=== PATIENT | female | born 1965 | race African-American/Black ===

== ENCOUNTER → 2024-08-12 13:02 | Outpatient (REF) | payer MEDICARE, OTHER, SELFPAY | LOC: RCS 13:02 | PROVIDERS: ATTENDING PHYSICIAN Internal Medicine Cardiovascular Disease; FAMILY PHYSICIAN Internal Medicine | DX: I10 Essential (primary) hypertension (principal); R06.02 Shortness of breath | CPT/HCPCS: 93306 ==

== ENCOUNTER → 2024-08-13 09:36 | Outpatient (REF) | payer MEDICARE, OTHER, SELFPAY | LOC: DHSLP 09:36 | PROVIDERS: ATTENDING PHYSICIAN Internal Medicine Critical Care Medicine; FAMILY PHYSICIAN Internal Medicine | DX: G47.33 Obstructive sleep apnea (adult) (pediatric) (principal); R09.02 Hypoxemia | CPT/HCPCS: 95810 ==

== ENCOUNTER 2024-12-26 07:28 | Day surgery (SDC) | payer MEDICARE, OTHER, SELFPAY ==
[2024-12-26 08:23] LABS: Glucose - Point of Care 95 mg/dl (70-99)
== END 2024-12-26 10:40 | disposition home or self-care (01) ==
LOC: CATH 07:28
PROVIDERS: ATTENDING PHYSICIAN Internal Medicine Cardiovascular Disease; FAMILY PHYSICIAN Internal Medicine; OTHER PHYSICIAN Internal Medicine Cardiovascular Disease
DX: I08.1 Rheumatic disorders of both mitral and tricuspid valves (principal); I70.0 Atherosclerosis of aorta
CPT/HCPCS: 93312; 93320; 93325; 82962

== ENCOUNTER 2025-01-06 06:24 | Day surgery (SDC) | payer MEDICARE, OTHER, SELFPAY ==
[2025-01-06] VITALS (12 sets, daily range): BP systolic 112–190; BP diastolic 65–176; BMI 34.9; BMI 36.8
[2025-01-06 07:22] LABS: Glucose - Point of Care 91 mg/dl (70-99)
[2025-01-06] MEDS: LOW STRENGTH ASPIRIN 162 MG PO (07:28)
[2025-01-06 07:38] LABS: Hematocrit 47.3 % (37.0-47.0); Hemoglobin 15.0 g/dL (12.0-16.0); Mean Corp Hgb Conc. 31.7 g/dL (33.0-37.0); Mean Corpuscular Volume 107.0 fL (81.0-99.0); Platelet Count 344 10^3/uL (130-400); Red Cell Dist. Width 23.6 % (11.5-14.5)
[2025-01-06] MEDS: NSS 291 ML IV (07:55)
--- NOTE | 2025-01-06 09:15 | ITS.CL.CATH ---
[employer] - Catheterization
Cardiac Catheterization
Procedure Report:
LEFT AND RIGHT HEART CATHETERIZATION
Date of Procedure: January 06, 2025
Referring: Dr. Katya Ayers
PROCEDURES:
1. Left heart catheterization, coronary angiogram.
2. Moderate sedation.
3. Right heart catheterization
INDICATION: Preoperative prior to mitral valve intervention
ACCESS: Right radial artery, 6Fr. sheath, under US guidance.
HEMODYNAMICS : (mmHg)
RA (m) : 16
RV (s/d,m) : 63/11, 60
PA (s/d, m) : 63/27, 42
PCWP (m) : 20
PA saturation: 65.7% on room air
AO saturation: 84.9% on room air
RA saturation: 66.5% on room air
Cardiac Output : 5.20 L/min by Kavon calculate
Cardiac Index : 2.58 L/min/m-2 by Kavon calculation
Systemic vascular resistance: 1277 dsc^(-5)
Pulmonary vascular resistance: 3.85 curtis unit
Heart rate: 75 bpm
AO (s/d) : 146/80
LVEDP : 24
No significant gradient across the aortic valve to suggest aortic stenosis.
CORONARY FINDINGS
Dominance: Codominant
Left Main Trunk (LMT): Large caliber vessel that gives rise to the LAD and LCx branches and is free of angiographic disease.
Left Anterior Descending Artery (LAD): Large caliber vessel that gives off 2 major diagonal branches as it courses along the anterior inter-ventricular groove before wrapping around the cardiac apex. The LAD and its branches are free of
angiographic disease.
Left Circumflex Artery (LCx): Large caliber codominant vessel that gives off 2 major obtuse marginal (OM) branches as it courses along the atrio-ventricular (AV) groove. There is mild diffuse atherosclerotic plaque
Right Coronary Artery (RCA): Small to medium caliber caliber dominant vessel that gives rise to a very small posterior descending artery (RPDA) and very small postero-lateral ventricular (RPLV) branches distally. The RCA and its branches are free
of angiographic disease.
SEDATION: 37 minutes of procedural sedation was utilized. IV Midazolam and IV Fentanyl were administered. An independent medical practice administrator was present to assist with and help manage the patient's level of consciousness and physiologic status.
RADIATION SUMMARY: Fluoro Time (min): 2.8, Dose (mGy): 322.47, DAP (Gy.cm2) : 23.6
Closure Device: There were no immediate intra-procedural complications. The sheath was pulled in the syrup machine laborer and a vascular-band applied to the right wrist for radial artery hemostasis using the patent hemostasis technique. Manual pressure was
held over right common femoral vein with successful hemostasis.
CONCLUSIONS
1. No obstructive coronary artery disease.
2. Significantly elevated right and left-sided filling pressures with severe pulmonary hypertension and normal cardiac output.
RECOMMENDATIONS
1. Wean radial band per protocol. Monitor right hand perfusion and for bleeding from the radial site following removal of the vascular-band following trans-radial access.
2. Continue aggressive medical therapy and risk factor modification for secondary CAD prevention.
3. Hydrate with normal saline to mitigate the risk of contrast-induced acute kidney injury.
4. CT surgery consult to determine options for mitral valve intervention for severe symptomatic mitral regurgitation noted on echocardiogram.
Copy to: Dr. Katya Ayers and Dr. Rd Tineo
Aurora Ceja MD, [facility], [facility]
[2025-01-06 09:24] LABS: Blood Urea Nitrogen 25 mg/dl (7-17); Calcium 8.9 mg/dl (8.4-10.2); Carbon Dioxide 27 mmol/L (22-30); Chloride 109 mmol/L (98-107); Estimated Creatinine Clearance 56 ml/min; Glucose 98 mg/dl (70-99); Potassium 4.1 mmol/L (3.5-5.1); Sodium 139 mmol/L (135-145); eGFR 51.50
[2025-01-06] MEDS: LASIX 40 MG IV (11:46)
== END 2025-01-06 12:02 | disposition home or self-care (01) ==
LOC: CATH 06:24
PROVIDERS: ATTENDING PHYSICIAN Internal Medicine Interventional Cardiology
DX: I27.20 Pulmonary hypertension, unspecified (principal); I50.32 Chronic diastolic (congestive) heart failure; I13.0 Hypertensive heart and chronic kidney disease with heart failure and stage 1 through stage 4 chronic kidney disease, or unspecified chronic kidney disease; E11.22 Type 2 diabetes mellitus with diabetic chronic kidney disease; N18.9 Chronic kidney disease, unspecified; I50.22 Chronic systolic (congestive) heart failure; Z79.01 Long term (current) use of anticoagulants; Z79.85 Long-term (current) use of injectable non-insulin antidiabetic drugs; Z79.899 Other long term (current) drug therapy
CPT/HCPCS: 99152; 99153; 80048; 82962; 85027; 93460; C1894

== ENCOUNTER 2025-02-28 14:15 | Inpatient (IN) | payer MEDICARE, OTHER, SELFPAY ==
[2025-02-28 14:38] VITALS: BP 117/68
[2025-02-28 14:46] VITALS: BP 117/58
[2025-02-28 14:47] VITALS: BMI 34.8
[2025-02-28 15:31] VITALS: BP 96/37
[2025-02-28 15:37] LABS: APTT 48.5 Sec (23.4-35.0)
--- NOTE | 2025-02-28 15:42 | PTCARENOTE ---
Pt a direct admit from home pre-operatively for an MVR +LOUIS E on Monday, 03/04. Pt AAOx3 w/no c/o CP or SOB. Pt ambulated into the rm using a single point cane w/a steady gate. Pt's VSS on arrival w/HR in the 70's & BP 117/58. Pt is SR on telemetry
monitoring. Pt oriented to rm, new IV line placed, & blood work drawn. Pt sent for pre-op testing as ordered. Plan of care ongoing.
--- NOTE | 2025-02-28 16:00 | HPS.HSE ---
Family Physician
-
Family Physician: Holli Gunn
Chief Complaint
-
pre-op admission for Xarelto to IV Heparin bridge
History of Present Illness
59-year-old female was electively admitted on 02/28/2025 for Xarelto to IV heparin conversion preadmission testing prior to mitral valve repair for severe mitral regurgitation, scheduled for 03/04/2025. Patient currently lives in a halfway and has
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 Please see CT office note from 01/27/25 for further details.
R/L heart cath 01/06/25:
RA (m) : 16
RV (s/d,m) : 63/11, 60
PA (s/d, m) : 63/27, 42
PCWP (m) : 20
Non-obstructive coronary disease
SHAVON 12/26/24:
Normal left ventricular size and systolic function. No regional wall motion abnormalities are seen. The ejection fraction is estimated at 60-65%. Mild concentric left ventricular hypertrophy. Normal right ventricular size and function. Thickened
restricted mitral leaflets with reduced excursion suggestive of rheumatic mitral valve disease. Mitral sclerosis without stenosis; mean mitral valve gradient 3 mmHg. Severe central mitral regurgitation with severely dilated left atrium. Moderate
tricuspid regurgitation. Estimated pulmonary artery pressure is 50 mmHg assuming right atrial pressure of 3 mmHg.
Medical History
Past Medical History
Past Medical History: Reports Other
Additional Past Medical History:
Pulmonary embolism 2018 & 2023 w/thrombectomy
Obstructive sleep apnea with CPAP use
Hypertension
Tobacco dependence
Type 2 diabetes
Depression
Hyperlipidemia
Von Willebrand disease
Polycythemia vera
Right subdural hematoma from fall requiring neurosurgical intervention (01/29/2021)
Iliac artery thrombosis
Cerebral hemorrhage
Chronic kidney disease stage II
Pulmonary hypertension
Hard of hearing
Past Surgical History: Reports Other
Additional Past Surgical History:
2004
Tonsillectomy
Right L4-L5 IL�LAUREN (02/01/2022)
Cautery of duodenal ectasia stomach ectasia at [facility] (2022)
Social History
Tobacco: Former Smoker (Quit 2021 ([id number] history))
Alcohol: None
Drug: None
Personal: Single
Living: Other (halfway)
Employment: Not Employed
Family History
Family History: Not pertinent
Allergies / Home Medications
Allergies reflects when Allergies were last updated in [facility].
Home Medications with original date entered in [facility]
Allergy/Medication List:
Allergies
Allergy/AdvReac Type Severity Reaction Status Date / Time
No Known Allergies Allergy Verified 01/06/25 07:41
Home Medications
�Medication �Instructions �Recorded
clonazepam 1 mg tablet 3 mg PO TID Mental Health/Anxiety 10/08/20
hydroxyurea 500 mg capsule 1,500 mg PO DAILY POLYCYTHEMIA VERA 10/08/20
rivaroxaban 20 mg tablet (Xarelto) 20 mg PO DAILY Blood clot 10/08/20
prevention/tx
atorvastatin 40 mg tablet 40 mg PO HS High cholesterol 01/12/21
bupropion HCl 150 mg 24 hr tablet, 150 mg PO DAILY mental health 06/15/22
extended release (Wellbutrin XL)
dapagliflozin propanediol 10 mg 10 mg PO DAILY Heart Failure 06/15/22
tablet (Farxiga)
metoprolol succinate 100 mg 50 mg (1/2 x 100 mg) PO DAILY #30 06/19/22
tablet,extended release 24 hr tabs
bupropion HCl 100 mg tablet 300 mg PO DAILY 12/26/24
cholecalciferol (vitamin D3) 10 20 mcg PO DAILY 12/26/24
mcg (400 unit) chewable tablet
(Vitamin D3)
famotidine 20 mg tablet 20 mg PO PRN PRN GERD 12/26/24
fluticasone propionate 50 1 spray intranasal DAILY 12/26/24
mcg/actuation nasal
spray,suspension
insulin glargine 100 unit/mL (3 10 unit SC BID 12/26/24
mL) subcutaneous pen (Basaglar
KwikPen U-100 Insulin)
magnesium 200 mg tablet 400 mg PO DAILY 12/26/24
melatonin 10 mg tablet 10 mg PO HS 12/26/24
pantoprazole 40 mg tablet,delayed 40 mg PO BID 12/26/24
release
quetiapine 100 mg tablet (Seroquel) 100 mg PO HS 12/26/24
semaglutide 0.25 mg or 0.5 mg (2 0.5 mg SC QWEEK 12/26/24
mg/3 mL) subcutaneous pen injector
(Ozempic)
zolpidem 12.5 mg tablet,extended 12.5 mg PO HS 12/26/24
release,multiphase
furosemide 40 mg tablet 60 mg (1.5 x 40 mg) PO DAILY Fluid 01/06/25
retention/Swelling #0 tabs
Review of Systems
-
History Source: Patient
Constitutional: Reports No Symptoms
EENT: Reports No Symptoms
Respiratory: Reports No Symptoms
Cardiac: Reports No Symptoms
Abdomen/GI: Reports No Symptoms
: Reports No Symptoms
Musculoskeletal: Reports No Symptoms
Skin: Reports No Symptoms
Neurological: Reports No Symptoms
Endocrine: Reports No Symptoms
Hematologic/Lymphatic: Reports No Symptoms
Psych: Reports No Symptoms
Physical Exam
Vital Signs
Vital Signs
Temp Pulse Resp BP Pulse Ox
98.4 F 77 18 96/37 98
02/28/25 14:52 02/28/25 15:31 02/28/25 14:52 02/28/25 15:31 02/28/25 14:52
Physical Exam
General: Well Developed, Well Nourished, No Apparent Distress, Comfortable and Conversant
HEENT: NormoCephalic, Anicteric, Moist mucous membranes, PERRLA, No Ptosis and Neck Nontender
Respiratory: Clear
Cardiac: S1/S2, Regular Rhythm and Murmur (II/ HSM LSB 5th ICS>axillae)
Breast: Deferred by me
GI: Soft, Non Tender, Non Distended and Normal Bowel Sounds
Rectal: Deferred by Provider
Genito-urinary: Deferred by me
Musculoskeletal: No Clubbing, No Cyanosis, No Edema and Other (ambulates with cane)
Skin: Warm and Dry
Neuro: AO x 3, Nonfocal/grossly intact and No Sensory Deficits
Hematologic/Lymphatic: No Lymphadenopathy
Psych: Calm
Laboratory Results
-
Laboratory Results
APTT 48.5 Sec (23.4-35.0) H 02/28/25 15:18
Data Reviewed
-
Diagnostic Radiology: Report Reviewed by me and Discussed with Physician
CT Scan: Report Reviewed by me and Discussed with Physician
Lab Data: Labs Reviewed by me and Discussed with Physician
Old Records: Reviewed
Impression/Plan
-
IMPRESSION: 59-year-old female admitted preop for Xarelto conversion to IV heparin (prior to planned MVR on 03/04/25) due to history of JAK2 polycythemia vera with hypercoagulable complications.
PLAN:
# JAK2 polycythemia vera, with hx pulmonary embolism 2018
- Last Xarelto begin IV Heparin per protocol
- continue hydroxyurea
- last Xarelto dose 02/27/25
# Severe mitral regurgitation
- for MV repair vs replacement and left atrial appendage clip with Dr. Tineo 03/04
- continue home Lasix
# T2DM
- stop Farxiga and Ozempic d/t scheduled MVR 03/04
- continue Basiglar 10u BID
# Depression
-continue home Seroquel, clonazepam, Bupropion, Ambien, melatonin
# Hyperlipidemia
- continue home Lipitor
# GERD
- continue home Protonix
# Class II obesity (BMI 34.8)
- carb controlled diet
[2025-02-28 16:45] VITALS: BMI 34.8
[2025-02-28] MEDS: HEPARIN 25000 UNITS/250 ML IV (17:59)
[2025-02-28] MEDS: FLUSH (NSS) 1 FLUSH IV (18:03)
[2025-02-28 18:09] LABS: Glucose - Point of Care 109 mg/dl (70-99)
[2025-02-28 19:38] VITALS: BP 120/74
[2025-02-28 19:59] LABS: Hematocrit 42.5 % (37.0-47.0); Hemoglobin 14.0 g/dL (12.0-16.0); Mean Corp Hgb Conc. 32.9 g/dL (33.0-37.0); Mean Corpuscular Volume 117.1 fL (81.0-99.0); Platelet Count 279 10^3/uL (130-400); Red Cell Dist. Width 18.6 % (11.5-14.5)
[2025-02-28 20:26] LABS: Glucose - Point of Care 118 mg/dl (70-99)
[2025-02-28] MEDS: PROTONIX 40 MG PO (20:26)
[2025-02-28] MEDS: LANTUS 0.1 UNITS SC (20:26)
[2025-02-28 21:57] LABS: Normal RBC Morphology No
[2025-02-28 21:58] LABS: Anisocytosis 1+
[2025-02-28 22:02] LABS: Macrocytosis 3+; Ovalocytes 1+
--- NOTE | 2025-02-28 22:12 | PTCARENOTE ---
Patient received at change of shift out of bed ambulating. Heparin gtt infusing at 1000units/hr. The patient offers no complaints of pain. Sinus rhythm on telemetry. Oxygen saturation 98% on room air. Plan of care discussed. Home med rec completed.
Call kolb within reach. Care ongoing.
[2025-02-28] MEDS: AMBIEN 10 MG PO (22:20)
[2025-02-28] MEDS: LIPITOR 40 MG PO (22:20)
[2025-02-28] MEDS: SEROQUEL 100 MG PO (22:20)
[2025-02-28] MEDS: KLONOPIN 1 MG PO (22:20)
[2025-02-28] MEDS: MELATONIN 10 MG PO (22:20)
[2025-02-28 22:24] VITALS: BP 98/65
[2025-03-01] VITALS (8 sets, daily range): BP systolic 98–128; BP diastolic 59–73; BMI 34.9
[2025-03-01] MEDS: TYLENOL 650 MG PO (00:07)
[2025-03-01 00:34] LABS: APTT 74.6 Sec (23.4-35.0)
--- NOTE | 2025-03-01 03:44 | W.PN.CT ---
Today's Communication / Plan
-
-no issues overnight
-continue iv Heparin- renewed
-follow PAT results
-plans for mitral valve repair for severe mitral regurgitation, scheduled for 03/04/2025.
Assessment / Plan
-
Impression:
- electively admitted on 02/28/2025 for Xarelto to IV heparin conversion preadmission testing prior to mitral valve repair for severe mitral regurgitation, scheduled for 03/04/2025.
- JAK2 polycythemia vera with history of hypercoagulable complications requiring chronic daily DOAC
- Pulmonary embolism 2018 & 2023 w/thrombectomy
- Obstructive sleep apnea with CPAP use
- Hypertension
- Tobacco dependence
- Type 2 diabetes
- Depression
- Hyperlipidemia
- Von Willebrand disease
- Polycythemia vera
- Right subdural hematoma from fall requiring neurosurgical intervention (01/29/2021)
- Iliac artery thrombosis
- Cerebral hemorrhage
- Chronic kidney disease stage II
- Pulmonary hypertension
- Hard of hearing
- 2004
- Tonsillectomy
- Right L4-L5 IL�LAUREN (02/01/2022)
- Cautery of duodenal ectasia stomach ectasia at [facility] (2022)
Discussed patient care with: Nursing and Care Team
Subjective
-
Date of Service: March 01, 2025
Objective Data
-
APTT 74.6 Sec (23.4-35.0) H 03/01/25 00:16
Vital Signs
Vital Signs
Temp Pulse Resp BP Pulse Ox
98 F 74 16 98/59 93
03/01/25 03:12 03/01/25 03:12 03/01/25 03:12 03/01/25 03:10 03/01/25 03:12
CT Intake/Output/Weight
0902/28/25 03/01/25
06:59 18:59 06:59
Intake Total 720 / 720
Output Total 240 / 240
Balance 480 / 480
SaO2: 93
Physical Exam
-
General: Awake and AOx3
Cardiovascular: Regular rate & rhythm and Murmur (2/6 systolic @ lsb)
Respiratory: Clear
Extremities: No Edema
General: Well Developed, Well Nourished, No Apparent Distress, Comfortable and Conversant
HEENT: NormoCephalic, Anicteric, Moist mucous membranes, PERRLA, No Ptosis and Neck Nontender
Respiratory: Clear
Cardiac: S1/S2, Regular Rhythm and Murmur (II/ HSM LSB 5th ICS>axillae)
Data Reviewed
-
Lab Results: Results Reviewed
Medications: Active Meds Reviewed
CT Scan: Report Reviewed
ECG: Report Reviewed and Image Reviewed
[2025-03-01 06:15] LABS: Hematocrit 39.9 % (37.0-47.0); Hemoglobin 13.5 g/dL (12.0-16.0); Mean Corp Hgb Conc. 33.8 g/dL (33.0-37.0); Mean Corpuscular Volume 117.0 fL (81.0-99.0); Platelet Count 262 10^3/uL (130-400); Red Cell Dist. Width 18.2 % (11.5-14.5)
[2025-03-01 06:21] LABS: INR 1.25; PT 16.0 Sec (11.4-14.6)
[2025-03-01 06:22] LABS: APTT 71.0 Sec (23.4-35.0)
[2025-03-01 06:36] LABS: ALT (SGPT) 19 U/L (0-35); AST (SGOT) 19 U/L (14-36); Albumin 3.6 g/dl (3.5-5.0); Alkaline Phosphatase 144 U/L (38-126); Blood Urea Nitrogen 26 mg/dl (7-17); Calcium 9.1 mg/dl (8.4-10.2); Carbon Dioxide 27 mmol/L (22-30); Chloride 107 mmol/L (98-107); Estimated Creatinine Clearance 56 ml/min; Glucose 118 mg/dl (70-99); Potassium 4.0 mmol/L (3.5-5.1); Sodium 138 mmol/L (135-145); Total Protein 5.9 g/dl (6.3-8.2); eGFR 51.50
[2025-03-01 07:59] LABS: Glucose - Point of Care 119 mg/dl (70-99)
[2025-03-01] MEDS: WELLBUTRIN REGULAR RELEASE 300 MG PO (09:21)
[2025-03-01] MEDS: LASIX 60 MG PO (09:21)
[2025-03-01] MEDS: KLONOPIN 1 MG PO ×3 (09:22→22:16)
[2025-03-01] MEDS: HYDREA 1500 MG PO (09:22)
[2025-03-01] MEDS: WELLBUTRIN XL (24 hour extended release) 150 MG PO (09:22)
[2025-03-01] MEDS: MAGNESIUM OXIDE 400 MG PO (09:22)
[2025-03-01] MEDS: VITAMIN D3 (cholecalciferol) 20 MCG PO (09:22)
[2025-03-01] MEDS: PROTONIX 40 MG PO ×2 (09:22→20:04)
[2025-03-01] MEDS: TOPROL XL 50 MG PO (09:22)
[2025-03-01] MEDS: LANTUS 0.1 UNITS SC ×2 (09:23→21:12)
[2025-03-01 10:00] LABS: Glycohemoglobin (HgbA1c) 6.1 % (4.0-5.6)
[2025-03-01 12:21] LABS: Glucose - Point of Care 98 mg/dl (70-99)
[2025-03-01 12:52] LABS: Urine Character Clear (Clear)
[2025-03-01 13:21] LABS: APTT 121.3 Sec (23.4-35.0)
[2025-03-01] MEDS: HEPARIN 25000 UNITS/250 ML IV (16:43)
[2025-03-01 16:55] LABS: Glucose - Point of Care 124 mg/dl (70-99)
[2025-03-01 19:22] LABS: Hepatitis C Antibody Negative (Negative)
[2025-03-01 20:45] LABS: APTT 69.8 Sec (23.4-35.0)
[2025-03-01 21:16] LABS: Glucose - Point of Care 109 mg/dl (70-99)
[2025-03-01] MEDS: MELATONIN 10 MG PO (22:16)
[2025-03-01] MEDS: SEROQUEL 100 MG PO (22:16)
[2025-03-01] MEDS: LIPITOR 40 MG PO (22:16)
[2025-03-01] MEDS: AMBIEN 10 MG PO (22:16)
--- NOTE | 2025-03-01 23:29 | PTCARENOTE ---
Pt rec'd at change of shift oob in recliner chair. heparin gtt readjusted per protocol for ptt result of 69.8. Current rate 1100 units/hr.
Sinus on telemetry. Pt's own cpap in use. call kolb within reach
[2025-03-02] VITALS (7 sets, daily range): BP systolic 106–133; BP diastolic 68–81; BMI 35.1
--- NOTE | 2025-03-02 04:02 | PTCARENOTE ---
Pt slept with own cpap until 0400 then requested it be taken off. am labs drawn,results pending.
[2025-03-02 04:12] LABS: APTT 75.9 Sec (23.4-35.0)
[2025-03-02 04:24] LABS: Blood Urea Nitrogen 22 mg/dl (7-17); Calcium 8.5 mg/dl (8.4-10.2); Carbon Dioxide 28 mmol/L (22-30); Chloride 109 mmol/L (98-107); Estimated Creatinine Clearance 68 ml/min; Glucose 111 mg/dl (70-99); Magnesium 2.1 mg/dl (1.6-2.3); Potassium 3.8 mmol/L (3.5-5.1); Sodium 140 mmol/L (135-145); eGFR > 60.00
--- NOTE | 2025-03-02 05:47 | W.PN.CT ---
Addendum entered and electronically signed by Rd Tineo MD 03/02/25 08:46:
I saw and examined the patient.
The PA's note was reviewed and I agree with the note.
Comment:
Looks good, plan for surgery Monday first case with me. Continue hep gtt till morning of OR.
Original Note:
Today's Communication / Plan
-
-no issues overnight
-continue iv Heparin
-K replaced
-plans for mitral valve repair for severe mitral regurgitation, scheduled for 03/04/2025.
Assessment / Plan
-
Impression
- electively admitted on 02/28/2025 for Xarelto to IV heparin conversion preadmission testing prior to mitral valve repair for severe mitral regurgitation, scheduled for with Dr. Tineo.
- JAK2 polycythemia vera with history of hypercoagulable complications requiring chronic daily DOAC
- Pulmonary embolism 2018 & 2023 w/thrombectomy
- Obstructive sleep apnea with CPAP use
- Hypertension
- Tobacco dependence
- Type 2 diabetes
- Depression
- Hyperlipidemia
- Von Willebrand disease
- Polycythemia vera
- Right subdural hematoma from fall requiring neurosurgical intervention (01/29/2021)
- Iliac artery thrombosis
- Cerebral hemorrhage
- Chronic kidney disease stage II
- Pulmonary hypertension
- Hard of hearing
- 2004
- Tonsillectomy
- Right L4-L5 IL�LAUREN (02/01/2022)
- Cautery of duodenal ectasia stomach ectasia at [facility] (2022)
Subjective
-
Date of Service: March 02, 2025
Objective Data
-
Lab Results
03/01/25 06:04
03/02/25 03:49
PT 16.0 Sec (11.4-14.6) H 03/01/25 06:04
INR 1.25 03/01/25 06:04
APTT 75.9 Sec (23.4-35.0) H 03/02/25 03:49
Vital Signs
Vital Signs
Temp Pulse Resp BP Pulse Ox
98.1 F 75 24 133/68 95
03/02/25 03:40 03/02/25 03:40 03/02/25 03:40 03/02/25 03:40 03/02/25 03:[address]
CT Intake/Output/Weight
03/01/25 03/01/25 03/02/25
06:59 18:59 06:59
Intake Total 840 / 840 240 / 240
Output Total 340 / 340 950 / 1100 150 / 1100
Balance 500 / 500 -950 / -860 90 / -860
SaO2: 95
Physical Exam
-
General: Awake, Oriented and AOx3
Cardiovascular: Regular rate & rhythm and No Rub
Respiratory: Clear and Equal
Extremities: No Edema and No Erythema
Data Reviewed
-
Lab Results: Results Reviewed
Medications: Active Meds Reviewed
Chest X-Ray: Report Reviewed
ECG: Report Reviewed
[2025-03-02 08:35] LABS: Glucose - Point of Care 92 mg/dl (70-99)
[2025-03-02] MEDS: MAGNESIUM OXIDE 400 MG PO (08:36)
[2025-03-02] MEDS: WELLBUTRIN REGULAR RELEASE 300 MG PO (08:36)
[2025-03-02] MEDS: LASIX 60 MG PO (08:36)
[2025-03-02] MEDS: TOPROL XL 50 MG PO (08:37)
[2025-03-02] MEDS: HYDREA 1500 MG PO (08:37)
[2025-03-02] MEDS: WELLBUTRIN XL (24 hour extended release) 150 MG PO (08:37)
[2025-03-02] MEDS: PROTONIX 40 MG PO ×2 (08:37→21:14)
[2025-03-02] MEDS: VITAMIN D3 (cholecalciferol) 20 MCG PO (08:37)
[2025-03-02] MEDS: KLONOPIN 1 MG PO ×3 (08:37→23:01)
[2025-03-02] MEDS: LANTUS 0.1 UNITS SC ×2 (08:37→21:14)
[2025-03-02] MEDS: KCL 40 MEQ PO (08:42)
[2025-03-02 10:37] LABS: APTT 111.1 Sec (23.4-35.0)
--- NOTE | 2025-03-02 12:25 | PTCARENOTE ---
03/02/2025 Received patient in AM in bed. Patient awake, alert and oriented x4. Pt on monitoring and evaluation advisor NSR, afebrile. Pt with no complaints of chest pain, palpitations, or shortness of breath. IV Heparin infusing at 1100 units/hr. Pt awaiting MVR to be
done on 03/04/25.
[2025-03-02 12:40] LABS: Glucose - Point of Care 117 mg/dl (70-99)
[2025-03-02] MEDS: HEPARIN 25000 UNITS/250 ML IV (16:20)
[2025-03-02 16:41] LABS: Glucose - Point of Care 114 mg/dl (70-99)
[2025-03-02 17:57] LABS: APTT 64.6 Sec (23.4-35.0)
[2025-03-02] MEDS: LIPITOR 40 MG PO (21:14)
[2025-03-02 21:16] LABS: Glucose - Point of Care 106 mg/dl (70-99)
[2025-03-02] MEDS: AMBIEN 10 MG PO (23:01)
[2025-03-02] MEDS: MELATONIN 10 MG PO (23:01)
[2025-03-02] MEDS: SEROQUEL 100 MG PO (23:01)
[2025-03-03] VITALS (10 sets, daily range): BP systolic 107–137; BP diastolic 62–94; BMI 35.0
[2025-03-03 00:17] LABS: APTT 59.7 Sec (23.4-35.0)
--- NOTE | 2025-03-03 05:38 | W.PN.CT ---
Today's Communication / Plan
-
-no issues overnight
-continue iv Heparin
-plans for mitral valve repair for severe mitral regurgitation, scheduled for 03/04/2025.
Assessment / Plan
-
Impression
- electively admitted on 02/28/2025 for Xarelto to IV heparin conversion preadmission testing prior to mitral valve repair for severe mitral regurgitation, scheduled for with Dr. Tineo.
- JAK2 polycythemia vera with history of hypercoagulable complications requiring chronic daily DOAC
- Pulmonary embolism 2018 & 2023 w/thrombectomy
- Obstructive sleep apnea with CPAP use
- Hypertension
- Tobacco dependence
- Type 2 diabetes
- Depression
- Hyperlipidemia
- Von Willebrand disease
- Polycythemia vera
- Right subdural hematoma from fall requiring neurosurgical intervention (01/29/2021)
- Iliac artery thrombosis
- Cerebral hemorrhage
- Chronic kidney disease stage II
- Pulmonary hypertension
- Hard of hearing
- 2004
- Tonsillectomy
- Right L4-L5 IL�LAUREN (02/01/2022)
- Cautery of duodenal ectasia stomach ectasia at [facility] (2022)
Subjective
-
Date of Service: March 03, 2025
Objective Data
-
PT 16.0 Sec (11.4-14.6) H 03/01/25 06:04
INR 1.25 03/01/25 06:04
APTT 59.7 Sec (23.4-35.0) H 03/02/25 23:54
Vital Signs
Vital Signs
Temp Pulse Resp BP Pulse Ox
98.1 F 76 20 137/87 99
03/03/25 05:21 03/03/25 05:21 03/03/25 05:21 03/03/25 05:21 03/03/25 05:21
CT Intake/Output/Weight
03/02/25 03/02/25 03/03/25
06:59 18:59 06:59
Intake Total 240 / 240
Output Total 150 / 1100 2250 / 2750 500 / 2750
Balance 90 / -860 -2250 / -2750 -500 / -2750
SaO2: 99
Physical Exam
-
General: Awake and Oriented
Cardiovascular: Regular rate & rhythm
Respiratory: Clear
Extremities: No Edema
Data Reviewed
-
Lab Results: Results Reviewed
Medications: Active Meds Reviewed
Chest X-Ray: Report Reviewed
ECG: Report Reviewed
[2025-03-03 05:40] LABS: Hematocrit 42.4 % (37.0-47.0); Hemoglobin 13.6 g/dL (12.0-16.0); Mean Corp Hgb Conc. 32.1 g/dL (33.0-37.0); Mean Corpuscular Volume 120.1 fL (81.0-99.0); Platelet Count 263 10^3/uL (130-400); Red Cell Dist. Width 19.0 % (11.5-14.5)
[2025-03-03 05:58] LABS: APTT 135.4 Sec (23.4-35.0)
[2025-03-03 05:59] LABS: Blood Urea Nitrogen 22 mg/dl (7-17); Calcium 9.4 mg/dl (8.4-10.2); Carbon Dioxide 27 mmol/L (22-30); Chloride 109 mmol/L (98-107); Estimated Creatinine Clearance 68 ml/min; Glucose 95 mg/dl (70-99); Magnesium 2.2 mg/dl (1.6-2.3); Potassium 4.1 mmol/L (3.5-5.1); Sodium 141 mmol/L (135-145); eGFR > 60.00
--- NOTE | 2025-03-03 07:50 | PTCARENOTE ---
Assumed care of pt from prev nsg shift; Pt AAox3 w/no c/o CP or SOB. Pt's VSS w/HR in the 70's & BP 124/64 this AM. Pt is SR on telemetry monitoring. Pt w/IV Heparin infusing through a patent IV line as ordered. Discussed plan for surgery prep for
tonight & tomm AM. Pt verbalized her understanding. Pt w/no addtl needs at this time. Plan of care ongoing.
[2025-03-03 07:52] LABS: Glucose - Point of Care 99 mg/dl (70-99)
[2025-03-03] MEDS: LASIX 60 MG PO (09:33)
[2025-03-03] MEDS: VITAMIN D3 (cholecalciferol) 20 MCG PO (09:33)
[2025-03-03] MEDS: PROTONIX 40 MG PO ×2 (09:33→20:16)
[2025-03-03] MEDS: WELLBUTRIN XL (24 hour extended release) 150 MG PO (09:33)
[2025-03-03] MEDS: WELLBUTRIN REGULAR RELEASE 300 MG PO (09:33)
[2025-03-03] MEDS: TOPROL XL 50 MG PO (09:34)
[2025-03-03] MEDS: KLONOPIN 1 MG PO ×3 (09:34→22:36)
[2025-03-03] MEDS: LANTUS 0.1 UNITS SC ×2 (09:34→20:16)
[2025-03-03] MEDS: MAGNESIUM OXIDE 400 MG PO (09:34)
[2025-03-03] MEDS: HYDREA 1500 MG PO (10:48)
[2025-03-03 12:12] LABS: Glucose - Point of Care 129 mg/dl (70-99)
--- NOTE | 2025-03-03 13:37 | W.CVOR.SURPR ---
CVOR Surgeon Immed Pre Op
-
I have examined this patient prior to performance of the scheduled procedure.
The patient's condition is unchanged from the time of the dictated/written History and
Physical and the patient is able to undergo the scheduled procedure.
Sternotomy, MV repair poss replacement + LOUIS E
[2025-03-03 13:40] LABS: APTT 66.1 Sec (23.4-35.0)
[2025-03-03] MEDS: HEPARIN 25000 UNITS/250 ML IV (14:28)
--- NOTE | 2025-03-03 14:55 | CM ---
Chart reviewed. Patient is independent of ADLS, staying with a friend until 03/26. 1 [place] trailer, 4 TRICE, ambulates with a SPC. Reviewed preoperative and postoperative instructions and restrictions, along with showering guidelines. Gave patient
Cardiac Surgery Book. Patient is agreeable to a visit by CT Transitional RN. Plan is for the patient to return to her friends trailer at [facility], [address], [place]. Plan is for the patient to return to her friends trailer with CT
Transitional RN. CM to follow
[2025-03-03] MEDS: SENOKOT-S 1 TABLET PO (15:22)
--- NOTE | 2025-03-03 16:07 | PTCARENOTE ---
Report given to Salvatore in CVICU & pt transferred to [id number] w/her personal belongings incl own CPAP, cell phone & devulcanizer charger, laptop & devulcanizer charger & a suitcase w/clothing.
[2025-03-03 17:20] LABS: Glucose - Point of Care 140 mg/dl (70-99)
[2025-03-03 21:09] LABS: APTT 83.6 Sec (23.4-35.0)
--- NOTE | 2025-03-03 21:41 | PTCARENOTE ---
Assumed care of patient at 1900, report received from prior shift RN, Patient OOB to chair, denies pain, Alert and Oriented, follows all commands, PERLLA. Pulse all palipitable, weak in bilateral lower extremities. Normal sinus on monitor, BP
stable. On room, Lung sounds clear bilateral and diminished at bases. Tolorating PO intake, ate 100% of dinner tray and then ask for snack, BGL 140 prior to meal. 10 units of schedule Lantus given at 1999.please see workflow for detail
assessment
[2025-03-03] MEDS: SEROQUEL 100 MG PO (22:37)
[2025-03-03] MEDS: MELATONIN 10 MG PO (22:37)
[2025-03-03] MEDS: AMBIEN 10 MG PO (22:37)
[2025-03-03] MEDS: LIPITOR 40 MG PO (22:37)
[2025-03-04] VITALS (18 sets, daily range): BP systolic 83–115; BP diastolic 55–73; PULSE 2–73; BMI 34.7
--- NOTE | 2025-03-04 00:17 | PTCARENOTE ---
patient reassed, CHG bath completed, shaved and linens changed for upcoming surgery. Paite remains alert and oriented, NSR, BP's stable,
[2025-03-04 03:47] LABS: APTT 98.1 Sec (23.4-35.0)
--- NOTE | 2025-03-04 04:14 | PTCARENOTE ---
patient had second CHG wash this morning with CHG wipes, patient vitals are stable, NSR on monitor , ALert and oreinted,
[2025-03-04 04:51] LABS: Blood Urea Nitrogen 24 mg/dl (7-17); Calcium 9.5 mg/dl (8.4-10.2); Carbon Dioxide 28 mmol/L (22-30); Chloride 108 mmol/L (98-107); Estimated Creatinine Clearance 61 ml/min; Glucose 113 mg/dl (70-99); Magnesium 2.0 mg/dl (1.6-2.3); Potassium 4.1 mmol/L (3.5-5.1); Sodium 139 mmol/L (135-145); eGFR 57.17
[2025-03-04] MEDS: LOPRESSOR 25 MG PO (04:52)
[2025-03-04] MEDS: BACTROBAN 2% OINTMENT 1 APPLIC NASAL ×2 (04:55→20:35)
[2025-03-04] MEDS: PROTONIX 40 MG PO (04:55)
[2025-03-04] MEDS: MAGNESIUM OXIDE 400 MG PO (04:58)
[2025-03-04 07:35] LABS: ACT+ - POC 129 Seconds (82-134)
[2025-03-04 07:43] LABS: Urine Character Clear (Clear)
[2025-03-04 08:16] LABS: Urine Red Blood Cell 0-2 /HPF (0-2); Urine White Cell 0-2 /HPF (0-5)
[2025-03-04 08:32] LABS: ACT+ - POC 856 Seconds (82-134)
[2025-03-04 08:32] LABS: B.E. - POC -1.3 mmol/L; Glucose - POC 94 mg/dl (70-99); HCO3 - POC 23 mmol/L (21-28); Hematocrit - POC 37 % PCV (37-47); Hemodilution- POC No; Hemoglobin Calculated - POC 12.5; Ionized Calcium - POC 1.16 mmol/L (1.15-1.33); Lactate - POC 1.20 mmol/L (0.36-0.75); O2 Saturation %Calculated-POC 99.6 % (94-98); PCO2 - POC 34 mmHg (35-48); PO2 - POC 177 mmHg (83-108); Potassium - POC 3.1 mmol/L (3.5-5.1); Sodium - POC 142 mmol/L (136-145); Specimen Type - POC Arterial; pH - POC 7.43 (7.35-7.45)
[2025-03-04 08:46] LABS: ACT+ - POC 671 Seconds (82-134)
[2025-03-04 08:58] LABS: B.E. - POC 11.4 mmol/L; Glucose - POC 96 mg/dl (70-99); HCO3 - POC 34 mmol/L (21-28); Hematocrit - POC 34 % PCV (37-47); Hemodilution- POC Yes; Hemoglobin Calculated - POC 11.4; Ionized Calcium - POC 1.02 mmol/L (1.15-1.33); Lactate - POC 0.76 mmol/L (0.36-0.75); O2 Saturation %Calculated-POC 100.0 % (94-98); PCO2 - POC 36 mmHg (35-48); PO2 - POC 548 mmHg (83-108); POC Comment CPB; Potassium - POC 3.0 mmol/L (3.5-5.1); Sodium - POC 147 mmol/L (136-145); Specimen Type - POC Arterial; pH - POC 7.58 (7.35-7.45)
[2025-03-04 09:05] LABS: B.E. - POC 7.4 mmol/L; Glucose - POC 108 mg/dl (70-99); HCO3 - POC 36 mmol/L (21-28); Hematocrit - POC 35 % PCV (37-47); Hemodilution- POC Yes; Hemoglobin Calculated - POC 12.1; Ionized Calcium - POC 1.16 mmol/L (1.15-1.33); Lactate - POC 1.26 mmol/L (0.36-0.75); O2 Saturation %Calculated-POC 99.9 % (94-98); PCO2 - POC 70 mmHg (35-48); PO2 - POC 382 mmHg (83-108); POC Comment CPB; Potassium - POC 4.3 mmol/L (3.5-5.1); Sodium - POC 148 mmol/L (136-145); Specimen Type - POC Arterial; pH - POC 7.32 (7.35-7.45)
[2025-03-04 09:08] LABS: ACT+ - POC 540 Seconds (82-134)
[2025-03-04 09:19] LABS: B.E. - POC 9.0 mmol/L; Glucose - POC 120 mg/dl (70-99); HCO3 - POC 35 mmol/L (21-28); Hematocrit - POC 36 % PCV (37-47); Hemodilution- POC Yes; Hemoglobin Calculated - POC 12.1; Ionized Calcium - POC 1.12 mmol/L (1.15-1.33); Lactate - POC 1.55 mmol/L (0.36-0.75); O2 Saturation %Calculated-POC 99.9 % (94-98); PCO2 - POC 53 mmHg (35-48); PO2 - POC 358 mmHg (83-108); POC Comment CPB; Potassium - POC 4.5 mmol/L (3.5-5.1); Sodium - POC 147 mmol/L (136-145); Specimen Type - POC Arterial; pH - POC 7.43 (7.35-7.45)
[2025-03-04 09:26] LABS: ACT+ - POC 485 Seconds (82-134)
[2025-03-04 09:38] LABS: ACT+ - POC 554 Seconds (82-134)
[2025-03-04 09:45] LABS: B.E. - POC 7.7 mmol/L; Glucose - POC 132 mg/dl (70-99); HCO3 - POC 33 mmol/L (21-28); Hematocrit - POC 35 % PCV (37-47); Hemodilution- POC Yes; Hemoglobin Calculated - POC 12.0; Ionized Calcium - POC 1.10 mmol/L (1.15-1.33); Lactate - POC 1.43 mmol/L (0.36-0.75); O2 Saturation %Calculated-POC 99.9 % (94-98); PCO2 - POC 47 mmHg (35-48); PO2 - POC 345 mmHg (83-108); POC Comment CPB; Potassium - POC 4.4 mmol/L (3.5-5.1); Sodium - POC 146 mmol/L (136-145); Specimen Type - POC Arterial; pH - POC 7.45 (7.35-7.45)
[2025-03-04] MEDS: ANCEF 10 IV ×2 (09:45→12:14)
[2025-03-04 09:54] LABS: ACT+ - POC 574 Seconds (82-134)
[2025-03-04 10:24] LABS: B.E. - POC 4.2 mmol/L; Glucose - POC 138 mg/dl (70-99); HCO3 - POC 25 mmol/L (21-28); Hematocrit - POC 32 % PCV (37-47); Hemodilution- POC Yes; Hemoglobin Calculated - POC 11.0; Ionized Calcium - POC 1.01 mmol/L (1.15-1.33); Lactate - POC 1.53 mmol/L (0.36-0.75); O2 Saturation %Calculated-POC 100.0 % (94-98); PCO2 - POC 26 mmHg (35-48); PO2 - POC 508 mmHg (83-108); POC Comment WARM; Potassium - POC 4.7 mmol/L (3.5-5.1); Sodium - POC 145 mmol/L (136-145); Specimen Type - POC Arterial; pH - POC 7.59 (7.35-7.45)
[2025-03-04 10:25] LABS: ACT+ - POC 140 Seconds (82-134)
[2025-03-04 10:34] LABS: B.E. - POC 1.6 mmol/L; Glucose - POC 155 mg/dl (70-99); HCO3 - POC 26 mmol/L (21-28); Hematocrit - POC 34 % PCV (37-47); Hemodilution- POC Yes; Hemoglobin Calculated - POC 11.5; Ionized Calcium - POC 1.25 mmol/L (1.15-1.33); Lactate - POC 2.69 mmol/L (0.36-0.75); O2 Saturation %Calculated-POC 99.7 % (94-98); PCO2 - POC 42 mmHg (35-48); PO2 - POC 205 mmHg (83-108); POC Comment POST; Potassium - POC 3.8 mmol/L (3.5-5.1); Sodium - POC 144 mmol/L (136-145); Specimen Type - POC Arterial; pH - POC 7.41 (7.35-7.45)
--- NOTE | 2025-03-04 10:41 | W.PN.CT.SURG ---
CT Surgery Operative Note
-
CARDIAC SURGERY OPERATIVE REPORT
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
Postoperative Diagnosis: Same
Procedure(s) Performed:
1. Standard sternotomy with aortic and bicaval cannulation
2. Left atrial appendage exclusion
3. Radical mitral valve repair [resection of P1 P2 extremely thickened cords that was tethering down the posterior leaflet, placement of new cords x 2 the posterior leaflet, cleft closure at P1 P2 and P2 P3 as well as A2 A3, 30 mm annuloplasty ring]
4. Transesophageal echocardiography
5. Placement of temporary atrial ventricular pacing wires
Date of Surgery: 03/04/2025
Comorbidities:
1. Severe mitral valve insufficiency, mixed pathology with type IIIa tethering of the posterior leaflet due to thickened cords of P1 and P2
2. Chronic kidney disease, stage II
3. Major depressive disorder and anxiety
4. Hypertension
5. Hyperlipidemia
6. JAK2 gene mutation with hypercoagulopathy
7. Von Willebrand's disease
8. Diabetes type 2
9. Morbidly obese with a BMI of 34
10. PTSD
11. Polycythemia vera
12. Prior CVA and pulm embolism
Attending Surgeon: Rd Tineo MD, MS
Assistants: Diamond Holley PA-C (present and necessary to observation assistant, retraction, suction, exposure, suture management, and wound closure under my direction). Vane Keating MD (did portions of the mitral and LOUIS E), Fransisco Pena MD (PGY 2 Cardiac
surgery resident, performed sternotomy and closure)
Anesthesiology: Danish Ontiveros MD and Gabriella Santillan CRNA
Scrub and Circulating RNs: Amparo Tolentino RN, Alcides Magdaleno RN
Cloth Finishing Range Operator: Jessica Mccullough CCP
Anesthesia: GETA
EBL: per perfusion records
Products: none
CPB Time: 99 minutes
Aortic Cross Clamp Time: 75 minutes
Indication(s) for Procedures: This is a 59-year-old female who has a complex list of comorbidities including hypercoagulable disorder that resulted in a previous CVA and pulmonary embolism secondary to hypercoagulable disorder and polycythemia vera.
She also has mixed pathology mitral valve disease and also complex social history. She was offered mitral valve repair with a higher than average likelihood of replacement given the valve pathology. Due to her history of CVAs and coagulopathy,
her left atrial appendage will be ligated at time of surgery.
Mitral Valve Description: Overall the leaflets are relatively normal however there was extremely thick cords at the P1 and P2 scallops and the posterior leaflet. These cords were so thick that they ended up tethering down the leaflet and involve
the undersurface encasing the secondary cords. The mitral valve annulus was moderately dilated.
Findings: Her left ventricular ejection fraction preoperatively was normal at 55% with no significant regional wall motion abnormalities. Following surgery her EF remained the same at 60% with no new regional wall motion abnormalities. She had a
moderate degree of tricuspid valve insufficiency preop secondary to some annular dilatation. She had severe mitral valve insufficiency. There were extremely thickened cords with shortening to the papillary muscle heads at the P1 and P2 scallop of
the posterior leaflet. These were essentially tethered down the leaflet of the ventricular aspect and keep them open. Most of the MR jet was located here. These thickened cords were transected at the level of the papillary muscle heads and then
taken off sharply using a 15 blade and the undersurface of the posterior leaflet. Multiple clefts were close at P1 and P2 as well as P2 and P3 as well as A2 and A3. I then placed a total of 11 nonpledgeted 2 Ethibond sutures circumferentially and
sized the valve to a 30 mm ring. The ring was parachuted into place and secured with core knots. 2 new sets of CV 4 [place] sutures were placed from the anterior lateral papillary muscle heads to the P1 and P2 interface. These were then tied
down after pressurized in the left ventricle. The valve did appear to be competent with a very minor leak towards the posterior medial aspect which was acceptable in her case given her complexity. The left atrial appendage was also verified be
free of any thrombus or debris preoperatively and found to be totally occlusive postoperatively with a 45 mm left atrial appendage clip. The ligament of Yaw was also divided prior to clipping. Once off cardiopulmonary bypass the valve had
only trace residual mitral valve insufficiency at the P2 P3 area likely at the cleft with no systolic anterior motion of the leaflets and a mean gradient of 2 mmHg across the valve. She was sinus bradycardia underneath and a and V wires were placed
and was ddI pacing at a rate of 80. Her index did suffer as expected and we started low-dose dobutamine. No blood products required. Her TR remained the same at moderate.
Specimen(s): Mitral valve cords, posterior leaflet, thickened.
Prosthesis:
1. 30 mm Smith physio 2 ring, serial #[id number]
2. 45 mm left atrial appendage clip, serial #[id number]
3. 2 pairs of CV 4 [place] cords
4. Multiple 5-0 Prolenes
Description of Procedure: The patient was taken to the operating room. Their identity and procedure to be performed were verified and they were positioned supine on the operating table. Induction via general anesthesia with endotracheal intubation
was performed and central venous access and arterial monitoring were inserted. A preoperative transesophageal echocardiogram was performed to assess cardiac function and valvular function. The patient was then prepped and draped from chin to feet in
a sterile fashion. A preoperative time-out was performed with all members of the team present. A midline chest incision was performed along with median sternotomy. The innominate vein was isolated. Full heparinization was given (a total of 60,000
units). We created a pericardial well. The aortic cannulation site was chosen where it was soft, pliable, and free of calcium. Cannulation was performed with an arterial cannula in the ascending aorta, angled metal tip cannular in the superior vena
cava and straight bendable cannula in the inferior vena cava. The arterial cannula line had an appropriate bounce and correlating pressures. Next, a root vent/antegrade cannula was inserted into the ascending aorta. The ACT was confirmed to be over
400 and retrograde autologous priming was performed before commencing cardiopulmonary bypass. The pulmonary artery was away from the aorta to facilitate a clamp site. Sondergaard�s groove was developed after creating the oblique sinus. The
aortic cross-clamp was placed after decreasing the flow on the bypass and mean arterial pressure. A total of 1.2L initial dose of antegrade Del-Nido cardioplegia solution was given and planned for re-dosing every 75 minutes as necessary. There was
rapid electro-mechanical arrest of the heart at 300cc of cardioplegia. The left ventricle was observed for distention on echocardiogram and manual palpation. Cold slush was placed into a lap on the RV and we systemically cooled to 34 degrees
centigrade. Once heart was fully arrested was rotated medially and the left atrial appendage was ligated flush to the base after dividing ligament of Yaw.
Carbon dioxide was used to flood the field. The mitral valve was access via the Sondergaard's groove followed by valve analysis. The mitral valve was repaired as described above. Deairing maneuvers were performed while the left atrium was closed
with a 3-0 prolene in a single layer.
Additional de-airing maneuvers were performed and temporary bipolar ventricular pacing wires were placed on the base of the right ventricle along with atrial pacing wires at the SVC right atrial junction. The patient was placed in a Trendelenburg
position and flows on bypass were lowered. The aortic cross clamp was removed and flows were slowly brought back up. The left atrial suture line was hemostatic. Transesophageal echocardiography revealed no evidence of systolic anterior motion and
ventricular function was normal. Once de-airing was satisfactory the left ventricular and root vents were removed. After verifying acceptable parameters, we initiated weaning from cardiopulmonary bypass. Once we were off cardiopulmonary bypass, the
venous cannulas was clamped and removed sequentially. A test dose of protamine was administered and the patient was monitored for any adverse reaction before resuming protamine. Once half of the protamine dose was delivered, pump suckers were turned
off and the systolic blood pressure was lowered for aortic decannulation. The aortic cannula was removed and purse strings were tied down. All cannulation sites were oversewn with a 4-0 prolene. The left atrial suture line was inspected and
hemostasis was confirmed. Mediastinal hemostasis was obtained. Two #24 Barry drains were placed within the pericardium. The sternum was approximated with 4 #7 single and 3 #8 double stainless steel wires. Fascia was approximated with #1 vicryl
suture. The subcutaneous, dermis and epidermis were closed in layers in a running fashion. The skin wound was cleansed and dressed.
All instrument, sponge, and needle counts were confirmed to be correct x 2 at the end of the operation. The patient was transferred to the cardiac intensive care unit in critical but stable condition.
I, Dr. Rd Tineo, was present, scrubbed for, and performed all critical elements of this procedure.
Rd Tineo MD, MS
Cardiothoracic Surgeon
[facility]
This dictation was created using the [employer] dictation system. Please excuse any grammatical, typographical, or 'sound alike' errors
[2025-03-04 11:38] LABS: Glucose - Point of Care 122 mg/dl (70-99)
[2025-03-04 11:46] LABS: B.E. 0.8 mmol/L; HCO3 26.6 mmol/L (21-28); O2 Saturation % 93.9 % (94-98); PCO2 46 mmHg (32-35); PO2 69 mmHg (83-108); Potassium 3.8 mMOL/L (3.5-5.1); Sodium 140 mMOL/L (136-145)
[2025-03-04] MEDS: WELLBUTRIN XL (24 hour extended release) PO (11:50)
[2025-03-04] MEDS: KCL 50 IV ×2 (11:50→12:59)
[2025-03-04] MEDS: DILAUDID 0.5 MG IV ×2 (11:50→15:43)
[2025-03-04] MEDS: WELLBUTRIN REGULAR RELEASE PO (11:50)
[2025-03-04] MEDS: NSS 500 IV (12:00)
[2025-03-04] MEDS: HYDREA PO (12:09)
--- NOTE | 2025-03-04 12:09 | PTCARENOTE ---
received pt from OR, sedated and palced on vent by BASKETBALL ASSEMBLER.. out with usual lines, CTx2 to - 20 suction. AV wires, VVI back up 40/10. NSR HR 70s with BBB, ekg chest xray done bedwside. labs drawn and sent. [place] draining blood tinged urine. Pulses
weakly palpable. CI 1.95 upon arrival. On 5 mcg dobut, insulin per protocol and precedex. MSI claire. will continue to monitor.
[2025-03-04] MEDS: KLONOPIN PO ×2 (12:10→17:41)
--- NOTE | 2025-03-04 12:11 | CON.INTV ---
Consultation
Consultation Request
Date/Time Consultation Requested: 03/04/2025 - 1134
Date/Time Consultation Performed: 03/04/2025 - 1202
Requesting Provider: Meghann Weinstein PA-C
Performing Provider: Dr. Cardoza
Reason for Consultation: MV-repair
Medical History
-
Chief Complaint: Mitral valve repair
History of Present Illness:
59-year-old female with extensive past medical history including MARIANNA on CPAP, former tobacco use, DM type II, PCV, von Willebrand disease, iliac artery thrombosis, history of cerebral hemorrhage, CKD, pulmonary hypertension, history of PE x 2
(thrombectomy with 2nd episode), hypertension and hyperlipidemia who presented for IV heparin bridge while awaiting mitral valve repair. Patient known to the cardiothoracic surgery service, with last visit on 02/[address] Tineo. She currently
lives in [place]. Recent transesophageal echo on 12/26/2024 showed thickened restrictive mitral leaflets with reduced excursion suggestive of rheumatic mitral valve disease. There was also severe central mitral regurgitation with severely
dilated left atrium. The PASP was estimated to be 50 mmHg. Of note, prior transthoracic echo in July 2024 also showed moderate�severe mitral regurgitation and PASP at that time was 68-73 mmHg. Patient's recent heart cath on 01/06/2025 showed
an elevated transpulmonary gradient with PVR 3.85 Wood units, and no obstructive coronary artery disease. Surgical repair of her mitral valve was discussed and she agreed to this procedure. Given that she is on Xarelto, it was recommended that she
be bridged off her NOAC with heparin prior to the procedure. Patient agreed to this and she presented to the hospital here at on 02/28/2025. Today, patient underwent radical mitral valve repair with a left atrial appendage exclusion. There were
no immediate complications, and the patient was transferred to the CVICU postoperatively for further care. Net Lead Architect/Pulmonary service is now consulted for additional management/recommendations.
When I saw the patient, she was resting in bed, intubated on SIMV at 14/500/40%/5, with PIP 34 cmH2O, VTe 535 cc and breathing at 14 breaths/min. Currently on dobutamine at 5 mcg/kg/min, insulin drip at 2.6 units/hr and Precedex at 0.3 mcg/kg/hr.
Heart rate currently 75, BP via left radial A-line: 113/69, PAP 53/28, CO/CI: 3.92/1.95, respectively, and saturating 97%. Mediastinal chest tubes x [address]
PMHx: Severe mitral regurgitation, restrictive lung disease, pulmonary nodule, MARIANNA on CPAP, insomnia, former tobacco smoker (quit 2021), history of PE on Xarelto with history of thrombectomy, hypertension, hyperlipidemia, DM type II, depression, von
Willebrand disease, POTS stimulator, right subdural hematoma from fall requiring neurosurgical intervention ([place] � 01/29/2021), iliac artery thrombosis, cerebral hemorrhage, chronic diastolic heart failure, history of pneumonia
PSHx: (2004), foot surgery, left heart catheterization, tonsillectomy, brain surgery (01/2021), thrombectomy due to PE (July 2023)
Past Medical History
Past Medical History: Other (Above as per HPI)
Past Surgical History: Other (Above as per)
Social History
Tobacco: Former Smoker (Quit in 2021)
Alcohol: None
Drug: None
Personal: Single
Living: Other ([facility])
Employment: Not Employed
Family History
Family History: CAD (Father), Cancer (Maternal uncle: Colon cancer), Hypertension (Father + mother) and Other (Migrated family history of diabetes + cardiac issues; sister: MS)
Allergies / Home Medications
Allergies
Allergy/AdvReac Type Severity Reaction Status Date / Time
No Known Allergies Allergy Verified 01/06/25 07:41
Home Medications
�Medication �Instructions �Recorded �Confirmed �Last Taken �Type
clonazepam 1 mg tablet 3 mg PO TID Mental Health/Anxiety 10/08/20 02/28/25 02/28/25 History
hydroxyurea 500 mg capsule 1,500 mg PO DAILY POLYCYTHEMIA VERA 10/08/20 02/28/25 02/28/25 History
rivaroxaban 20 mg tablet (Xarelto) 20 mg PO DAILY Blood clot 10/08/20 02/28/25 02/28/25 08:00 History
prevention/tx
atorvastatin 40 mg tablet 40 mg PO HS High cholesterol 01/12/21 02/28/25 02/26/25 History
bupropion HCl 150 mg 24 hr tablet, 150 mg PO DAILY mental health 06/15/22 02/28/25 02/26/25 History
extended release (Wellbutrin XL)
dapagliflozin propanediol 10 mg 10 mg PO DAILY Heart Failure 06/15/22 02/28/25 02/28/25 History
tablet (Farxiga)
metoprolol succinate 100 mg 50 mg (1/2 x 100 mg) PO DAILY #30 06/19/22 02/28/25 02/28/25 Rx
tablet,extended release 24 hr tabs
bupropion HCl 100 mg tablet 300 mg PO DAILY 12/26/24 02/28/25 02/26/25 History
cholecalciferol (vitamin D3) 10 20 mcg PO DAILY 12/26/24 02/28/25 02/28/25 History
mcg (400 unit) chewable tablet
(Vitamin D3)
famotidine 20 mg tablet 20 mg PO PRN PRN GERD 12/26/24 02/28/25 Unknown History
fluticasone propionate 50 1 spray intranasal DAILYPRN PRN as 12/26/24 02/28/25 01/04/25 08:00 History
mcg/actuation nasal patient needs it
spray,suspension
insulin glargine 100 unit/mL (3 10 unit SC BID 12/26/24 02/28/25 02/27/25 History
mL) subcutaneous pen (Basaglar
KwikPen U-100 Insulin)
magnesium 200 mg tablet 400 mg PO DAILY 12/26/24 02/28/25 12/26/24 06:00 History
melatonin 10 mg tablet 10 mg PO HS 12/26/24 02/28/25 02/26/25 History
pantoprazole 40 mg tablet,delayed 40 mg PO BID 12/26/24 02/28/25 02/28/25 History
release
quetiapine 100 mg tablet (Seroquel) 100 mg PO HS 12/26/24 02/28/25 02/26/25 History
semaglutide 0.25 mg or 0.5 mg (2 0.5 mg SC QWEEK 12/26/24 02/28/25 02/26/25 History
mg/3 mL) subcutaneous pen injector
(Ozempic)
zolpidem 12.5 mg tablet,extended 12.5 mg PO HS 12/26/24 02/28/25 02/26/25 History
release,multiphase
furosemide 40 mg tablet 60 mg (1.5 x 40 mg) PO DAILY Fluid 01/06/25 02/28/25 02/28/25 Rx
retention/Swelling #0 tabs
Review of Systems
-
Unable to Obtain full review of systems at this time due to: Patient Intubation
Vitals / Labs / Diagnostic Testing
Vital Signs
Temp Pulse Resp BP Pulse Ox
98.4 F 69 16 115/69 97
03/03/25 19:14 03/04/25 06:00 03/03/25 16:05 03/04/25 05:00 03/03/25 19:56
Laboratory Results
03/03/25 03/03/25 03/04/25
13:08 20:35 03:18
APTT 66.1 H 83.6 H 98.1 H
pH
pCO2
pO2
HCO3
O2 Delivery Level
03/04/25
11:33
APTT
pH 7.37
pCO2 46 H
pO2 69 L
HCO3 26.6
O2 Delivery Level
Diagnostic Testing:
Physical Exam
-
HEENT: Normocephalic, Anicteric and Other (ETT in place)
Cardiovascular: S1/S2, Murmur (KALIA heard diffusely) and Peripheral Edema (negative)
Respiratory: Wheeze (negative), Rales (negative), Rhonchi (negative), Non-Labored Respirations, Other (Mechanical breath sounds heard bilaterally) and Other (Mediastinal chest tubes x [address])
GI: Soft, Distended (Abdominal obesity), Non Tender and Normal Bowel Sounds
Neurology: Tremors (negative) and Other (Sedated)
Skin: Warm and Dry
General: Respiratory Distress (negative), Comfortable, Fever (negative) and Chills (negative)
Assessment
-
Assessment: 59-year-old female with extensive past medical history including MARIANNA on CPAP, former tobacco use, DM type II, PCV, von Willebrand disease, iliac artery thrombosis, history of cerebral hemorrhage, CKD, pulmonary hypertension, history of
PE x 2 (thrombectomy with 2nd episode), hypertension and hyperlipidemia who presented for IV heparin bridge while awaiting mitral valve repair. Patient known to the cardiothoracic surgery service, with last visit on 02/[address] Tineo. She
currently lives [place]. Recent transesophageal echo on 12/26/2024 showed thickened restrictive mitral leaflets with reduced excursion suggestive of rheumatic mitral valve disease. There was also severe central mitral regurgitation with
severely dilated left atrium. The PASP was estimated to be 50 mmHg. Of note, prior transthoracic echo in July 2024 also showed moderate�severe mitral regurgitation and PASP at that time was 68-73 mmHg. Patient's recent heart cath on 01/06/2025
showed an elevated transpulmonary gradient with PVR 3.85 Wood units, and no obstructive coronary artery disease. Surgical repair of her mitral valve was discussed and she agreed to this procedure. Given that she is on Xarelto, it was recommended
that she be bridged off her NOAC with heparin prior to the procedure. Patient agreed to this and she presented to the hospital here at on 02/28/2025. On 03/04/2025, she underwent radical mitral valve repair with a left atrial appendage exclusion.
There were no immediate complications, and the patient was transferred to the CVICU postoperatively for further care. Net Lead Architect/Pulmonary service is now consulted for additional management/recommendations.
Chronic conditions BANQUET SERVER: Severe mitral regurgitation, restrictive lung disease, pulmonary nodule, MARIANNA on CPAP, insomnia, former tobacco smoker (quit 2021), history of PE on Xarelto with history of thrombectomy, hypertension, hyperlipidemia, DM type
II, depression, von Willebrand disease, POTS stimulator, right subdural hematoma from fall requiring neurosurgical intervention ([place] � 01/29/2021), iliac artery thrombosis, cerebral hemorrhage, chronic diastolic heart failure, history of pneumonia
Impression:
#Severe mitral valve insufficiency s/p radical mitral valve repair + left atrial appendage exclusion (POD #0)
#Acute respiratory failure with hypercapnia while on mechanical ventilation
#CKD
#Hypertension
#Hyperlipidemia
#JAK2 gene mutation with coagulopathy
#Von Willebrand's disease
#DM type II
#History of PCV
#PTSD
#History of CVA + pulmonary embolism
Plan:
Ventilator settings reviewed
FiO2 will be weaned to maintain SpO2 >90-94%
Minute ventilation will be adjusted
Arterial blood gases will be monitored
Spontaneous breathing trial will be attempted with hopeful extubation after anesthesia/sedation wear off
prn nebulized bronchodilators - not currently bronchospastic
Pulmonary artery catheter parameters will be followed
Pressors/antihypertensive/inotropes/diuretics will be provided as needed
Maintain MAP>65
Replete electrolytes with K>4, Mg>2
Monitor chest tube output (mediastinal chest tubes x2)
Monitor hemoglobin
Monitor platelet count and coags
Transfuse blood products as needed to maintain Hb>7g/dL, plt>50k (given post-operative status)
CT surgery managing chest tubes
Monitor blood sugar to maintain euglycemia with goal BG 110-140
Insulin drip per protocol
Aspiration precautions
VAP prevention protocol
DVT prophylaxis
Early nutrition
Early mobilization
Critical care statement: A total of 46 minutes of critical care time was provided for this patient today. This includes management of ventilator, spontaneous breathing trial, arterial blood gases, pressors, of unstable vital signs, evaluation of the
patient at bedside, reviewing the patient's pertinent medical records including radiographs, microbiology, laboratory evaluations, and discussion with primary team and critical care nursing.
[2025-03-04 12:16] LABS: Hematocrit 37.7 % (37.0-47.0); Hemoglobin 12.6 g/dL (12.0-16.0); Mean Corp Hgb Conc. 33.4 g/dL (33.0-37.0); Mean Corpuscular Volume 119.3 fL (81.0-99.0); Platelet Count 175 10^3/uL (130-400); Red Cell Dist. Width 17.8 % (11.5-14.5)
[2025-03-04 12:22] LABS: INR 1.40; PT 17.4 Sec (11.4-14.6)
[2025-03-04 12:23] LABS: APTT 33.3 Sec (23.4-35.0)
[2025-03-04 12:46] LABS: Glucose - Point of Care 127 mg/dl (70-99)
[2025-03-04 12:52] LABS: Blood Urea Nitrogen 20 mg/dl (7-17); Calcium 8.8 mg/dl (8.4-10.2); Carbon Dioxide 29 mmol/L (22-30); Chloride 111 mmol/L (98-107); Estimated Creatinine Clearance 75 ml/min; Glucose 125 mg/dl (70-99); Magnesium 2.6 mg/dl (1.6-2.3); Potassium 4.1 mmol/L (3.5-5.1); Sodium 143 mmol/L (135-145); eGFR > 60.00
--- NOTE | 2025-03-04 12:52 | W.PN.CARDCBS ---
Addendum entered and electronically signed by Tee Goode MD 03/04/25 14:22:
I saw and examined the patient.
The MEDICAL OFFICE SPECIALIST or PA's note was reviewed and I agree with the note.
Comment: General: Sedated and intubated
Neck: Supple, no JVD, HJR, carotids +2 B/L, no bruits bilaterally.
Heart: Non displaced PMI, RRR, no murmurs, No S3, S4, no rubs.
Lungs: Scattered rhonchi
Extremities: No clubbing, cyanosis or edema bilaterally.
Neuro: Sedate
Patient seen immediately postop status post mitral valve repair. Remains stable from cardiology viewpoint at the present time. On dobutamine 5 mcg. remains intubated and sedated. Hopefully extubate later today.
Original Note:
Today's Communication / Plan
-
Anticipated extubation this afternoon
Wean dobutamine as cardiac index tolerates
Follow hemoglobin and electrolytes
Impression / Plan
-
PCP: Holli Gunn
Primary Contract Graphic Designer: Dr. Ayers
Impression:
Elective admission 03/04/2025 Severe mitral valve insufficiency, mixed pathology with type IIIa tethering of the posterior leaflet due to thickened cords of P1 and P2
s/p Radical mitral valve repair [resection of P1 P2 extremely thickened cords that was tethering down the posterior leaflet, placement of new cords x 2 the posterior leaflet, cleft closure at P1 P2 and P2 P3 as well as A2 A3, 30 mm annuloplasty
ring] (03/04/2025)
Left atrial appendage exclusion 45 mm (03/04/2025)
Postop right bundle branch block
Chronic heart failure with preserved EF
Nonobstructive coronary artery disease
Type 2 diabetes on insulin
Hypertension
Hyperlipidemia
History of von Willebrand's disease
Polycythemia vera/JAK2 mutation
History of CVA
History of pulmonary embolism/DVT, on chronic Xarelto 10mg daily
History of subdural hematoma status post craniotomy at [place]
Severe obstructive sleep apnea, noncompliant with CPAP
Pulmonary nodules with restrictive/obstructive lung disease
Tobacco use
Major depressive disorder
Chronic insomnia
GERD
Obesity
Left and right heart catheterization 01/06/2025: Nonobstructive coronary artery disease. HEMODYNAMICS : (mmHg) RA (m) : 16; RV (s/d,m) : 63/11, 60; PA (s/d, m) : 63/27, 42; PCWP (m) : 20; PA saturation: 65.7% on room air; AO saturation: 84.9% on
room air; RA saturation: 66.5% on room air; Cardiac Output : 5.20 L/min by Kavon calculate; Cardiac Index : 2.58 L/min/m-2 by Kavon calculation; Systemic vascular resistance: 1277 dsc^(-5); Pulmonary vascular resistance: 3.85 curtis unit; Heart rate:
75 bpm; AO (s/d) : 146/80; LVEDP : 24; No significant gradient across the aortic valve to suggest aortic stenosis.
Post surgery SHAVON 03/04/2025: Mitral valve repair with 30 mm annuloplasty ring into neocords as well as cleft closure. With ring well-seated with no paravalvular leak and trivial residual mitral regurgitation. Mean gradient 2. Status post left
atrial appendage occlusion with clip well-seated no flow through the left atrial appendage remnant. Normal LV size and function. Mild to moderate TR.
SHAVON 12/26/2024: EF 60 to 65%. Mild concentric LVH. Thickened restricted mitral leaflets with reduced excursion suggestive of��rheumatic mitral valve disease. Mitral sclerosis without stenosis; mean mitral�valve gradient 3 mmHg.��Severe central mitral
regurgitation with severely dilated left atrium.���Moderate tricuspid regurgitation. Estimated pulmonary artery pressure is 50��mmHg assuming right atrial pressure of 3 mmHg.
Echo 08/12/2024: EF 69%. Moderate concentric LVH. Stage II DD. Moderate to severe MR with markedly dilated left atrium. Dilated right heart with preserved RV systolic function. Moderate tricuspid regurgitation with PAP 68 to 73 mmHg
ECHO 10/16/20: EF 60-65%, mod cLVH, mild MR, mild TR, PAP 45mmHg
Plan:
-Elective admission for severe mitral valve insufficiency status post radical mitral valve repair with 30 mm annuloplasty ring and left atrial appendage exclusion 45 mm 03/04/2025
- Patient seen and examined immediately postoperatively. Currently intubated and sedated. Wean sedation with anticipated extubation later today
- Patient currently requiring dobutamine 5 mcg/kg/min. Wean as tolerated
- Postop chest x-ray with new mild elevation of right hemidiaphragm and mild prominence of central vasculature likely due to limited inspiration.
- Postop hemoglobin stable at 12.6 with stable renal function and electrolytes
- Post op ECG sinus rhythm with right bundle branch block. This is new finding postoperatively
- Usual post op management
HPI 03/04/2025:
This is a 59-year-old female who has a complex list of comorbidities including hypercoagulable disorder that resulted in a previous CVA and pulmonary embolism secondary to hypercoagulable disorder and polycythemia vera. She also has mixed pathology
mitral valve disease and also complex social history. She was offered mitral valve repair with a higher than average likelihood of replacement given the valve pathology. Due to her history of CVAs and coagulopathy, her left atrial appendage will
be ligated at time of surgery.
Progress Note - Contract Graphic Designer
Subjective
Date of Service: March 04, 2025
Patient seen and examined immediately postop mitral valve repair and left atrial appendage clipping. Remains intubated and sedated
Objective
Labs:
03/04/25 11:33
03/04/25 11:33
Labs
Hgb 12.6 g/dL (12.0-16.0) 03/04/25 11:33
Hct 37.7 % (37.0-47.0) 03/04/25 11:33
Plt Count 175 10^3/uL (130-400) D 03/04/25 11:33
PT 17.4 Sec (11.4-14.6) H 03/04/25 11:36
INR 1.40 03/04/25 11:36
APTT 33.3 Sec (23.4-35.0) 03/04/25 11:36
Sodium 143 mmol/L (135-145) 03/04/25 11:33
Potassium 4.1 mmol/L (3.5-5.1) 03/04/25 11:33
BUN 20 mg/dl (7-17) H 03/04/25 11:33
Creatinine 0.9 mg/dL (0.6-1.0) 03/04/25 11:33
Glucose 125 mg/dl (70-99) H 03/04/25 11:33
Vital Signs and I&O:
Vital Signs
Temp Pulse Resp BP Pulse Ox
96 F L 69 16 115/69 96
03/04/25 12:00 03/04/25 06:00 03/03/25 16:05 03/04/25 05:00 03/04/25 12:00
Vital Signs
Temp Pulse Resp BP Pulse Ox
96 F L 69 16 115/69 96
03/04/25 12:00 03/04/25 06:00 03/03/25 16:05 03/04/25 05:00 03/04/25 12:00
Intake & Output
03/02/25 03/03/25 03/04/25 03/05/25
06:59 06:59 06:59 06:59
Intake Total 240 / 240 133 / 133 2163 / 2163
Output Total 1100 / 1100 2750 / 2750 4700 / 4700
Balance -860 / -860 -2617 / -2617 -2537 / -2537
Physical Exam
Physical Exam
GEN: Intubated/sedated
HEENT: supple, anicteric, mmm
LUNGS: CTA anteriorly, no wheezes/rales
CV: Reg, S1/S2, no murmur, rub or gallop
ABD: soft, BS+, NT/ND
EXT: No edema, clubbing or cyanosis
NEURO: Unable to assess this patient currently intubated/sedated
SKIN: No rash
--- NOTE | 2025-03-04 13:22 | PN.DE.MGMTRT ---
Insulin Management
- -
03/04/2025 Diabetes Management Consult
Patient admitted 02/28 for severe mitral valve regurgitation, work up for OR. PMH PE, MARIANNA w CPAP, HTN, diabetes, HLD, Von Willebrand disease, JAK2 polycythemia vera, subdural hematoma, cerebral hemorrhage, CKD II, mitral valve regurgitation, anxiety,
depression, suicidal ideation and attempt, PTSD. Prior to admission was taking Farxiga 10 mg daily, Lantus 10 units BID and Ozempic 5 mg weekly. A1C is 6.1%, cr 1.1, eGFR 57.17,
Patient is intubated on vent sedated s/p OR today for mitral valve repair surgery.
Patient currently on critical care glycemic protocol receiving 2.6 units of insulin per hour. Glucose 127.
Will continue insulin infusion and reassess tomorrow.
Discussed with nurse.
Will follow.
Diabetes History
- -
Type of Diabetes: 2
Pre-Admission Diabetes Regimen
03/04/25 03/04/25
03:18 11:33
Creatinine 1.1 H 0.9
Lab Results
Hemoglobin A1c 6.1 % (4.0-5.6) H 03/01/25 06:04
Insulin Pump Settings
IP Diabetes Regimen
03/03/25 03/04/25 03/04/25
17:18 03:18 11:30
Glucose 113 H
POC Glucose 140 H 122 H
03/04/25 03/04/25
11:33 12:45
Glucose 125 H
POC Glucose 127 H
Meal type: Dinner
Amount consumed: 100%
Patient Education
[2025-03-04 14:21] LABS: Glucose - Point of Care 145 mg/dl (70-99)
--- NOTE | 2025-03-04 14:30 | CM ---
Chart reviewed. Patient is in the OR today. Patient is independent of ADLS, staying with a friend until 03/26 in a mobile home 1 story, 4 TRICE, ambulates with a SPC. Plan is for the patient to return to her friends trailer at [facility], [address]
[place], [place]. Plan is for the patient to return to her friends trailer with CT Transitional RN. CM to follow
[2025-03-04] MEDS: TYLENOL PO ×2 (15:43→21:48)
[2025-03-04] MEDS: OFIRMEV 100 IV (15:53)
[2025-03-04 15:56] LABS: Glucose - Point of Care 135 mg/dl (70-99)
[2025-03-04] MEDS: NEURONTIN PO (16:36)
[2025-03-04] MEDS: PACERONE PO (16:37)
[2025-03-04] MEDS: LASIX PO (16:38)
[2025-03-04] MEDS: LANTUS SC (16:38)
[2025-03-04] MEDS: MAGNESIUM OXIDE PO (16:38)
[2025-03-04] MEDS: PROTONIX PO (16:39)
[2025-03-04 16:45] LABS: Glucose - Point of Care 124 mg/dl (70-99)
[2025-03-04 16:47] LABS: B.E. 0.1 mmol/L; HCO3 26.9 mmol/L (21-28); O2 Saturation % 99.0 % (94-98); PCO2 51 mmHg (32-35); PO2 126 mmHg (83-108); Potassium 5.1 mMOL/L (3.5-5.1)
[2025-03-04 16:51] LABS: Hematocrit 41.7 % (37.0-47.0); Hemoglobin 13.4 g/dL (12.0-16.0)
[2025-03-04] MEDS: TOPROL XL PO (17:42)
[2025-03-04] MEDS: VITAMIN D3 (cholecalciferol) PO (17:42)
[2025-03-04] MEDS: ZOFRAN 4 MG IV (17:52)
[2025-03-04 17:53] LABS: Glucose - Point of Care 124 mg/dl (70-99)
[2025-03-04 17:55] LABS: B.E. - POC 0.9 mmol/L; Blood Urea Nitrogen - POC 20 mg/dl (3-120); Chloride - POC 111 mmol/L (96-111); Creatinine - POC 1.10 mg/dl (0.3-1.0); Glucose - POC 126 mg/dl (70-99); HCO3 - POC 28 mmol/L (21-28); Hematocrit - POC 47 % PCV (37-47); Hemodilution- POC No; Hemoglobin Calculated - POC 15.9; Ionized Calcium - POC 1.31 mmol/L (1.15-1.33); Lactate - POC 1.29 mmol/L (0.36-0.75); O2 Saturation %Calculated-POC 95.3 % (94-98); PCO2 - POC 55 mmHg (35-48); PO2 - POC 85 mmHg (83-108); Potassium - POC 5.0 mmol/L (3.5-5.1); Sodium - POC 149 mmol/L (136-145); Specimen Type - POC Arterial; pH - POC 7.32 (7.35-7.45)
--- NOTE | 2025-03-04 17:58 | PTCARENOTE ---
extubated to 6L nc with resp therapist at bedside. pulse ox 95%. resp rate low. placed on bipap.
[2025-03-04] MEDS: ANCEF 5 IV (18:07)
[2025-03-04] MEDS: DILAUDID 0.25 MG IV (18:09)
--- NOTE | 2025-03-04 18:30 | RESPNOTE ---
Respiratory: patient was extubated 1800 without incident no stridor.
[2025-03-04 18:50] LABS: B.E. - POC -0.2 mmol/L; Blood Urea Nitrogen - POC 19 mg/dl (3-120); Chloride - POC 113 mmol/L (96-111); Creatinine - POC 1.10 mg/dl (0.3-1.0); Glucose - POC 118 mg/dl (70-99); HCO3 - POC 27 mmol/L (21-28); Hematocrit - POC 43 % PCV (37-47); Hemodilution- POC No; Hemoglobin Calculated - POC 14.8; Ionized Calcium - POC 1.28 mmol/L (1.15-1.33); Lactate - POC 1.17 mmol/L (0.36-0.75); O2 Saturation %Calculated-POC 94.8 % (94-98); PCO2 - POC 50 mmHg (35-48); PO2 - POC 81 mmHg (83-108); Potassium - POC 4.6 mmol/L (3.5-5.1); Sodium - POC 148 mmol/L (136-145); Specimen Type - POC Arterial; pH - POC 7.33 (7.35-7.45)
[2025-03-04] MEDS: LOW STRENGTH ASPIRIN 81 MG PO (19:56)
[2025-03-04 19:59] LABS: Glucose - Point of Care 127 mg/dl (70-99)
--- NOTE | 2025-03-04 20:00 | PTCARENOTE ---
Assumed care of patient at 1900. Patient resting s/P MVR procedure, on bipap, levo, Dubutamine, and Insulin drips. Follows commands, moves all ectermities, remains drowsy, states pain is 7/10 sternal site, pRN medicaion given and sucessful at
managing pain. Normal sinus on monitor, has AV wire to pacer box, CEMENT KILN OPERATOR liable on -6- 8 of levo, trace edmema in bilateral lower extermities. Lungs sound clear and diminished at bases bilaterally, shollow breathing. Bowel sounds present and
hypoactive, tolerating PO water at this time. sternal incision clean dry and intact , open to air.
[2025-03-04 20:32] LABS: B.E. -0.3 mmol/L; HCO3 25.9 mmol/L (21-28); O2 Saturation % 96.7 % (94-98); PCO2 47 mmHg (32-35); PO2 78 mmHg (83-108); Potassium 4.9 mMOL/L (3.5-5.1)
[2025-03-04] MEDS: TORADOL 15 MG IV (20:34)
[2025-03-04] MEDS: SENOKOT PO (20:36)
[2025-03-04 20:39] LABS: Platelet Count 289 10^3/uL (130-400)
[2025-03-04 21:04] LABS: Glucose - Point of Care 99 mg/dl (70-99)
[2025-03-04] MEDS: NEURONTIN 100 MG PO (22:05)
[2025-03-04] MEDS: PACERONE 200 MG PO (22:05)
[2025-03-04] MEDS: KLONOPIN 1 MG PO (22:06)
[2025-03-04] MEDS: LIPITOR 40 MG PO (22:06)
[2025-03-04] MEDS: SEROQUEL 100 MG PO (22:06)
[2025-03-04 22:13] LABS: Glucose - Point of Care 113 mg/dl (70-99)
[2025-03-04 23:02] LABS: B.E. 0.1 mmol/L; HCO3 26.0 mmol/L (21-28); O2 Saturation % 96.7 % (94-98); PCO2 46 mmHg (32-35); PO2 77 mmHg (83-108); Potassium 5.1 mMOL/L (3.5-5.1)
[2025-03-04] MEDS: FLEXBUMIN 50 IV (23:09)
[2025-03-04 23:17] LABS: Glucose - Point of Care 131 mg/dl (70-99)
[2025-03-04] MEDS: TYLENOL 975 MG PO (23:33)
--- NOTE | 2025-03-04 23:59 | PTCARENOTE ---
patient resting comfrtablily, PO tyelenol given, patient bathed with CHG wipes and turn to prevent prssure injuries. Strong non productive cough, on Levo, onsulin and dubut drips. CTx2 draining red output. Livingston in place clear yellow output.
[2025-03-05] VITALS (34 sets, daily range): BP systolic 81–122; BP diastolic 48–75; PULSE 80; O2SAT 97–98; BMI 36.7
[2025-03-05 00:20] LABS: Glucose - Point of Care 113 mg/dl (70-99)
[2025-03-05 01:16] LABS: B.E. -1.5 mmol/L; HCO3 24.3 mmol/L (21-28); O2 Saturation % 99.4 % (94-98); PCO2 44 mmHg (32-35); PO2 158 mmHg (83-108); Potassium 4.5 mMOL/L (3.5-5.1)
[2025-03-05] MEDS: LEVOPHED 250 IV ×2 (01:19→10:09)
[2025-03-05] MEDS: ANCEF 5 IV ×2 (01:21→10:10)
[2025-03-05 01:57] LABS: Glucose - Point of Care 94 mg/dl (70-99)
[2025-03-05] MEDS: FLEXERIL 5 MG PO ×3 (03:35→22:20)
[2025-03-05] MEDS: ROXICODONE 2.5 MG PO (03:35)
--- NOTE | 2025-03-05 03:39 | PTCARENOTE ---
patient more alert and oriented, taken off bipap and placed on 6 L NC at 0315am. given 2.5 of courtney for 8/10 pain, SpO2 100% vital signs stable,
[2025-03-05 04:12] LABS: Glucose - Point of Care 131 mg/dl (70-99)
[2025-03-05 04:19] LABS: B.E. -1.5 mmol/L; HCO3 24.8 mmol/L (21-28); O2 Saturation % 98.0 % (94-98); PCO2 47 mmHg (32-35); PO2 89 mmHg (83-108); Potassium 4.8 mMOL/L (3.5-5.1)
[2025-03-05] MEDS: ROXICODONE 5 MG PO ×4 (04:19→20:14)
[2025-03-05 04:22] LABS: Hematocrit 38.8 % (37.0-47.0); Hemoglobin 12.3 g/dL (12.0-16.0); Mean Corp Hgb Conc. 31.7 g/dL (33.0-37.0); Mean Corpuscular Volume 121.6 fL (81.0-99.0); Platelet Count 283 10^3/uL (130-400); Red Cell Dist. Width 19.7 % (11.5-14.5)
[2025-03-05 04:47] LABS: Blood Urea Nitrogen 22 mg/dl (7-17); Calcium 8.9 mg/dl (8.4-10.2); Carbon Dioxide 27 mmol/L (22-30); Chloride 110 mmol/L (98-107); Estimated Creatinine Clearance 63 ml/min; Glucose 139 mg/dl (70-99); Magnesium 2.2 mg/dl (1.6-2.3); Potassium 5.2 mmol/L (3.5-5.1); Sodium 138 mmol/L (135-145); eGFR 57.17
[2025-03-05] MEDS: DOBUTREX 500 MG 250 IV (05:01)
[2025-03-05] MEDS: TYLENOL 975 MG PO ×3 (05:55→20:13)
[2025-03-05 06:08] LABS: Glucose - Point of Care 101 mg/dl (70-99)
--- NOTE | 2025-03-05 06:40 | W.PN.CT ---
Today's Communication / Plan
-
-pod #1
-mVO2 is 66.3, CI 1.99, CO 4.0, SVR 1139. Drips: Dobut 5, Levo 6, Insulin
-CT outputs: 2 meds 145/265 in 12/24 hrs
-got 500 LR postop, started on 25% Albumin x3
-transitioned from bipap to 6L NC at 3:30 am. ABG 7.33/47/89/24.8/98.0. Check ABG with K at 9am
-follow Cr - 1.1 today (1.0-1.2 preop)
-hold BB while on Dobut
-wean off Dobut and Levo as tolerated
-wean off bipap
-maintain swan, Cordis
-maintain pw
-maintain Livingston for critical I/O (hx CKD, low UO)
-continue insulin
-encourage IS, OOB
Assessment / Plan
-
Impression:
- s/p Radical mitral valve repair [resection of P1 P2 extremely thickened cords that was tethering down the posterior leaflet, placement of new cords x 2 the posterior leaflet, cleft closure at P1 P2 and P2 P3 as well as A2 A3, 30 mm annuloplasty
ring]; Left atrial appendage exclusion with [address] Tineo on 03/04/25, pod #1
- Intraop SHAVON: LVEF preop was 55% with no significant wma. Following surgery, her EF remained the same at 60% with no new regional wall motion abnormalities. She had a moderate degree of tricuspid valve insufficiency preop secondary to some
annular dilatation. She had severe mitral valve insufficiency. Once off cardiopulmonary bypass the valve had only trace residual mitral valve insufficiency at the P2 P3 area likely at the cleft with no systolic anterior motion of the leaflets and
a mean gradient of 2 mmHg across the valve. Her TR remained the same at moderate.
- Severe mitral valve insufficiency, mixed pathology with type IIIa tethering of the posterior leaflet due to thickened cords of P1 and P2
- electively admitted on 02/28/2025 for Xarelto to IV heparin conversion, preadmission testing prior to mitral valve repair for severe mitral regurgitation, scheduled for with Dr. Tineo.
- JAK2 polycythemia vera with history of hypercoagulable complications requiring chronic daily DOAC
- Pulmonary embolism 2018 & 2023 w/thrombectomy
- Obstructive sleep apnea with CPAP use
- Hypertension
- Tobacco dependence
- Type 2 diabetes
- Class 1 obesity (BMI 34)
- Depression
- Hyperlipidemia
- Von Willebrand disease
- Polycythemia vera
- Right subdural hematoma from fall requiring neurosurgical intervention (01/29/2021)
- Iliac artery thrombosis
- Cerebral hemorrhage
- Chronic kidney disease stage II (Cr 1.2 preop)
- Pulmonary hypertension
- Hard of hearing
- 2004
- Tonsillectomy
- Right L4-L5 IL�LAUREN (02/01/2022)
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
- Acute postop pulmonary insufficiency/atelectasis
- Acute postop hypovolemia with subsequent hypervolemia
Discussed patient care with: Nursing and Care Team
Subjective
-
Date of Service: March 05, 2025
Objective Data
-
PT 17.4 Sec (11.4-14.6) H 03/04/25 11:36
INR 1.40 03/04/25 11:36
APTT 33.3 Sec (23.4-35.0) 03/04/25 11:36
Vital Signs
Vital Signs
Temp Pulse Resp BP Pulse Ox
98.7 F 74 18 110/61 99
03/05/25 00:00 03/05/25 00:00 03/04/25 23:00 03/05/25 00:00 03/05/25 00:00
CT Intake/Output/Weight
03/04/25 03/04/25 03/05/25
06:59 18:59 06:59
Intake Total 483 / 2163 497.6 / 1309.3 811.7 / 1309.3
Output Total 1750 / 4700 930 / 1155 225 / 1155
Balance -1267 / -2537 -432.4 / 154.3 586.7 / 154.3
SaO2: 99
Physical Exam
-
General: Awake and AOx3
Cardiovascular: Regular rate & rhythm, No Murmurs and Rub
Respiratory: Decreased Breath Sounds
Sternum: Stable
Incision: Clean, Dry and Intact
Extremities: Other (trace edema b/l, 1+DPs b/l)
Abdomen: soft, nontender, mildly distended, +decreased bowel sounds
Data Reviewed
-
Lab Results: Results Reviewed
Medications: Active Meds Reviewed
Chest X-Ray: Report Reviewed and Image Reviewed
ECG: Report Reviewed and Image Reviewed
--- NOTE | 2025-03-05 07:54 | PN.DE.MGMTRT ---
Insulin Management
- -
03/05/2025: Diabetes Management follow up
Patient admitted 02/28 for severe mitral valve regurgitation, work up for OR. PMH PE, MARIANNA w CPAP, HTN, diabetes, HLD, Von Willebrand disease, JAK2 polycythemia vera, subdural hematoma, cerebral hemorrhage, CKD II, mitral valve regurgitation, anxiety,
depression, suicidal ideation and attempt, PTSD. Prior to admission was taking Farxiga 10 mg daily, Basaglar 10 units BID and Ozempic 5mg weekly. Pt states was taking Lantus but insurance switched it to Basaglar and that her A1C went from ~5 to 6
range 2 months after the switch, so she doesn't think the Basaglar was the right type of insulin for her. Explained to pt that they are very similar long-acting insulins with the same active ingredient, but Basaglar may be preferred by her insurance
due to cost. pt was asking if it's possible to convert her back to Lantus at discharge, encouraged her to speak to her insurance and PCP. A1C is 6.1%, Cr 1.1, eGFR 57.17,
Patient awake, alert, oriented, sitting up in bed, offers no complaints, able to discuss diabetes care plan.
POD # 1 s/p mitral valve repair, doing well. Remains on critical care glycemic protocol
Glucose range 82 to 131, receiving 0.3 to 4 units of insulin per hour.
Will continue insulin infusion and reassess for readiness to transition to SQ insulin tomorrow.
Discussed with nurse. Will cont to follow.
Diabetes History
- -
Type of Diabetes: 2 requiring insulin
Pre-Admission Diabetes Regimen
03/04/25 03/05/25
11:33 03:59
Creatinine 0.9 1.1 H
Lab Results
Hemoglobin A1c 6.1 % (4.0-5.6) H 03/01/25 06:04
Insulin Pump Settings
IP Diabetes Regimen
03/04/25 03/04/25 03/04/25
11:30 11:33 12:45
Glucose 125 H
POC Glucose 122 H 127 H
03/04/25 03/04/25 03/04/25
14:20 15:54 16:36
Glucose
POC Glucose 145 H 135 H 124 H
03/04/25 03/04/25 03/04/25
17:51 19:59 20:58
Glucose
POC Glucose 124 H 127 H 99
03/04/25 03/04/25 03/05/25
22:12 23:15 00:19
Glucose
POC Glucose 113 H 131 H 113 H
03/05/25 03/05/25 03/05/25
01:55 03:59 04:11
Glucose 139 H
POC Glucose 94 131 H
03/05/25
06:06
Glucose
POC Glucose 101 H
Meal type: Dinner
Amount consumed: 0
Patient Education
--- NOTE | 2025-03-05 08:12 | W.PN.INTV ---
Today's Communication / Plan
Recommendations
Continue with dobutamine + Levophed, weaning down as tolerated while trending MVO2 with goal >65
Insulin drip with goal BG 110�140
Pain control
Encourage incentive spirometer
Continue with her BiPAP with sleep
Trend blood gas
Removal of chest tubes per CT surgery team
Conference Interpreter service will continue to follow along while patient remains in the CVICU.
Assessment
-
Assessment: 59-year-old female with extensive past medical history including MARIANNA on CPAP, former tobacco use, DM type II, PCV, von Willebrand disease, iliac artery thrombosis, history of cerebral hemorrhage, CKD, pulmonary hypertension, history of
PE x 2 (thrombectomy with 2nd episode), hypertension and hyperlipidemia who presented for IV heparin bridge while awaiting mitral valve repair. Patient known to the cardiothoracic surgery service, with last visit on 02/[address] Tineo. She
currently lives in a halfway. Recent transesophageal echo on 12/26/2024 showed thickened restrictive mitral leaflets with reduced excursion suggestive of rheumatic mitral valve disease. There was also severe central mitral regurgitation with
severely dilated left atrium. The PASP was estimated to be 50 mmHg. Of note, prior transthoracic echo in July 2024 also showed moderate�severe mitral regurgitation and PASP at that time was 68-73 mmHg. Patient's recent heart cath on 01/06/2025
showed an elevated transpulmonary gradient with PVR 3.85 Wood units, and no obstructive coronary artery disease. Surgical repair of her mitral valve was discussed and she agreed to this procedure. Given that she is on Xarelto, it was recommended
that she be bridged off her NOAC with heparin prior to the procedure. Patient agreed to this and she presented to the hospital here at on 02/28/2025. On 03/04/2025, she underwent radical mitral valve repair with a left atrial appendage exclusion.
There were no immediate complications, and the patient was transferred to the CVICU postoperatively for further care. Conference Interpreter/Pulmonary service is now consulted for additional management/recommendations.
Chronic conditions HOSPITAL FELLOW: Severe mitral regurgitation, restrictive lung disease, pulmonary nodule, MARIANNA on CPAP, insomnia, former tobacco smoker (quit 2021), history of PE on Xarelto with history of thrombectomy, hypertension, hyperlipidemia, DM type
II, depression, von Willebrand disease, POTS stimulator, right subdural hematoma from fall requiring neurosurgical intervention ([place] � 01/29/2021), iliac artery thrombosis, cerebral hemorrhage, chronic diastolic heart failure, history of pneumonia
Impression:
#Severe mitral valve insufficiency s/p radical mitral valve repair + left atrial appendage exclusion (POD #1)
#Acute respiratory failure with hypercapnia while on mechanical ventilation - pt now extubated and pCO2 improved
#CKD
#Hypertension
#Hyperlipidemia
#JAK2 gene mutation with coagulopathy
#Von Willebrand's disease
#DM type II
#History of PCV
#PTSD
#History of CVA + pulmonary embolism
Plan:
Patient was successfully extubated on 03/04/2025 and transitioned to BiPAP at 12/5cmH2O bled with 3L/min
She has her own machine from home at bedside, and she should continue to use this while hospitalized
Continue with supplemental oxygen as needed and maintain SpO2 >90-94%
Trend blood gas at least once daily to assure pCO2 and pH remain stable
prn nebulized bronchodilators - not currently bronchospastic
Pulmonary artery catheter parameters will be followed
Pressors/antihypertensive/inotropes/diuretics will be provided as needed
Maintain MAP>65
Replete electrolytes with K>4, Mg>2
Diurese as needed and closely monitor I/O; CXR appears to show interstitial edema
Monitor chest tube output (mediastinal chest tubes x2)
Monitor hemoglobin
Monitor platelet count and coags
Transfuse blood products as needed to maintain Hb>7g/dL, plt>50k (given post-operative status)
CT surgery managing chest tubes
Monitor blood sugar to maintain euglycemia with goal BG 110-140
Insulin drip per protocol
Aspiration precautions
DVT prophylaxis
Early nutrition
Early mobilization
Conference Interpreter service will continue to follow along while patient remains in the CVICU.
Critical care statement: A total of 41 minutes of critical care time was provided for this patient today. This includes management of ventilator, spontaneous breathing trial, arterial blood gases, pressors, of unstable vital signs, evaluation of the
patient at bedside, reviewing the patient's pertinent medical records including radiographs, microbiology, laboratory evaluations, and discussion with primary team and critical care nursing.
Subjective Dataa
Subjective Data
Date of Service:
Date of Service: March 05, 2025
Chief Complaint: Conference Interpreter Follow Up
Subjective:
Pt seen and evaluated this AM. Currently on insulin drip at 1.1 units/hr, dobutamine at 4 mcg/kg/min and Levophed at 2 mcg/min. She has her CPAP from home at bedside. HR 78. BP via A-line 115/57, PAP 40/29, SpO2: 98%. CO/CI: 4.44/2.21.
Mediastinal chest tubes x2 in place. She feels well, denies SOB currently. She is now on 2L/min.
Review of Systems
General: Other (Negative unless mentioned above)
Objective Data
Data Reviewed
Vital Signs / I&O / Oxygen:
Vital Signs
Temp Pulse Resp BP Pulse Ox
99 F 78 17 95/67 97
03/05/25 08:00 03/05/25 09:15 03/05/25 09:15 03/05/25 07:00 03/05/25 09:00
Intake and Output
03/04/25 03/05/25 03/06/25
06:59 06:59 06:59
Intake Total 2163 / 2163 2205.7 / 2205.7 109.2 / 109.2
Output Total 4700 / 4700 1385 / 1385 70 / 70
Balance -2537 / -2537 820.7 / 820.7 39.2 / 39.2
SaO2 [CPAP] 97
SaO2 97
Nasal Cannula flow liters per 6
minute
Physical Exam
General: Respiratory Distress (negative), Comfortable and Chills (negative)
HEENT: Normocephalic, Anicteric and Other (thick neck)
Cardiovascular: S1-S2 and Peripheral Edema (Trace LE edema b/l)
Respiratory: Wheeze (negative), Crackles (bilateral (L>R)), Rhonchi (negative), Non-Labored Respirations and Stridor (negative)
GI: Soft, Distended (abdominal obesity), Non Tender and Normal Bowel Sounds
Neurology: Tremors (negative) and Lethargic (Easily arousable and able to answer my questions appropriately)
Skin: Warm, Dry, Cyanosis (negative) and Jaundice (negative)
Labs/Micro/Reports
Lab Data
03/05/25 03:59
03/05/25 03:59
Laboratory Results
03/04/25 03/04/25 03/04/25
11:33 11:34 11:36
PT Cancelled 17.4 H
INR Cancelled 1.40
APTT Cancelled 33.3
pH 7.37
pCO2 46 H
pO2 69 L
HCO3 26.6
O2 Delivery Level
03/04/25 03/04/25 03/04/25
16:33 20:21 22:51
PT
INR
APTT
pH 7.33 L 7.35 7.36
pCO2 51 H 47 H 46 H
pO2 126 H 78 L 77 L
HCO3 26.9 25.9 26.0
O2 Delivery Level
03/05/25 03/05/25 03/05/25
01:01 03:59 09:10
PT
INR
APTT
pH 7.35 7.33 L 7.37
pCO2 44 H 47 H 44 H
pO2 158 H 89 80 L
HCO3 24.3 24.8 25.4
O2 Delivery Level
--- NOTE | 2025-03-05 08:15 | PTCARENOTE ---
Confirmed w pharmacist that appropriated dose of Wellbutrin is ordered. Medication administered as ordered.
[2025-03-05 08:22] LABS: Glucose - Point of Care 82 mg/dl (70-99)
[2025-03-05] MEDS: HYDREA 1500 MG PO (08:32)
[2025-03-05] MEDS: PROTONIX 40 MG PO (08:32)
[2025-03-05] MEDS: NEURONTIN 100 MG PO ×3 (08:33→21:08)
[2025-03-05] MEDS: KLONOPIN 1 MG PO ×3 (08:33→21:08)
[2025-03-05] MEDS: SENOKOT 8.6 MG PO ×2 (08:33→20:14)
[2025-03-05] MEDS: MAGNESIUM OXIDE 400 MG PO ×2 (08:33→20:14)
[2025-03-05] MEDS: PACERONE 200 MG PO ×3 (08:33→21:07)
[2025-03-05] MEDS: LOW STRENGTH ASPIRIN 81 MG PO (08:34)
[2025-03-05] MEDS: WELLBUTRIN XL (24 hour extended release) 150 MG PO (08:52)
[2025-03-05] MEDS: BACTROBAN 2% OINTMENT 1 APPLIC NASAL ×2 (08:52→20:05)
[2025-03-05] MEDS: WELLBUTRIN REGULAR RELEASE 300 MG PO (08:52)
[2025-03-05] MEDS: FLEXBUMIN 50 IV ×2 (09:12→14:15)
--- NOTE | 2025-03-05 09:20 | PTCARENOTE ---
vital signs captured from previous shift RN.
[2025-03-05 09:21] LABS: B.E. -0.1 mmol/L; HCO3 25.4 mmol/L (21-28); O2 Saturation % 97.9 % (94-98); PCO2 44 mmHg (32-35); PO2 80 mmHg (83-108); Potassium 4.9 mMOL/L (3.5-5.1)
--- NOTE | 2025-03-05 09:22 | PTCARENOTE ---
assumed care of pt from previous shift RN, sinus rhythm on tele, + peripheral pulses, +1 edema to bilateral lower extremities. Right IJ cordis w swan floated to 43, CI 2.21, PAP 47/37, CVP 13. Epicardial pacing wires in place for back up. Lungs
diminished, pox 97% on 6L NC. Coughing and deep breathing encouraged. +bs, tolerated clear liquid breakfast, bullock draining etreza urine. Mediastinal CTs w minimal amount of red drainage. Surgical site approximated w glue intact. Pt was medicated for
pain. Plan of care reviewed and questions encouraged.
DRIPS:
Levophed 6 mcg/min
Dobutamine 5 mcg/kg/min
Insulin titrated per glycemic protocol
--- NOTE | 2025-03-05 09:52 | PTCARENOTE ---
ABG results reviewed w CT SANTANA.
[2025-03-05] MEDS: NOVOLIN R INSULIN INFUSION 100 IV (10:09)
[2025-03-05 10:17] LABS: Glucose - Point of Care 132 mg/dl (70-99)
--- NOTE | 2025-03-05 10:52 | W.PN.CARDCBS ---
Addendum entered and electronically signed by Erick Resendiz MD 03/05/25 17:15:
I saw and examined the patient.
The Winterizer's note was reviewed and I agree with the note.
Comment: Briefly, 59-year-old woman past medical history of severe mitral regurgitation who underwent valve repair on 03/04/2025
Appears comfortable resting in the CVICU
Warm and well-perfused on exam. Currently requiring norepinephrine as well as dobutamine as pressor and inotrope support.
Maintaining sinus rhythm on review of telemetry
Filling pressures are elevated based in invasive hemodynamics- agree with ongoing IV diuresis
We will continue to follow with you
Original Note:
Today's Communication / Plan
-
Diurese as BP allows
Remains on Levo at 6 and dobut at 5
Impression / Plan
-
PCP: Holli Gunn
Primary Transit Man: Dr. Ayers
Impression:
Admitted prior to planned MVR for Xarelto to Heparin bridge 02/28/25
s/p radical MV ring repair with new cords x2 at the posterior leaflet for severe MR with possible rheumatic component 03/04/25
Left atrial appendage exclusion 45 mm 03/04/2025
Postop right bundle branch block
Chronic HFpEF
Nonobstructive coronary artery disease
Type 2 diabetes on insulin
Hypertension
Hyperlipidemia
History of von Willebrand's disease
Polycythemia vera/JAK2 mutation
History of CVA
History of pulmonary embolism/DVT, on chronic Xarelto 10mg daily
History of subdural hematoma status post craniotomy at [facility]
Severe obstructive sleep apnea, noncompliant with CPAP
Pulmonary nodules with restrictive/obstructive lung disease
Tobacco use
Major depressive disorder
Chronic insomnia
GERD
Obesity
Left and right heart catheterization 01/06/2025: Nonobstructive coronary artery disease. HEMODYNAMICS : (mmHg) RA (m) : 16; RV (s/d,m) : 63/11, 60; PA (s/d, m) : 63/27, 42; PCWP (m) : 20; PA saturation: 65.7% on room air; AO saturation: 84.9% on
room air; RA saturation: 66.5% on room air; Cardiac Output : 5.20 L/min by Kavon calculate; Cardiac Index : 2.58 L/min/m-2 by Kavon calculation; Systemic vascular resistance: 1277 dsc^(-5); Pulmonary vascular resistance: 3.85 curtis unit; Heart rate:
75 bpm; AO (s/d) : 146/80; LVEDP : 24; No significant gradient across the aortic valve to suggest aortic stenosis.
ECHO 10/16/20: EF 60-65%, mod cLVH, mild MR, mild TR, PAP 45mmHg
Echo 08/12/2024: EF 69%. Moderate concentric LVH. Stage II DD. Moderate to severe MR with markedly dilated left atrium. Dilated right heart with preserved RV systolic function. Moderate tricuspid regurgitation with PAP 68 to 73 mmHg
SHAVON 12/26/2024: EF 60 to 65%. Mild concentric LVH. Thickened restricted mitral leaflets with reduced excursion suggestive of��rheumatic mitral valve disease. Mitral sclerosis without stenosis; mean mitral�valve gradient 3 mmHg.��Severe central mitral
regurgitation with severely dilated left atrium.���Moderate tricuspid regurgitation. Estimated pulmonary artery pressure is 50��mmHg assuming right atrial pressure of 3 mmHg.
Post surgery SHAVON 03/04/2025: Mitral valve repair with 30 mm annuloplasty ring into neocords as well as cleft closure. With ring well-seated with no paravalvular leak and trivial residual mitral regurgitation. Mean gradient 2. s/p left atrial
appendage occlusion with clip well-seated no flow through the left atrial appendage remnant. Normal LV size and function. Mild to moderate TR.
Plan:
-Patient was electively admitted ahead of planned MV surgery on 02/28/25 for Xarelto to heparin bridge due to h/o PCV with JAK2 mutation, von Willebrand's disease and h/o CVA and DVT/PE.
-Patient had MV ring repair with new cords x2 to the posterior leaflet and LOUIS clip 03/04/25.
-Patient remains on Levophed at 6 and dobutamine at 5 on my review of MAR 03/05/25
-Ongoing hypoxia and transitioned from BiPAP to 6 L NC. ABG reviewed by me 03/05/25 and pO2 was 80 on 6 L. Patient was not using supplemental oxygen prior to admission
-Eventual diuresis as BP improves. Patient was taking Lasix 60 mg PO daily prior to admission
-Heparin gtt on hold post-op and eventually resume outpatient Xarelto
HPI 03/04/2025:
This is a 59-year-old female who has a complex list of comorbidities including hypercoagulable disorder that resulted in a previous CVA and pulmonary embolism secondary to hypercoagulable disorder and polycythemia vera. She also has mixed pathology
mitral valve disease and also complex social history. She was offered mitral valve repair with a higher than average likelihood of replacement given the valve pathology. Due to her history of CVAs and coagulopathy, her left atrial appendage will
be ligated at time of surgery.
Progress Note - Transit Man
Subjective
Date of Service: March 05, 2025
Chest pain surrounding incision
Objective
Labs:
03/05/25 03:59
03/05/25 03:59
Labs
Hgb 12.3 g/dL (12.0-16.0) 03/05/25 03:59
Hct 38.8 % (37.0-47.0) 03/05/25 03:59
Plt Count 283 10^3/uL (130-400) 03/05/25 03:59
PT 17.4 Sec (11.4-14.6) H 03/04/25 11:36
INR 1.40 03/04/25 11:36
APTT 33.3 Sec (23.4-35.0) 03/04/25 11:36
Sodium 138 mmol/L (135-145) 03/05/25 03:59
Potassium 5.2 mmol/L (3.5-5.1) H D 03/05/25 03:59
BUN 22 mg/dl (7-17) H 03/05/25 03:59
Creatinine 1.1 mg/dL (0.6-1.0) H 03/05/25 03:59
Glucose 139 mg/dl (70-99) H 03/05/25 03:59
Vital Signs and I&O:
Vital Signs
Temp Pulse Resp BP Pulse Ox
99.1 F 89 14 99
03/05/25 10:00 03/05/25 10:15 03/05/25 10:15 03/05/25 07:00 03/05/25 10:15
Vital Signs
Temp Pulse Resp BP Pulse Ox
99.1 F 89 14 99
03/05/25 10:00 03/05/25 10:15 03/05/25 10:15 03/05/25 07:00 03/05/25 10:15
Intake & Output
03/03/25 03/04/25 03/05/25 03/06/25
06:59 06:59 06:59 06:59
Intake Total 133 / 133 2163 / 2163 2205.7 / 2205.7 198.3 / 198.3
Output Total 2750 / 2750 4700 / 4700 1385 / 1385 120 / 120
Balance -2617 / -2617 -2537 / -2537 820.7 / 820.7 78.3 / 78.3
Physical Exam
Physical Exam
GEN: NAD. AAO x3
LUNGS: 6 L NC. Decreased BS right worse than left
CV: SR on tele. Reg, S1/S2, no murmur
EXT: Trace to +1 B/L LE edema
--- NOTE | 2025-03-05 11:42 | CM ---
Chart reviewed. Patient lying in bed. Patient is independent of ADLS, currently staying with a friend until 03/26 when she can move into her apartment. 1 story trailer, 4 TRICE, ambulates with a SPC. Plan is for the patient to return to her
friends with CT Transitional RN. CM to follow
[2025-03-05] MEDS: LASIX 40 MG IV (12:17)
[2025-03-05 12:21] LABS: Glucose - Point of Care 122 mg/dl (70-99)
--- NOTE | 2025-03-05 12:25 | PTCARENOTE ---
levophed weaned as tolerated, dobutamine maintained as ordered. Pt medicated for pain. Minimal output from CTs.
[2025-03-05] MEDS: NSS IV (12:43)
[2025-03-05 14:22] LABS: Glucose - Point of Care 100 mg/dl (70-99)
[2025-03-05 16:27] LABS: Glucose - Point of Care 121 mg/dl (70-99)
[2025-03-05 18:06] LABS: Glucose - Point of Care 98 mg/dl (70-99)
--- NOTE | 2025-03-05 19:56 | W.PN.ANS.POP ---
Anesthesia Post Operative
- Anesthesia Post Op Note
Vital Signs Stable-See Nursing Note: Yes
Airway Patent: Yes
Adequate Pain Control: Yes
Change in Mental Status: No
Current Postoperative Nausea & Vomiting: No
Anesthesia Complications: No
General Anesthetic Recall: No
Unplanned Admission: No
Post Op Hydration Adequate: Yes
--- NOTE | 2025-03-05 20:00 | PTCARENOTE ---
assumed care of patient at 1900. Patient Lert and oriented x 3, generalized weakness, and drowsy. Patient is in normal sinus rythym , on Levophed @ 2 mcg/min/kg. and 4 of dobutamine. Pulses normalin upper extremities, and weak on palpitation in
lower. +1 edema in bilateral lower extremities. Lung sounds clear and diminished at bases. Wears CPAP at night. Bowel sounds present, low appetite. Urine output low with bullock 25cc/hr clear yellow.
[2025-03-05 20:19] LABS: Glucose - Point of Care 117 mg/dl (70-99)
[2025-03-05] MEDS: LIPITOR 40 MG PO (21:08)
[2025-03-05] MEDS: SEROQUEL 100 MG PO (21:08)
[2025-03-05 23:08] LABS: Glucose - Point of Care 118 mg/dl (70-99)
[2025-03-06] VITALS (30 sets, daily range): BP systolic 85–126; BP diastolic 49–75; BMI 37.1
[2025-03-06 01:15] LABS: B.E. -0.1 mmol/L; HCO3 25.4 mmol/L (21-28); O2 Saturation % 91.6 % (94-98); PCO2 44 mmHg (32-35); Potassium 4.1 mMOL/L (3.5-5.1)
[2025-03-06 01:18] LABS: PO2 59 mmHg (83-108)
[2025-03-06 01:27] LABS: Glucose - Point of Care 120 mg/dl (70-99)
[2025-03-06 04:09] LABS: Glucose - Point of Care 127 mg/dl (70-99)
--- NOTE | 2025-03-06 04:17 | W.PN.CT ---
Today's Communication / Plan
-
-pod #2
-mild hypoxia overnight while on cpap. PO2 was 63. Pt is pretty somnolent and a mouth-breather. Will hold Gabapentin and Flexeril
-drips: Dobut 4, Levo 1. mVO2 56.6
-CT outputs: 2 meds 65/125 in 12/24 hrs
-wean off Dobut as tolerated
-will restart Xarelto today per Dr. Tineo
-d/c pw
-d/c CTs
-stopped Gabapentin and Flexeril, decrease narcs - pt is somnolent
-encourage OOB, IS
Assessment / Plan
-
Impression:
- s/p Radical mitral valve repair [resection of P1 P2 extremely thickened cords that was tethering down the posterior leaflet, placement of new cords x 2 the posterior leaflet, cleft closure at P1 P2 and P2 P3 as well as A2 A3, 30 mm annuloplasty
ring]; Left atrial appendage exclusion with [address] Tineo on 03/04/25, pod #2
- Intraop SHAVON: LVEF preop was 55% with no significant wma. Following surgery, her EF remained the same at 60% with no new regional wall motion abnormalities. She had a moderate degree of tricuspid valve insufficiency preop secondary to some
annular dilatation. She had severe mitral valve insufficiency. Once off cardiopulmonary bypass the valve had only trace residual mitral valve insufficiency at the P2 P3 area likely at the cleft with no systolic anterior motion of the leaflets and
a mean gradient of 2 mmHg across the valve. Her TR remained the same at moderate.
- Severe mitral valve insufficiency, mixed pathology with type IIIa tethering of the posterior leaflet due to thickened cords of P1 and P2
- electively admitted on 02/28/2025 for Xarelto to IV heparin conversion, preadmission testing prior to mitral valve repair for severe mitral regurgitation, scheduled for with Dr. Tineo.
- JAK2 polycythemia vera with history of hypercoagulable complications requiring chronic daily DOAC
- Pulmonary embolism 2018 & 2023 w/thrombectomy
- Obstructive sleep apnea with CPAP use
- Hypertension
- Tobacco dependence
- Type 2 diabetes
- Class 1 obesity (BMI 34)
- Depression
- Hyperlipidemia
- Von Willebrand disease
- Polycythemia vera
- Right subdural hematoma from fall requiring neurosurgical intervention (01/29/2021)
- Iliac artery thrombosis
- Cerebral hemorrhage
- Chronic kidney disease stage II (Cr 1.2 preop)
- Pulmonary hypertension
- Hard of hearing
- 2004
- Tonsillectomy
- Right L4-L5 IL�LAUREN (02/01/2022)
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
- Acute postop pulmonary insufficiency/atelectasis
- Acute postop hypovolemia with subsequent hypervolemia
Discussed patient care with: Nursing and Care Team
Subjective
-
Date of Service: March 06, 2025
Objective Data
-
PT 17.4 Sec (11.4-14.6) H 03/04/25 11:36
INR 1.40 03/04/25 11:36
APTT 33.3 Sec (23.4-35.0) 03/04/25 11:36
Vital Signs
Vital Signs
Temp Pulse Resp BP Pulse Ox
99.6 F 82 14 92/57 97
03/06/25 02:00 03/06/25 03:30 03/06/25 03:30 03/06/25 03:00 03/06/25 03:[address]
CT Intake/Output/Weight
03/05/25 03/05/25 03/06/25
06:59 18:59 06:59
Intake Total 1708.1 / 2205.7 828.1 / 1565.2 737.1 / 1565.2
Output Total 455 / 1385 1180 / 1495 315 / 1495
Balance 1253.1 / 820.7 -351.9 / 70.2 422.1 / 70.2
SaO2: 97
Physical Exam
-
General: Awake and AOx3
Cardiovascular: Regular rate & rhythm, No Murmurs and Rub
Respiratory: Decreased Breath Sounds
Sternum: Stable
Incision: Clean, Dry and Intact
Abdomen: soft, nontender, mildly distended, +decreased bowel sounds
Extremities: Other (trace edema b/l, 1+DPs b/l)
Data Reviewed
-
Lab Results: Results Reviewed
Medications: Active Meds Reviewed
Chest X-Ray: Report Reviewed and Image Reviewed
ECG: Report Reviewed and Image Reviewed
[2025-03-06 04:19] LABS: B.E. 0.3 mmol/L; HCO3 25.4 mmol/L (21-28); O2 Saturation % 94.3 % (94-98); PCO2 42 mmHg (32-35); PO2 63 mmHg (83-108)
[2025-03-06 04:20] LABS: Hematocrit 30.5 % (37.0-47.0); Hemoglobin 9.9 g/dL (12.0-16.0); Mean Corp Hgb Conc. 32.5 g/dL (33.0-37.0); Mean Corpuscular Volume 121.5 fL (81.0-99.0); Platelet Count 221 10^3/uL (130-400); Red Cell Dist. Width 19.5 % (11.5-14.5)
[2025-03-06 05:18] LABS: Blood Urea Nitrogen 18 mg/dl (7-17); Calcium 8.4 mg/dl (8.4-10.2); Carbon Dioxide 27 mmol/L (22-30); Chloride 104 mmol/L (98-107); Estimated Creatinine Clearance 69 ml/min; Glucose 111 mg/dl (70-99); Magnesium 1.9 mg/dl (1.6-2.3); Potassium 4.8 mmol/L (3.5-5.1); Sodium 132 mmol/L (135-145); eGFR > 60.00
--- NOTE | 2025-03-06 05:59 | PTCARENOTE ---
patient sitting up in bed, drowsy frequently falls back to sleep. Levophed weaned off, Dobutamine at 4, Lungs clear, on 2 L nasal canula,was on 6 L with home cpap machine over night.
[2025-03-06 06:08] LABS: Glucose - Point of Care 104 mg/dl (70-99)
[2025-03-06] MEDS: TYLENOL 975 MG PO ×2 (06:35→18:34)
[2025-03-06 07:16] LABS: Glucose - Point of Care 94 mg/dl (70-99)
[2025-03-06 08:09] LABS: Glucose - Point of Care 134 mg/dl (70-99)
--- NOTE | 2025-03-06 08:17 | PN.DE.MGMTRT ---
Insulin Management
- -
03/06/2025: Diabetes Management follow up
Patient admitted 02/28 for severe mitral valve regurgitation, work up for OR. PMH PE, MARIANNA w CPAP, HTN, diabetes, HLD, Von Willebrand disease, JAK2 polycythemia vera, subdural hematoma, cerebral hemorrhage, CKD II, mitral valve regurgitation, anxiety,
depression, suicidal ideation and attempt, PTSD. Prior to admission was taking Farxiga 10 mg daily, Basaglar 10 units BID and Ozempic 5mg weekly. A1C is 6.1%, Cr 1.1, eGFR 57.17.
Patient is currently on bipap, somnolent, unable to discuss diabetes care.
POD # 2 s/p mitral valve repair, doing well. Remains on critical care glycemic protocol
Glucose range 82 to 131, receiving 3 to 6 units of insulin per hour. Due to patients insulin requirements, difficulty arousing and poor po intake will continue insulin infusion and reassess for readiness to transition to SQ insulin tomorrow.
Discussed with nurse. Will cont to follow.
Diabetes History
- -
Type of Diabetes: 2 requiring insulin
Pre-Admission Diabetes Regimen
03/06/25
03:58
Creatinine 1.0
Lab Results
Hemoglobin A1c 6.1 % (4.0-5.6) H 03/01/25 06:04
Insulin Pump Settings
IP Diabetes Regimen
03/05/25 03/05/25 03/05/25
08:20 10:16 12:20
Glucose
POC Glucose 82 132 H 122 H
03/05/25 03/05/25 03/05/25
14:21 16:25 18:04
Glucose
POC Glucose 100 H 121 H 98
03/05/25 03/05/25 03/06/25
20:18 23:07 01:25
Glucose
POC Glucose 117 H 118 H 120 H
03/06/25 03/06/25 03/06/25
03:58 04:08 06:07
Glucose 111 H
POC Glucose 127 H 104 H
03/06/25 03/06/25
07:10 08:08
Glucose
POC Glucose 94 134 H
Meal type: Dinner
Meal type: Breakfast
Amount consumed: 50%
Amount consumed: 50%
Patient Education
--- NOTE | 2025-03-06 08:25 | W.PN.INTV ---
Today's Communication / Plan
Recommendations
Continue with dobutamine gtt, weaning down as tolerated while trending MVO2 with goal >65
Insulin drip with goal BG 110�140
Pain control
Encourage incentive spirometer
Continue with her BiPAP with sleep and high flow during the day
Trend blood gas
Removal of chest tubes per CT surgery team
Air Valve Mechanic service will continue to follow along while patient remains in the CVICU. Once transferred to CVICU�telemetry status then we will sign off at that time.
Assessment
-
Assessment: 59-year-old female with extensive past medical history including MARIANNA on CPAP, former tobacco use, DM type II, PCV, von Willebrand disease, iliac artery thrombosis, history of cerebral hemorrhage, CKD, pulmonary hypertension, history of
PE x 2 (thrombectomy with 2nd episode), hypertension and hyperlipidemia who presented for IV heparin bridge while awaiting mitral valve repair. Patient known to the cardiothoracic surgery service, with last visit on 02/[address] Tineo. She
currently lives in a senior care. Recent transesophageal echo on 12/26/2024 showed thickened restrictive mitral leaflets with reduced excursion suggestive of rheumatic mitral valve disease. There was also severe central mitral regurgitation with
severely dilated left atrium. The PASP was estimated to be 50 mmHg. Of note, prior transthoracic echo in July 2024 also showed moderate�severe mitral regurgitation and PASP at that time was 68-73 mmHg. Patient's recent heart cath on 01/06/2025
showed an elevated transpulmonary gradient with PVR 3.85 Wood units, and no obstructive coronary artery disease. Surgical repair of her mitral valve was discussed and she agreed to this procedure. Given that she is on Xarelto, it was recommended
that she be bridged off her NOAC with heparin prior to the procedure. Patient agreed to this and she presented to the hospital here at on 02/28/2025. On 03/04/2025, she underwent radical mitral valve repair with a left atrial appendage exclusion.
There were no immediate complications, and the patient was transferred to the CVICU postoperatively for further care. Air Valve Mechanic/Pulmonary service is now consulted for additional management/recommendations.
Chronic conditions LOFTSMAN: Severe mitral regurgitation, restrictive lung disease, pulmonary nodule, MARIANNA on CPAP, insomnia, former tobacco smoker (quit 2021), history of PE on Xarelto with history of thrombectomy, hypertension, hyperlipidemia, DM type
II, depression, von Willebrand disease, POTS stimulator, right subdural hematoma from fall requiring neurosurgical intervention ([place] � 01/29/2021), iliac artery thrombosis, cerebral hemorrhage, chronic diastolic heart failure, history of pneumonia
Impression:
#Severe mitral valve insufficiency s/p radical mitral valve repair + left atrial appendage exclusion (POD #2)
#Acute respiratory failure with hypercapnia while on mechanical ventilation - pt now extubated and pCO2 improved and is stable
#CKD
#Hypertension
#Hyperlipidemia
#JAK2 gene mutation with coagulopathy
#Von Willebrand's disease
#DM type II
#History of PCV
#PTSD
#History of CVA + pulmonary embolism
Plan:
Patient was successfully extubated on 03/04/2025 and transitioned to BiPAP at 12/5cmH2O bled with 3L/min
She has her own machine from home at bedside, and she should continue to use this while hospitalized
Continue with supplemental oxygen as needed and maintain SpO2 >90-94% --> given low pO2 this AM, she is now on high flow nasal cannula and pO2 has improved on this (from 59 to 127), although she is on 60% FiO2 and there is still a increased A�a
gradient
Trend blood gas at least once daily to assure pCO2 and pH remain stable
prn nebulized bronchodilators - not currently bronchospastic
Pulmonary artery catheter parameters will be followed
Pressors/antihypertensive/inotropes/diuretics will be provided as needed
Maintain MAP>65
Replete electrolytes with K>4, Mg>2
Diurese as needed and closely monitor I/O; CXR appears to show interstitial edema
Monitor chest tube output (mediastinal chest tubes x2 - to be removed today)
Monitor hemoglobin
Monitor platelet count and coags
Transfuse blood products as needed to maintain Hb>7g/dL, plt>50k (given post-operative status)
CT surgery managing chest tubes
Monitor blood sugar to maintain euglycemia with goal BG 110-140
Insulin drip per protocol
Aspiration precautions
DVT prophylaxis
Early nutrition
Early mobilization
Air Valve Mechanic service will continue to follow along while patient remains in the CVICU. Once transferred to CVICU�telemetry status then we will sign off at that time.
Critical care statement: A total of 36 minutes of critical care time was provided for this patient today. This includes management of ventilator, spontaneous breathing trial, arterial blood gases, pressors, of unstable vital signs, evaluation of the
patient at bedside, reviewing the patient's pertinent medical records including radiographs, microbiology, laboratory evaluations, and discussion with primary team and critical care nursing.
Subjective Dataa
Subjective Data
Date of Service:
Date of Service: March 06, 2025
Chief Complaint: Air Valve Mechanic Follow Up
Subjective:
Patient seen this morning. Currently on insulin drip at 4.5 units/h and dobutamine at 3 mcg/kg/min. Heart rate currently 83, CO/CI 4.79/2.39, and on high flow nasal cannula at 60% FiO2, 50 L/min and she is breathing comfortably. She is drowsy but
easily arousable by voice and is answering questions appropriately
Review of Systems
General: Other (Negative unless mentioned above)
Objective Data
Data Reviewed
Vital Signs / I&O / Oxygen:
Vital Signs
Temp Pulse Resp BP Pulse Ox
100 F 88 18 114/53 94
03/06/25 09:00 03/06/25 09:50 03/06/25 09:00 03/06/25 09:50 03/06/25 09:00
Intake and Output
03/05/25 03/06/25 03/07/25
06:59 06:59 06:59
Intake Total 2205.7 / 2205.7 1711.0 / 1739.9 108.4 / 108.4
Output Total 1385 / 1385 1628 / 1648 40 / 40
Balance 820.7 / 820.7 83.0 / 91.9 68.4 / 68.4
SaO2 [CPAP] 97
SaO2 94
Nasal Cannula flow liters per 2
minute
Physical Exam
General: Respiratory Distress (negative), Comfortable and Chills (negative)
HEENT: Normocephalic, Anicteric and Other (thick neck)
Cardiovascular: S1-S2 and Peripheral Edema (Trace LE edema b/l)
Respiratory: Wheeze (negative), Crackles (bilateral (L>R)), Rhonchi (negative), Non-Labored Respirations and Stridor (negative)
GI: Soft, Distended (abdominal obesity), Non Tender and Normal Bowel Sounds
Neurology: Tremors (negative) and Lethargic (Easily arousable and able to answer my questions appropriately)
Skin: Warm, Dry, Cyanosis (negative) and Jaundice (negative)
Labs/Micro/Reports
Lab Data
03/06/25 03:57
03/06/25 03:58
Laboratory Results
03/06/25 03/06/25
00:57 03:57
pH 7.37 7.39
pCO2 44 H 42 H
pO2 59 L* 63 L
HCO3 25.4 25.4
O2 Delivery Level
[2025-03-06] MEDS: BACTROBAN 2% OINTMENT 1 APPLIC NASAL ×2 (08:43→22:10)
[2025-03-06] MEDS: HYDREA 1500 MG PO (08:50)
[2025-03-06] MEDS: PROTONIX 40 MG PO (08:51)
[2025-03-06] MEDS: WELLBUTRIN REGULAR RELEASE 300 MG PO (08:51)
[2025-03-06] MEDS: LOW STRENGTH ASPIRIN 81 MG PO (08:54)
[2025-03-06] MEDS: KLONOPIN 1 MG PO ×2 (08:54→22:10)
[2025-03-06] MEDS: XARELTO 20 MG PO (08:54)
[2025-03-06] MEDS: SENOKOT 8.6 MG PO ×2 (08:54→22:11)
[2025-03-06] MEDS: PACERONE 200 MG PO ×3 (09:02→22:10)
[2025-03-06] MEDS: WELLBUTRIN XL (24 hour extended release) 150 MG PO (09:02)
[2025-03-06] MEDS: MAGNESIUM OXIDE 400 MG PO ×2 (09:02→22:10)
[2025-03-06 10:00] LABS: Glucose - Point of Care 131 mg/dl (70-99)
[2025-03-06 10:37] LABS: B.E. - POC 0.2 mmol/L; Blood Urea Nitrogen - POC 18 mg/dl (3-120); Chloride - POC 104 mmol/L (96-111); Creatinine - POC 1.09 mg/dl (0.3-1.0); Glucose - POC 120 mg/dl (70-99); HCO3 - POC 25 mmol/L (21-28); Hematocrit - POC 34 % PCV (37-47); Hemodilution- POC No; Hemoglobin Calculated - POC 11.5; Ionized Calcium - POC 1.21 mmol/L (1.15-1.33); Lactate - POC 1.18 mmol/L (0.36-0.75); O2 Saturation %Calculated-POC 88.9 % (94-98); PCO2 - POC 39 mmHg (35-48); PO2 - POC 56 mmHg (83-108); Potassium - POC 4.0 mmol/L (3.5-5.1); Sodium - POC 138 mmol/L (136-145); Specimen Type - POC Arterial; pH - POC 7.41 (7.35-7.45)
[2025-03-06] MEDS: LEVOPHED 250 IV (11:06)
[2025-03-06] MEDS: NSS IV (11:09)
--- NOTE | 2025-03-06 11:41 | CM ---
Chart reviewed. Patient remains in critical condition on CPAP. Patient is independent of ADLS, currently living with a friend in a 1 story trailer, 4 TRICE, ambulates with a SPC. Plan is for the patient to return to her friends [facility],
[id number], Yessica BROOKS. with CT Transitional RN. CM to follow
[2025-03-06 12:00] LABS: Glucose - Point of Care 198 mg/dl (70-99)
[2025-03-06] MEDS: NOVOLIN R INSULIN INFUSION 100 IV (12:17)
[2025-03-06 12:42] LABS: B.E. 0.7 mmol/L; HCO3 25.4 mmol/L (21-28); O2 Saturation % 92.8 % (94-98); PCO2 40 mmHg (32-35); Potassium 4.1 mMOL/L (3.5-5.1)
[2025-03-06 12:46] LABS: PO2 59 mmHg (83-108)
[2025-03-06 13:00] LABS: Glucose - Point of Care 72 mg/dl (70-99)
[2025-03-06 13:06] LABS: ALT (SGPT) 19 U/L (0-35); AST (SGOT) 32 U/L (14-36); Albumin 3.0 g/dl (3.5-5.0); Alkaline Phosphatase 99 U/L (38-126); Blood Urea Nitrogen 18 mg/dl (7-17); Calcium 8.6 mg/dl (8.4-10.2); Carbon Dioxide 26 mmol/L (22-30); Chloride 105 mmol/L (98-107); Estimated Creatinine Clearance 77 ml/min; Glucose 89 mg/dl (70-99); Potassium 4.2 mmol/L (3.5-5.1); Sodium 134 mmol/L (135-145); Total Protein 5.0 g/dl (6.3-8.2); eGFR > 60.00
[2025-03-06 13:15] LABS: Ammonia < 9 umol/L (9-30)
[2025-03-06 13:36] LABS: Glucose - Point of Care 70 mg/dl (70-99)
[2025-03-06] MEDS: LASIX 40 MG IV (13:38)
[2025-03-06 14:09] LABS: Glucose - Point of Care 116 mg/dl (70-99)
--- NOTE | 2025-03-06 14:52 | PTCARENOTE ---
Patient care assumed from nightshift RN. Pt lethargic and drowsy, but remains fully oriented. Pt on and off levophed gtt throughout the day, currently off and closely monitoring pressure via arterial line. Pt NSR in 80s. BP 129/60. Dobutamine gtt @
3 mcg/kg/min per Dr. Tineo. Insulin gtt continued via crtitical care protocol, currently infusing at 3.5 units per hour. Pt transitioned from CPAP 4L to HFNC 60%/50L, O2 sats now 100%. PO2 on ABG was 59. Lungs diminished in bilateral bases. Pulses
palpable in bilateral upper and lower extremities. Pt voiding in bullock catheter, bullock care completed, see I&O for detailed output. Chest tube mediastinal x2 discontinued, AV wires insulated. Plan to get pt OOB once stable enough to do so.
Repositioning to prevent skin breakdown Q2. RIJ swan ashlie and RIJ cordis in place. See chart for cardiac output and index values.
[2025-03-06 14:59] LABS: Glucose - Point of Care 139 mg/dl (70-99)
--- NOTE | 2025-03-06 15:30 | W.PN.CARDCBS ---
Addendum entered and electronically signed by Salvador Esteban DO 03/06/25 21:12:
I saw and examined the patient.
The Downstream Biomanufacturing Technician's note was reviewed and I agree with the note.
Comment:
Plan:
Patient was electively admitted ahead of planned MV surgery on 02/28/25 for Xarelto to heparin bridge due to h/o PCV with JAK2 mutation, von Willebrand's disease and h/o CVA and DVT/PE.
Patient had MV ring repair with new cords x2 to the posterior leaflet and LOUIS clip 03/04/25.
Cont IV diuresis
Wean pressors as able.
On HiFlo O2
Outpatient Xarelto restarted 03/06/25
Discussed with nursing.
Original Note:
Today's Communication / Plan
-
Starting to diurese after Lasix 40 mg IV this afternoon, if BP stable then would give another 40 mg IV tonight
Impression / Plan
-
PCP: Holli Gunn
Primary Fireworks Maker: Dr. Ayers
Impression:
Admitted prior to planned MVR for Xarelto to Heparin bridge 02/28/25
s/p radical MV ring repair with new cords x2 at the posterior leaflet for severe MR with possible rheumatic component 03/04/25
Left atrial appendage exclusion 45 mm 03/04/2025
Postop right bundle branch block
Chronic HFpEF
Nonobstructive coronary artery disease
Type 2 diabetes on insulin
Hypertension
Hyperlipidemia
History of von Willebrand's disease
Polycythemia vera/JAK2 mutation
History of CVA
History of pulmonary embolism/DVT, on chronic Xarelto 10mg daily
History of subdural hematoma status post craniotomy at [place]
Severe obstructive sleep apnea, noncompliant with CPAP
Pulmonary nodules with restrictive/obstructive lung disease
Tobacco use
Major depressive disorder
Chronic insomnia
GERD
Obesity
Left and right heart catheterization 01/06/2025: Nonobstructive coronary artery disease. HEMODYNAMICS : (mmHg) RA (m) : 16; RV (s/d,m) : 63/11, 60; PA (s/d, m) : 63/27, 42; PCWP (m) : 20; PA saturation: 65.7% on room air; AO saturation: 84.9% on
room air; RA saturation: 66.5% on room air; Cardiac Output : 5.20 L/min by Kavon calculate; Cardiac Index : 2.58 L/min/m-2 by Kavon calculation; Systemic vascular resistance: 1277 dsc^(-5); Pulmonary vascular resistance: 3.85 curtis unit; Heart rate:
75 bpm; AO (s/d) : 146/80; LVEDP : 24; No significant gradient across the aortic valve to suggest aortic stenosis.
ECHO 10/16/20: EF 60-65%, mod cLVH, mild MR, mild TR, PAP 45mmHg
Echo 08/12/2024: EF 69%. Moderate concentric LVH. Stage II DD. Moderate to severe MR with markedly dilated left atrium. Dilated right heart with preserved RV systolic function. Moderate tricuspid regurgitation with PAP 68 to 73 mmHg
SHAVON 12/26/2024: EF 60 to 65%. Mild concentric LVH. Thickened restricted mitral leaflets with reduced excursion suggestive of��rheumatic mitral valve disease. Mitral sclerosis without stenosis; mean mitral�valve gradient 3 mmHg.��Severe central mitral
regurgitation with severely dilated left atrium.���Moderate tricuspid regurgitation. Estimated pulmonary artery pressure is 50��mmHg assuming right atrial pressure of 3 mmHg.
Post surgery SHAVON 03/04/2025: Mitral valve repair with 30 mm annuloplasty ring into neocords as well as cleft closure. With ring well-seated with no paravalvular leak and trivial residual mitral regurgitation. Mean gradient 2. s/p left atrial
appendage occlusion with clip well-seated no flow through the left atrial appendage remnant. Normal LV size and function. Mild to moderate TR.
Plan:
-Patient was electively admitted ahead of planned MV surgery on 02/28/25 for Xarelto to heparin bridge due to h/o PCV with JAK2 mutation, von Willebrand's disease and h/o CVA and DVT/PE.
-Patient had MV ring repair with new cords x2 to the posterior leaflet and LOUIS clip 03/04/25.
-Levophed weaned down to 1 and dobutamine down to 3 on my review of MAR 03/06/25
-Ongoing hypoxia and now on high flow.
-CT surgery ordered Lasix 40 mg IV x1 03/06/25. If BP stable then hopefully patient can have a 2nd dose of Lasix IV 03/06/25. Patient was taking Lasix 60 mg PO daily prior to admission
-Outpatient Xarelto restarted 03/06/25
HPI 03/04/2025:
This is a 59-year-old female who has a complex list of comorbidities including hypercoagulable disorder that resulted in a previous CVA and pulmonary embolism secondary to hypercoagulable disorder and polycythemia vera. She also has mixed pathology
mitral valve disease and also complex social history. She was offered mitral valve repair with a higher than average likelihood of replacement given the valve pathology. Due to her history of CVAs and coagulopathy, her left atrial appendage will
be ligated at time of surgery.
Progress Note - Fireworks Maker
Subjective
Date of Service: March 06, 2025
She says she feels lousy
Objective
Labs:
03/06/25 03:57
03/06/25 12:31
Labs
Hgb 9.9 g/dL (12.0-16.0) L 03/06/25 03:57
Hct 30.5 % (37.0-47.0) L 03/06/25 03:57
Plt Count 221 10^3/uL (130-400) D 03/06/25 03:57
PT 17.4 Sec (11.4-14.6) H 03/04/25 11:36
INR 1.40 03/04/25 11:36
APTT 33.3 Sec (23.4-35.0) 03/04/25 11:36
Sodium 134 mmol/L (135-145) L 03/06/25 12:31
Potassium 4.2 mmol/L (3.5-5.1) 03/06/25 12:31
BUN 18 mg/dl (7-17) H 03/06/25 12:31
Creatinine 0.9 mg/dL (0.6-1.0) 03/06/25 12:31
Glucose 89 mg/dl (70-99) 03/06/25 12:31
Vital Signs and I&O:
Vital Signs
Temp Pulse Resp BP Pulse Ox
99.7 F 87 23 87/56 100
03/06/25 14:00 03/06/25 14:30 03/06/25 14:30 03/06/25 14:01 03/06/25 14:49
Vital Signs
Temp Pulse Resp BP Pulse Ox
99.7 F 87 23 87/56 100
03/06/25 14:00 03/06/25 14:30 03/06/25 14:30 03/06/25 14:01 03/06/25 14:49
Intake & Output
03/04/25 03/05/25 03/06/25 03/07/25
06:59 06:59 06:59 06:59
Intake Total 2163 / 2163 2205.7 / 2205.7 1711.0 / 1739.9 304.6 / 304.6
Output Total 4700 / 4700 1385 / 1385 1628 / 1648 765 / 765
Balance -2537 / -2537 820.7 / 820.7 83.0 / 91.9 -460.4 / -460.4
Physical Exam
Physical Exam
GEN: NAD. AAO x3
LUNGS: High flow oxygen. Decreased BS right worse than left
CV: SR on tele. Reg, S1/S2, no murmur
EXT: Trace to +1 B/L LE edema
[2025-03-06 16:04] LABS: B.E. 0.7 mmol/L; HCO3 25.4 mmol/L (21-28); O2 Saturation % 99.6 % (94-98); PCO2 40 mmHg (32-35); PO2 127 mmHg (83-108)
--- NOTE | 2025-03-06 16:59 | W.PN.UPDATE ---
Update Note
Progress Note Update
Dobutamine weaned to 3mcg/kg/min, midodrine 10 mg 3 times daily started and Levophed weaned off. Chest tubes discontinued. Patient lethargic and ABG reported hypoxia with PaO2 56. BiPAP placed with repeat pO2 59/CO2 40. Patient placed on high
flow 60% / 50 L with pO2 improved to 127/CO2 40, O2 ehn992%. Lasix 40mg IV x 1 with >1L diuresed. Patient OOB>chair @ 1630, conversant.
[2025-03-06 17:00] LABS: Glucose - Point of Care 101 mg/dl (70-99)
[2025-03-06] MEDS: TYLENOL PO ×2 (17:50→22:11)
[2025-03-06] MEDS: KLONOPIN PO (17:50)
[2025-03-06 18:14] LABS: Glucose - Point of Care 79 mg/dl (70-99)
[2025-03-06 19:25] LABS: Glucose - Point of Care 125 mg/dl (70-99)
--- NOTE | 2025-03-06 20:15 | PTCARENOTE ---
assumed care of pt from previous shift RN, pt sitting in chair at time of assessment. pt AAOx4, drowsy. sinus rhythm on tele, HR 80s + peripheral pulses, +1 edema to bilateral lower extremities. Right IJ cordis w swan floated to 43, L radial A-line
intact. all lines flushed, leveled, and zeroed. Epicardial pacing wires insulated. Lungs diminished, pox 100% on HFNC 50L 60%. Coughing and deep breathing encouraged. +bs, bullock draining clear yellow urine. Surgical site approximated w glue
intact. PIV x 2 intact. Insulin infusing per glycemic protocol. Plan of care reviewed and questions encouraged. call kolb within reach
[2025-03-06 20:16] LABS: Glucose - Point of Care 163 mg/dl (70-99)
[2025-03-06 21:06] LABS: Glucose - Point of Care 151 mg/dl (70-99)
[2025-03-06] MEDS: LIPITOR 40 MG PO (22:10)
[2025-03-06] MEDS: SEROQUEL 100 MG PO (22:10)
[2025-03-06] MEDS: MUCINEX 600 MG PO (22:10)
[2025-03-06 22:20] LABS: Glucose - Point of Care 139 mg/dl (70-99)
[2025-03-07] VITALS (12 sets, daily range): BP systolic 93–149; BP diastolic 55–78; PULSE 86; O2SAT 99; BMI 37.2
[2025-03-07] LABS: Glucose - Point of Care 89 mg/dl (70-99)
--- NOTE | 2025-03-07 | PTCARENOTE ---
VSS, NSR per tele monitor HR 80s. pt resting comfortably in bed. assessment remains unchanged
[2025-03-07 01:57] LABS: Glucose - Point of Care 114 mg/dl (70-99)
[2025-03-07 03:44] LABS: Hematocrit 31.3 % (37.0-47.0); Hemoglobin 9.9 g/dL (12.0-16.0); Mean Corp Hgb Conc. 31.6 g/dL (33.0-37.0); Mean Corpuscular Volume 121.3 fL (81.0-99.0); Platelet Count 212 10^3/uL (130-400); Red Cell Dist. Width 18.9 % (11.5-14.5)
[2025-03-07 03:45] LABS: B.E. 3.3 mmol/L; HCO3 28.5 mmol/L (21-28); O2 Saturation % 99.4 % (94-98); PCO2 45 mmHg (32-35); PO2 138 mmHg (83-108); Potassium 3.8 mMOL/L (3.5-5.1)
[2025-03-07 04:04] LABS: Blood Urea Nitrogen 17 mg/dl (7-17); Calcium 8.3 mg/dl (8.4-10.2); Carbon Dioxide 29 mmol/L (22-30); Chloride 106 mmol/L (98-107); Estimated Creatinine Clearance 77 ml/min; Glucose 106 mg/dl (70-99); Magnesium 1.9 mg/dl (1.6-2.3); Potassium 4.0 mmol/L (3.5-5.1); Sodium 136 mmol/L (135-145); eGFR > 60.00
[2025-03-07 04:32] LABS: Glucose - Point of Care 76 mg/dl (70-99)
--- NOTE | 2025-03-07 05:00 | PTCARENOTE ---
Cordis leaking dressing changed. NSR per tele monitor. Labs sent.
[2025-03-07 05:23] LABS: Glucose - Point of Care 108 mg/dl (70-99)
[2025-03-07 06:12] LABS: Glucose - Point of Care 146 mg/dl (70-99)
[2025-03-07] MEDS: TYLENOL PO (06:39)
[2025-03-07 07:58] LABS: Glucose - Point of Care 132 mg/dl (70-99)
--- NOTE | 2025-03-07 07:59 | PN.DE.MGMTRT ---
Insulin Management
- -
03/07/2025: Diabetes Management follow up
Patient admitted 02/28 for severe mitral valve regurgitation, work up for OR. PMH PE, MARIANNA w CPAP, HTN, diabetes, HLD, Von Willebrand disease, JAK2 polycythemia vera, subdural hematoma, cerebral hemorrhage, CKD II, mitral valve regurgitation, anxiety,
depression, suicidal ideation and attempt, PTSD. Prior to admission was taking Farxiga 10 mg daily, Basaglar 10 units BID and Ozempic 5mg weekly. A1C is 6.1%, Cr 1.1, eGFR 57.17.
Patient is awake, appears more alert today, oriented, conversant while sitting in a chair, able to discuss diabetes care.
POD # 3 s/p mitral valve repair, doing well. Remains on critical care glycemic protocol
Glucose range 76 to 146, receiving 0.1 to 1.7 units of insulin per hour.
Will transition off insulin infusion to SQ insulin. Give Lantus 10 units, now, drip off 1 hrs after giving Lantus.
Start Farxiga 10mg daily, 1st dose now. resume Lantus 10 units BID (takes Basaglar 10 units BID)
Discussed with nurse. Will cont to follow.
Diabetes History
- -
Type of Diabetes: 2 requiring insulin
Pre-Admission Diabetes Regimen
03/06/25 03/07/25
12:31 03:26
Creatinine 0.9 0.9
Lab Results
Hemoglobin A1c 6.1 % (4.0-5.6) H 03/01/25 06:04
Insulin Pump Settings
IP Diabetes Regimen
03/06/25 03/06/25 03/06/25
08:08 09:58 11:59
Glucose
POC Glucose 134 H 131 H 198 H
03/06/25 03/06/25 03/06/25
12:31 12:59 13:35
Glucose 89
POC Glucose 72 70
03/06/25 03/06/25 03/06/25
14:07 14:58 16:57
Glucose
POC Glucose 116 H 139 H 101 H
03/06/25 03/06/25 03/06/25
18:12 19:21 20:14
Glucose
POC Glucose 79 125 H 163 H
03/06/25 03/06/25 03/06/25
21:04 22:19 23:59
Glucose
POC Glucose 151 H 139 H 89
03/07/25 03/07/25 03/07/25
01:55 03:26 04:30
Glucose 106 H
POC Glucose 114 H 76
03/07/25 03/07/25 03/07/25
05:21 06:10 07:56
Glucose
POC Glucose 108 H 146 H 132 H
Meal type: Breakfast
Amount consumed: 40%
Patient Education
--- NOTE | 2025-03-07 08:03 | W.PN.CT ---
Today's Communication / Plan
-
-pod #3
-no issues overnight. Pt appears more alert, conversant while sitting in a chair, A&O. Gabapentin and Flexeril were stopped d/t somnolence
-re-started on Xarelto on 03/06
-drips: Dobut 3, Insulin. mvO2 67.9. CI 1.7-1.9 overnight
-plan is to decrease Dobut by 0.5 daily until weaned off per Dr. Tineo
-Echo today
-started Mucinex, needs encouragement with IS (upto 500 so far), OOB
Assessment / Plan
-
Impression:
- s/p Radical mitral valve repair [resection of P1 P2 extremely thickened cords that was tethering down the posterior leaflet, placement of new cords x 2 the posterior leaflet, cleft closure at P1 P2 and P2 P3 as well as A2 A3, 30 mm annuloplasty
ring]; Left atrial appendage exclusion with [address] Tineo on 03/04/25, pod #3
- Intraop SHAVON: LVEF preop was 55% with no significant wma. Following surgery, her EF remained the same at 60% with no new regional wall motion abnormalities. She had a moderate degree of tricuspid valve insufficiency preop secondary to some
annular dilatation. She had severe mitral valve insufficiency. Once off cardiopulmonary bypass the valve had only trace residual mitral valve insufficiency at the P2 P3 area likely at the cleft with no systolic anterior motion of the leaflets and
a mean gradient of 2 mmHg across the valve. Her TR remained the same at moderate.
- Severe mitral valve insufficiency, mixed pathology with type IIIa tethering of the posterior leaflet due to thickened cords of P1 and P2
- electively admitted on 02/28/2025 for Xarelto to IV heparin conversion, preadmission testing prior to mitral valve repair for severe mitral regurgitation, scheduled for with Dr. Tineo.
- JAK2 polycythemia vera with history of hypercoagulable complications requiring chronic daily DOAC
- Pulmonary embolism 2018 & 2023 w/thrombectomy
- Obstructive sleep apnea with CPAP use
- Hypertension
- Tobacco dependence
- Type 2 diabetes
- Class 1 obesity (BMI 34)
- Depression
- Hyperlipidemia
- Von Willebrand disease
- Polycythemia vera
- Right subdural hematoma from fall requiring neurosurgical intervention (01/29/2021)
- Iliac artery thrombosis
- Cerebral hemorrhage
- Chronic kidney disease stage II (Cr 1.2 preop)
- Pulmonary hypertension
- Hard of hearing
- 2004
- Tonsillectomy
- Right L4-L5 IL�LAUREN (02/01/2022)
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
- Acute postop pulmonary insufficiency/atelectasis
- Acute postop hypovolemia with subsequent hypervolemia
Discussed patient care with: Nursing and Care Team
Subjective
-
Date of Service: March 07, 2025
Objective Data
-
PT 17.4 Sec (11.4-14.6) H 03/04/25 11:36
INR 1.40 03/04/25 11:36
APTT 33.3 Sec (23.4-35.0) 03/04/25 11:36
Vital Signs
Vital Signs
Temp Pulse Resp BP Pulse Ox
100.0 F 86 18 93/78 100
03/07/25 02:00 03/07/25 02:00 03/07/25 02:00 03/07/25 01:00 03/07/25 02:00
CT Intake/Output/Weight
03/06/25 03/06/25 03/07/25
06:59 18:59 06:59
Intake Total 882.9 / 1739.9 635.3 / 964.5 329.2 / 964.5
Output Total 448 / 1648 1760 / 2410 650 / 2410
Balance 434.9 / 91.9 -1124.7 / -1445.5 -320.8 / -1445.5
SaO2: 100
Physical Exam
-
General: Awake and AOx3
Cardiovascular: Regular rate & rhythm, No Murmurs and No Rub
Respiratory: Decreased Breath Sounds
Sternum: Stable
Incision: Clean, Dry and Intact
Extremities: Other (trace edema b/l)
Abdomen: soft, nontender, nondistended, + bowel sounds
Data Reviewed
-
Lab Results: Results Reviewed
Medications: Active Meds Reviewed
Chest X-Ray: Report Reviewed and Image Reviewed
ECG: Report Reviewed
--- NOTE | 2025-03-07 08:18 | W.PN.INTV ---
Today's Communication / Plan
Recommendations
Continue with dobutamine gtt, weaning down as tolerated while trending MVO2 with goal >65
Goal BG 110�140
Pain control
Encourage incentive spirometer
Continue with her BiPAP with sleep
Trend blood gas to assure pH and pCO2 remain stable
Removal of chest tubes per CT surgery team
Conduit Helper service will continue to follow along while patient remains in the CVICU. Once transferred to CVICU�telemetry status then we will sign off at that time.
Assessment
-
Assessment: 59-year-old female with extensive past medical history including MARIANNA on CPAP, former tobacco use, DM type II, PCV, von Willebrand disease, iliac artery thrombosis, history of cerebral hemorrhage, CKD, pulmonary hypertension, history of
PE x 2 (thrombectomy with 2nd episode), hypertension and hyperlipidemia who presented for IV heparin bridge while awaiting mitral valve repair. Patient known to the cardiothoracic surgery service, with last visit on 02/[address] Tineo. She
currently lives in a detention. Recent transesophageal echo on 12/26/2024 showed thickened restrictive mitral leaflets with reduced excursion suggestive of rheumatic mitral valve disease. There was also severe central mitral regurgitation with
severely dilated left atrium. The PASP was estimated to be 50 mmHg. Of note, prior transthoracic echo in July 2024 also showed moderate�severe mitral regurgitation and PASP at that time was 68-73 mmHg. Patient's recent heart cath on 01/06/2025
showed an elevated transpulmonary gradient with PVR 3.85 Wood units, and no obstructive coronary artery disease. Surgical repair of her mitral valve was discussed and she agreed to this procedure. Given that she is on Xarelto, it was recommended
that she be bridged off her NOAC with heparin prior to the procedure. Patient agreed to this and she presented to the hospital here at on 02/28/2025. On 03/04/2025, she underwent radical mitral valve repair with a left atrial appendage exclusion.
There were no immediate complications, and the patient was transferred to the CVICU postoperatively for further care. Conduit Helper/Pulmonary service is now consulted for additional management/recommendations.
Chronic conditions HEALTH INSURANCE SALES AGENT: Severe mitral regurgitation, restrictive lung disease, pulmonary nodule, MARIANNA on CPAP, insomnia, former tobacco smoker (quit 2021), history of PE on Xarelto with history of thrombectomy, hypertension, hyperlipidemia, DM type
II, depression, von Willebrand disease, POTS stimulator, right subdural hematoma from fall requiring neurosurgical intervention ([place] � 01/29/2021), iliac artery thrombosis, cerebral hemorrhage, chronic diastolic heart failure, history of pneumonia
Impression:
#Severe mitral valve insufficiency s/p radical mitral valve repair + left atrial appendage exclusion (POD #3)
#Acute respiratory failure with hypercapnia while on mechanical ventilation - pt now extubated and pCO2 improved and is stable
#CKD
#Hypertension
#Hyperlipidemia
#JAK2 gene mutation with coagulopathy
#Von Willebrand's disease
#DM type II
#History of PCV
#PTSD
#History of CVA + pulmonary embolism
Plan:
Patient was successfully extubated on 03/04/2025 and transitioned to BiPAP at 12/5cmH2O bled with 3L/min
She has her own PAP machine from home at bedside, and she should continue to use this while hospitalized during sleep
Continue with supplemental oxygen as needed and maintain SpO2 >90-94% --> given low pO2 on AM of 03/06, she was TRX to high flow. She is now on nasal cannula as of 03/07
Trend blood gas to assure pCO2 and pH remain stable
prn nebulized bronchodilators - not currently bronchospastic
Pulmonary artery catheter parameters will be followed
Pressors/antihypertensive/inotropes/diuretics will be provided as needed
Maintain MAP>65
Replete electrolytes with K>4, Mg>2
Diurese as needed and closely monitor I/O; CXR appears to show interstitial edema
Monitor hemoglobin
Monitor platelet count and coags
Transfuse blood products as needed to maintain Hb>7g/dL, plt>50k (given post-operative status)
Chest tubes now removed
Monitor blood sugar to maintain euglycemia with goal BG 110-140
Insulin drip now off; rec'd ISS to keep BG at goal as above
Aspiration precautions
DVT prophylaxis
Early nutrition
Early mobilization
Conduit Helper service will continue to follow along while patient remains in the CVICU. Once transferred to CVICU�telemetry status then we will sign off at that time.
Critical care statement: A total of 31 minutes of critical care time was provided for this patient today. This includes management of ventilator, spontaneous breathing trial, arterial blood gases, pressors, of unstable vital signs, evaluation of the
patient at bedside, reviewing the patient's pertinent medical records including radiographs, microbiology, laboratory evaluations, and discussion with primary team and critical care nursing.
Subjective Dataa
Subjective Data
Date of Service:
Date of Service: March 07, 2025
Chief Complaint: Conduit Helper Follow Up
Subjective:
Patient seen and evaluated today at bedside. Currently on dobutamine at 2.5 mcg/kg/min. She is saturating 99% on 6 L/min nasal cannula, heart rate 82, BP 141/61, PAP 38/20 and CO/CI: 4.62/2.3
Review of Systems
General: Other (Negative unless mentioned above)
Objective Data
Data Reviewed
Vital Signs / I&O / Oxygen:
Vital Signs
Temp Pulse Resp BP Pulse Ox
99.5 F 85 16 116/59 100
03/07/25 16:00 03/07/25 16:00 03/07/25 16:00 03/07/25 13:19 03/07/25 16:00
Intake and Output
03/06/25 03/07/25 03/08/25
06:59 06:59 06:59
Intake Total 1711.0 / 1739.9 1142.6 / 1142.6 224.2 / 224.2
Output Total 1628 / 1648 2525 / 2525 385 / 385
Balance 83.0 / 91.9 -1382.4 / -1382.4 -160.8 / -160.8
SaO2 [CPAP] 97
SaO2 100
Nasal Cannula flow liters per 6
minute
Physical Exam
General: Respiratory Distress (negative), Comfortable and Chills (negative)
HEENT: Normocephalic, Anicteric and Other (thick neck)
Cardiovascular: S1-S2 and Peripheral Edema (Trace LE edema b/l)
Respiratory: Wheeze (negative), Crackles (bilateral (L>R)), Rhonchi (negative), Non-Labored Respirations and Stridor (negative)
GI: Soft, Distended (abdominal obesity), Non Tender and Normal Bowel Sounds
Neurology: Tremors (negative) and Lethargic (Easily arousable and able to answer my questions appropriately)
Skin: Warm, Dry, Cyanosis (negative) and Jaundice (negative)
Labs/Micro/Reports
Lab Data
03/07/25 03:26
03/07/25 03:26
Laboratory Results
03/07/25 03/07/25 03/07/25
03: 09:32 10:00
pH 7.41 7.41 Cancelled
pCO2 45 H 40 H Cancelled
pO2 138 H 103 Cancelled
HCO3 28.5 H 25.4 Cancelled
O2 Delivery Level Cancelled
--- NOTE | 2025-03-07 08:40 | PTCARENOTE ---
received pt from previous shift RN, sinus rhythm on tele w HR 90's, epicardial pacing wires insulated, left radial kenneth leveled and zeroed, BP 120/60, + peripheral pulses, +1 edema to bilateral lower extremities. Right IJ cordis w swan floated to
43, PAP 40/30, CVP 15. Lungs diminished, pox 100% on hiflo nasal cannula 50%/30L. Coughing and deep breathing encouraged. +bs, tolerating PO intake, bullock draining tereza. CT sites cleaned and dressing changed. PIV flushes easily. Echo at bedside.
Plan of care reviewed and questions encouraged.
DRIPS:
Dobutamine 2.5 mcg/kg/min
Insulin titrated per glycemic protocol
[2025-03-07 09:22] LABS: Glucose - Point of Care 118 mg/dl (70-99)
[2025-03-07 09:43] LABS: B.E. 0.7 mmol/L; HCO3 25.4 mmol/L (21-28); O2 Saturation % 99.1 % (94-98); PCO2 40 mmHg (32-35); PO2 103 mmHg (83-108); Potassium 4.5 mMOL/L (3.5-5.1); Sodium 132 mMOL/L (136-145)
[2025-03-07] MEDS: HYDREA 1500 MG PO (09:54)
[2025-03-07] MEDS: XARELTO 20 MG PO (09:54)
[2025-03-07] MEDS: MAGNESIUM OXIDE 400 MG PO ×2 (09:54→20:06)
[2025-03-07] MEDS: PACERONE 200 MG PO ×3 (09:54→21:03)
[2025-03-07] MEDS: LOW STRENGTH ASPIRIN 81 MG PO (09:54)
[2025-03-07] MEDS: SENOKOT 8.6 MG PO ×2 (09:54→20:06)
[2025-03-07] MEDS: WELLBUTRIN XL (24 hour extended release) 150 MG PO (09:54)
[2025-03-07] MEDS: PROTONIX 40 MG PO (09:54)
[2025-03-07] MEDS: WELLBUTRIN REGULAR RELEASE 300 MG PO (09:55)
[2025-03-07] MEDS: MUCINEX 600 MG PO ×2 (09:55→20:06)
[2025-03-07] MEDS: KLONOPIN 1 MG PO ×2 (09:55→21:03)
[2025-03-07] MEDS: BACTROBAN 2% OINTMENT 1 APPLIC NASAL ×2 (09:57→20:06)
[2025-03-07] MEDS: LANTUS 0.1 UNITS SC ×2 (09:58→21:02)
[2025-03-07] MEDS: NSS 500 IV (09:58)
[2025-03-07] MEDS: FARXIGA 10 MG PO (10:06)
--- NOTE | 2025-03-07 10:25 | PTCARENOTE ---
pt assisted from bed to chair w max assist.
--- NOTE | 2025-03-07 11:09 | PTCARENOTE ---
insulin gtt discontinued as ordered.
--- NOTE | 2025-03-07 12:04 | CM ---
Chart reviewed. Patient OOB and sitting in the chair, lethargic and weak. Patient is independent of ADLS, currently living with a friend in a 1 story trailer until 03/26 when she moves into her apartment, 4 TRICE, ambulates with a SPC. Patient
will need a PT evaluation to determine functional assessment for discharge. Plan is for the patient to return to her friends house with CT Transitional RN vs Rehab. CM to follow
[2025-03-07 12:54] LABS: Glucose - Point of Care 141 mg/dl (70-99)
[2025-03-07] MEDS: NOVOLOG FLEXPEN-LOW RESISTANCE SC (12:58)
--- NOTE | 2025-03-07 13:43 | W.PN.CARDCBS ---
Addendum entered and electronically signed by Katya Ayers DO 03/07/25 19:07:
I saw and examined the patient.
The Belt Loop Cutter's note was reviewed and I agree with the note.
Comment: Patient was seen and examined. She is much more alert today and was out of bed to her chair earlier.
GEN: No distress, awake, Ox3
HEENT: mmm
LUNGS: Mildly decreased breath sounds at bases CTA, no wheezes/rales; on 6 L oxygen via HF nasal cannula
CV: Reg, S1/S2, no murmur, rub or gallop
Chest: Sternotomy incision well-approximated without evidence of infection no rocking or clicking
ABD: soft, BS+, NT/ND
EXT: ++edema
Plan:
s/p Radical mitral valve repair [resection of P1 P2 extremely thickened cords that was tethering down the posterior leaflet, placement of new cords x 2 the posterior leaflet, cleft closure at P1 P2 and P2 P3 as well as A2 A3, 30 mm annuloplasty
ring]; Left atrial appendage exclusion with [address] Tieno on 03/04/25, pod #3
-Still requiring high flow nasal cannula O2.Nocturnal BiPAP
-Slow wean of dobutamine
- Continue IV diuretics
-Chest tube management per CT surgery
- Continue PT efforts and incentive spirometry
- Repeat echocardiogram today
-Patient has a history of hypercoagulable state and prior PE/DVT�Xarelto resumed 03/06/2025.
Original Note:
Today's Communication / Plan
-
Consider dose of IV diuresis today
Continue to wean oxygen as able
Dobutamine drip being weaned per CTS
Encourage incentive spirometry
Impression / Plan
-
PCP: Holli Gunn
Primary Peoplesoft Crm Developer: Dr. Ayers
Impression:
Admitted prior to planned MVR for Xarelto to Heparin bridge 02/28/25
s/p radical MV ring repair with new cords x2 at the posterior leaflet for severe MR with possible rheumatic component 03/04/25
Left atrial appendage exclusion 45 mm 03/04/2025
Postop right bundle branch block
Chronic HFpEF
Nonobstructive coronary artery disease
Type 2 diabetes on insulin
Hypertension
Hyperlipidemia
History of von Willebrand's disease
Polycythemia vera/JAK2 mutation
History of CVA
History of pulmonary embolism/DVT, on chronic Xarelto 10mg daily
History of subdural hematoma status post craniotomy at [facility]
Severe obstructive sleep apnea, noncompliant with CPAP
Pulmonary nodules with restrictive/obstructive lung disease
Tobacco use
Major depressive disorder
Chronic insomnia
GERD
Obesity
Left and right heart catheterization 01/06/2025: Nonobstructive coronary artery disease. HEMODYNAMICS : (mmHg) RA (m) : 16; RV (s/d,m) : 63/11, 60; PA (s/d, m) : 63/27, 42; PCWP (m) : 20; PA saturation: 65.7% on room air; AO saturation: 84.9% on
room air; RA saturation: 66.5% on room air; Cardiac Output : 5.20 L/min by Kavon calculate; Cardiac Index : 2.58 L/min/m-2 by Kavon calculation; Systemic vascular resistance: 1277 dsc^(-5); Pulmonary vascular resistance: 3.85 curtis unit; Heart rate:
75 bpm; AO (s/d) : 146/80; LVEDP : 24; No significant gradient across the aortic valve to suggest aortic stenosis.
ECHO 10/16/20: EF 60-65%, mod cLVH, mild MR, mild TR, PAP 45mmHg
Echo 08/12/2024: EF 69%. Moderate concentric LVH. Stage II DD. Moderate to severe MR with markedly dilated left atrium. Dilated right heart with preserved RV systolic function. Moderate tricuspid regurgitation with PAP 68 to 73 mmHg
SHAVON 12/26/2024: EF 60 to 65%. Mild concentric LVH. Thickened restricted mitral leaflets with reduced excursion suggestive of��rheumatic mitral valve disease. Mitral sclerosis without stenosis; mean mitral�valve gradient 3 mmHg.��Severe central mitral
regurgitation with severely dilated left atrium.���Moderate tricuspid regurgitation. Estimated pulmonary artery pressure is 50��mmHg assuming right atrial pressure of 3 mmHg.
Post surgery SHAVON 03/04/2025: Mitral valve repair with 30 mm annuloplasty ring into neocords as well as cleft closure. With ring well-seated with no paravalvular leak and trivial residual mitral regurgitation. Mean gradient 2. s/p left atrial
appendage occlusion with clip well-seated no flow through the left atrial appendage remnant. Normal LV size and function. Mild to moderate TR.
Echo 03/07/2025: pending
Plan:
-Patient was electively admitted ahead of planned MV surgery on 02/28/25 for Xarelto to heparin bridge due to h/o PCV with JAK2 mutation, von Willebrand's disease and h/o CVA and DVT/PE.
-Improving mentation, was able to sit in chair earlier today.
-Patient had MV ring repair with new cords x2 to the posterior leaflet and LOUIS clip 03/04/25.
-Now off Levophed and Insulin gtt. Dobutamine with slow weaned down to 2.5 5 mcg/kg/min 03/07/25
-Was on high flow oxygen now weaned to 6 LPM. Chest tubes out.and post CT removal CXR negative for pneumothorax. Mild subsegmental atelectasis of left lower lobe with mild pleural effusion and mild chronic elevation of right hemidiaphragm.
Encourage incentive spirometer.
- Patient's weight up approximately 15 pounds since preop weight. Patient did get IV Lasix 03/05/2025 and 03/06/2025. Would consider giving additional dose of Lasix 40 mg 03/07/2025. Patient was taking Lasix 60 mg PO daily prior to admission
-Outpatient Xarelto restarted 03/06/25
-Echo 03/07/2025 pending
- Appreciate disease intervention specialist input. Farxiga and Lantus insulin resumed 03/07/2025.
HPI 03/04/2025:
This is a 59-year-old female who has a complex list of comorbidities including hypercoagulable disorder that resulted in a previous CVA and pulmonary embolism secondary to hypercoagulable disorder and polycythemia vera. She also has mixed pathology
mitral valve disease and also complex social history. She was offered mitral valve repair with a higher than average likelihood of replacement given the valve pathology. Due to her history of CVAs and coagulopathy, her left atrial appendage will
be ligated at time of surgery.
Progress Note - Peoples[employer] Crm Developer
Subjective
Date of Service: March 07, 2025
Patient seen and examined. Patient sitting up in bed. She reports she was sitting in chair earlier today and felt well. Sore from sternotomy.
Objective
Labs:
03/07/25 03:26
03/07/25 03:26
Labs
Hgb 9.9 g/dL (12.0-16.0) L 03/07/25 03:26
Hct 31.3 % (37.0-47.0) L 03/07/25 03:26
Plt Count 212 10^3/uL (130-400) 03/07/25 03:26
PT 17.4 Sec (11.4-14.6) H 03/04/25 11:36
INR 1.40 03/04/25 11:36
APTT 33.3 Sec (23.4-35.0) 03/04/25 11:36
Sodium 136 mmol/L (135-145) 03/07/25 03:26
Potassium 4.0 mmol/L (3.5-5.1) 03/07/25 03:26
BUN 17 mg/dl (7-17) 03/07/25 03:26
Creatinine 0.9 mg/dL (0.6-1.0) 03/07/25 03:26
Glucose 106 mg/dl (70-99) H 03/07/25 03:26
Vital Signs and I&O:
Vital Signs
Temp Pulse Resp BP Pulse Ox
98.8 F 83 16 122/68 100
03/07/25 12:00 03/07/25 12:00 03/07/25 12:00 03/07/25 09:29 03/07/25 12:00
Vital Signs
Temp Pulse Resp BP Pulse Ox
98.8 F 83 16 122/68 100
03/07/25 12:00 03/07/25 12:00 03/07/25 12:00 03/07/25 09:29 03/07/25 12:00
Intake & Output
03/05/25 03/06/25 03/07/25 03/08/25
06:59 06:59 06:59 06:59
Intake Total 2205.7 / 2205.7 1711.0 / 1739.9 1142.6 / 1142.6 141.2 / 141.2
Output Total 1385 / 1385 1628 / 1648 2525 / 2525 265 / 265
Balance 820.7 / 820.7 83.0 / 91.9 -1382.4 / -1382.4 -123.8 / -123.8
Physical Exam
Physical Exam
GEN: No distress, awake, Ox3
HEENT: supple, anicteric, mmm
LUNGS: Mildly decreased breath sounds at bases CTA, no wheezes/rales; on 6 L oxygen via nasal cannula
CV: Reg, S1/S2, no murmur, rub or gallop
Chest: Sternotomy incision well-approximated without evidence of infection no rocking or clicking
ABD: soft, BS+, NT/ND
EXT: No edema, clubbing or cyanosis with pneumatic compression pumps in place
NEURO: Gross non-focal
SKIN: No rash, warm, dry, pink
[2025-03-07] MEDS: TYLENOL 975 MG PO ×2 (13:47→21:06)
--- NOTE | 2025-03-07 14:40 | PTCARENOTE ---
assisted pt from chair to bed w PT/OT, pt tolerated.
[2025-03-07] MEDS: LASIX 40 MG IV (16:02)
--- NOTE | 2025-03-07 16:14 | PN.CDI ---
CDI
- -
CDI:
Physician Documentation Request
Admit Date: 02/28/25 14:[address] surgery,
Please review the following and provide your response in the progress notes.
Clinical Indicators:
03/06 RN Note: 'Patient care assumed from nightshift RN. Pt lethargic and drowsy, but remains fully oriented. Pt on and off levophed gtt throughout the day, currently off and closely monitoring pressure via arterial line. Pt NSR in 80s. BP 129/60.
Dobutamine gtt @ 3 mcg/kg/min per Dr. Tineo. Insulin gtt continued via crtitical care protocol, currently infusing at 3.5 units per hour. Pt transitioned from CPAP 4L to HFNC 60%/50L, O2 sats now 100%. PO2 on ABG was 59.
Selected Entries
03/06/25
12:00 03/06/25
14:30 03/06/25
14:49
SaO2 89 90 100
Oxygen Mode of Delivery CPAP HFNL
Nasal Cannula flow liters per minute 4 4 50
Pt note to be on HFNC 03/06 14:48- 03/07 11:00, then 6L midflow NC 11:00-16:00.
Clarify which of the following accurately represents the patient's respiratory status following surgery:
Acute Hypoxic respiratory failure
Acute pulmonary insufficiency Only (following surgery)
Other
Additional information for Pulmonary Insufficiency:
Consider when patients require snf oxygen therapy postoperatively
Weaned off oxygen initially then requiring supplemental oxygen
No other definitive diagnosis to support the need for oxygen (COPD exac, CHF etc.)
Unable to wean from vent
When criteria for respiratory failure not present
May extend stay or require additional resources; may need home O2
Additional information for Respiratory Failure:
Recognized criteria for Respiratory Failure (Source: [employer] Hospitalist Apr 2013)
ABGs: (1 or more) Symptoms Indicate:
1. p)2 <60 or RA SPO2 <91% on RA 1. Tachypnea, SOB, dyspnea 1. Type as:
2. pCO2 50 and pH <7.35 2. Use of accessory muscles a. Hypoxic
3. pO2 decrease of pCO2 increase by 3. Pallor or cyanosis b. Hypercapnic
10 mmHg from baseline if known 4. Anxiety or restlessness 2. If due to procedure or due to another cause
5. Unable to speak in full sentences
Supplemental O2 of > 40% Intubation is not required
Use of terms such as suspected, likely, concern for, or probable (associated with a specific diagnosis that is being evaluated, monitored, or treated as if it exists) are acceptable and can be coded in the inpatient setting, when documented at the
time of discharge.
Thank you,
Merry Thompson RN, BSN
CDI Specialist
[place] [facility]
Please use your independent medical judgment in providing your response.
[2025-03-07] MEDS: KLONOPIN PO (16:43)
[2025-03-07 17:47] LABS: Glucose - Point of Care 163 mg/dl (70-99)
[2025-03-07] MEDS: NOVOLOG FLEXPEN-LOW RESISTANCE 1 UNITS SC (17:47)
--- NOTE | 2025-03-07 20:00 | PTCARENOTE ---
assumed care of pt from previous RN. pt drowsy, responds to verbal stimuli. oriented x4. resting in bed at time of assessment. SR on tele-monitor. temp epicardial A/V wires insulated. POX 100% on 4 L NC. abd s/n, round, obese. +BS. bullock catheter
draining clear, yellow colored urine. all surgical sites stable, CDI. R IJ cordis w/ swan floated to 43cm. L radial a-line. all lines leveled, zeroed, flushed. PIV intact. plan of care discussed w/ pt, pt in agreement. see worklist for complete
nursing assessment, interventions, gtt titrations, VS, and I&Os.
[2025-03-07 21:02] LABS: Glucose - Point of Care 224 mg/dl (70-99)
[2025-03-07] MEDS: LIPITOR 40 MG PO (21:03)
[2025-03-07] MEDS: KCL 20 MEQ PO (21:03)
[2025-03-07] MEDS: SEROQUEL 100 MG PO (21:03)
--- NOTE | 2025-03-07 21:52 | RESPNOTE ---
pt placed on own cpap machine with our full face mask; reasoning is that the pt has O2 issues the other night and was found to be sleeping with her mouth open on her own nasal pillows. 4 LPM bled in
[2025-03-08] VITALS (27 sets, daily range): BP systolic 98–123; BP diastolic 59–94; PULSE 81; O2SAT 96; BMI 36.8
--- NOTE | 2025-03-08 00:15 | PTCARENOTE ---
assessment remains unchanged. VSS. L radial a-line positional. CT PA aware. cordis leaking around insertion site. CT PA aware. pressure dressing applied by CT PA. cordis KVO turned off at this time. dobut to 1 mcg/kg/min per Dr. Tineo.
--- NOTE | 2025-03-08 04:16 | W.PN.CT ---
Addendum entered and electronically signed by Billy Rutledge MD 03/08/25 09:46:
I saw and examined the patient.
The PA's note was reviewed and I agree with the note.
Comment:
POD#4 s/p MVRp, ELAA
No major overnight events, minor oozing from SGC/cordis. ECHO yesterday w/ P/M: 8, no MR, LV hyperdynamic w/ LVEF 70-75%, moderate TR.
Afebrile. 83 sinus. 100-110s/60-70s. 98% 2L
GTTS: dobutamine 1mg. No drains. UO: 2215/last 24 hours.
- Wean dobutamine to OFF (last MvO2 67.8)
- D/C SGC once OFF dobutamine
- Continue midodrine today
- OOB today - ambulate later
- Continue to hold narcotics
- Will require SNF placement on D/C
Original Note:
Today's Communication / Plan
-
Plan:
-No major issues overnight. Hemodynamically and neurologically intact
-On Dobutamine @ 1 since midnight. Last CI 2.10, MVO2 67.8%
-Restarted on Xarelto for her Polycythemia vera with hypercoagulable state s/p hx of b/l PE on 03/06
-Repeat echo yesterday 03/07 showed MV repair to be intact without significant MR, PG/MG of 16/8 mmHg. LVEF 70-75%, probable moderate TR
-Cont. current meds (ASA, Xarelto, Hydroxyurea, Lipitor, Farxiga, Wellbutrin, Amiodarone). Holding BB while on dobutamine, will wean dobutamine
-Holding narcotics/sedatives d/t postop somnolence
-Acute postop hypotension has improved, Midodrine transitioned to PRN
-Cont. bullock for accurate I/O, 24hr u/o 2315 mL
-Encourage use of IS
-OOB into chair/Ambulate
-PT following and recommend SNF placement (previously resided in a residential/halfway and currently living in a trailer with friend, to move into her own apartment on 03/26/25)
Assessment / Plan
-
Impression:
- s/p Radical mitral valve repair [resection of P1 P2 extremely thickened cords that was tethering down the posterior leaflet, placement of new cords x 2 the posterior leaflet, cleft closure at P1 P2 and P2 P3 as well as A2 A3, 30 mm annuloplasty
ring]; Left atrial appendage exclusion with [address] Tineo on 03/04/25, pod #4
- Intraop SHAVON: LVEF preop was 55% with no significant wma. Following surgery, her EF remained the same at 60% with no new regional wall motion abnormalities. She had a moderate degree of tricuspid valve insufficiency preop secondary to some
annular dilatation. She had severe mitral valve insufficiency. Once off cardiopulmonary bypass the valve had only trace residual mitral valve insufficiency at the P2 P3 area likely at the cleft with no systolic anterior motion of the leaflets and
a mean gradient of 2 mmHg across the valve. Her TR remained the same at moderate.
- Severe mitral valve insufficiency, mixed pathology with type IIIa tethering of the posterior leaflet due to thickened cords of P1 and P2
- electively admitted on 02/28/2025 for Xarelto to IV heparin conversion, preadmission testing prior to mitral valve repair for severe mitral regurgitation, scheduled for with Dr. Tineo.
- JAK2 polycythemia vera with history of hypercoagulable complications requiring chronic daily DOAC
- Pulmonary embolism 2018 & 2023 w/thrombectomy
- Obstructive sleep apnea with CPAP use
- Hypertension
- Tobacco dependence
- Type 2 diabetes
- Class 1 obesity (BMI 34)
- Depression
- Hyperlipidemia
- Von Willebrand disease
- Polycythemia vera
- Right subdural hematoma from fall requiring neurosurgical intervention (01/29/2021)
- Iliac artery thrombosis
- Cerebral hemorrhage
- Chronic kidney disease stage II (Cr 1.2 preop)
- Pulmonary hypertension
- Hard of hearing
- 2004
- Tonsillectomy
- Right L4-L5 IL�LAUREN (02/01/2022)
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
-Acute postop blood loss/anemia (stable without transfusion)
-Acute postop atelectasis/left pleural effusion
-Acute postop pulmonary insufficiency
-Acute postop hypovolemia with subsequent hypervolemia
-Acute postop somnolence, resolved with holding narcotics/sedatives
Discussed patient care with: Cardiology, Nursing, Respiratory Therapy, Pharmacy and Care Team
Subjective
-
Date of Service: March 08, 2025
Pt c/o mild incisional pain, otherwise feels well
Objective Data
-
PT 17.4 Sec (11.4-14.6) H 03/04/25 11:36
INR 1.40 03/04/25 11:36
APTT 33.3 Sec (23.4-35.0) 03/04/25 11:36
Vital Signs
Vital Signs
Temp Pulse Resp BP Pulse Ox
98.3 F 78 18 107/60 100
03/08/25 03:00 03/08/25 03:11 03/08/25 03:11 03/08/25 03:00 03/08/25 03:11
CT Intake/Output/Weight
03/07/25 03/07/25 03/08/25
06:59 18:59 06:59
Intake Total 507.3 / 1142.6 514.0 / 821.8 307.8 / 821.8
Output Total 765 / 2525 935 / 2175 1240 / 2175
Balance -257.7 / -1382.4 -421.0 / -1353.2 -932.2 / -1353.2
SaO2: 100 (CPAP)
Physical Exam
-
General: Awake, Oriented and AOx3
Cardiovascular: Regular rate & rhythm, No Murmurs, No Rub and No Gallop
Respiratory: Decreased Breath Sounds
Sternum: Stable
Incision: Clean, Dry, Intact and Dressing Intact
Extremities: Other (+trace edema)
Data Reviewed
-
Lab Results: Results Reviewed
Medications: Active Meds Reviewed
Chest X-Ray: Report Reviewed and Image Reviewed
ECG: Report Reviewed and Image Reviewed
--- NOTE | 2025-03-08 04:20 | PTCARENOTE ---
no acute changes. VSS. AM labs collected and sent.
[2025-03-08 04:37] LABS: Hematocrit 29.0 % (37.0-47.0); Hemoglobin 9.4 g/dL (12.0-16.0); Mean Corp Hgb Conc. 32.4 g/dL (33.0-37.0); Mean Corpuscular Volume 119.3 fL (81.0-99.0); Platelet Count 228 10^3/uL (130-400); Red Cell Dist. Width 18.6 % (11.5-14.5)
[2025-03-08 04:58] LABS: Blood Urea Nitrogen 20 mg/dl (7-17); Calcium 8.2 mg/dl (8.4-10.2); Carbon Dioxide 30 mmol/L (22-30); Chloride 106 mmol/L (98-107); Estimated Creatinine Clearance 78 ml/min; Glucose 148 mg/dl (70-99); Magnesium 2.3 mg/dl (1.6-2.3); Sodium 136 mmol/L (135-145); eGFR > 60.00
[2025-03-08 05:03] LABS: Potassium 4.5 mmol/L (3.5-5.1)
[2025-03-08] MEDS: TYLENOL 975 MG PO ×2 (06:11→13:38)
[2025-03-08] MEDS: CALCIUM GLUCONATE 130 MG IV (06:28)
[2025-03-08] MEDS: NOVOLOG FLEXPEN-LOW RESISTANCE SC ×3 (07:46→17:33)
[2025-03-08 07:47] LABS: Glucose - Point of Care 136 mg/dl (70-99)
--- NOTE | 2025-03-08 08:00 | PTCARENOTE ---
Patient received from police shift commander resting oob in chair, drowsy but arousable and appropriate. NSR via cm, SaO2 @ 98% on 2lnc. RIJ Cordis/[place]elina catheter, L radial arterial lines present - leveled, flushed, and calibrated w/good waveforms
returned. Epicardial A+V wires insulated to chest wall. [place] catheter to gravity. All procedural sites stable. Dobutamine infusing as ordered - see work list intervention. Patient updated to plan of care for the day, in agreement. See work list for
full assessment and interventions performed.
[2025-03-08] MEDS: MUCINEX 600 MG PO ×2 (08:20→20:49)
[2025-03-08] MEDS: MAGNESIUM OXIDE 400 MG PO ×2 (08:20→20:49)
[2025-03-08] MEDS: KCL 20 MEQ PO (08:20)
[2025-03-08] MEDS: LANTUS 0.1 UNITS SC ×2 (08:20→20:50)
[2025-03-08] MEDS: LOW STRENGTH ASPIRIN 81 MG PO (08:20)
[2025-03-08] MEDS: LASIX 20 MG IV (08:20)
[2025-03-08] MEDS: WELLBUTRIN XL (24 hour extended release) 150 MG PO (08:20)
[2025-03-08] MEDS: FARXIGA 10 MG PO (08:20)
[2025-03-08] MEDS: PACERONE 200 MG PO ×3 (08:21→20:50)
[2025-03-08] MEDS: PROTONIX 40 MG PO (08:21)
[2025-03-08] MEDS: WELLBUTRIN REGULAR RELEASE 300 MG PO (08:21)
[2025-03-08] MEDS: HYDREA 1500 MG PO (08:21)
[2025-03-08] MEDS: SENOKOT 8.6 MG PO ×2 (08:21→20:49)
[2025-03-08] MEDS: XARELTO 20 MG PO (08:21)
[2025-03-08] MEDS: BACTROBAN 2% OINTMENT 1 APPLIC NASAL (08:22)
--- NOTE | 2025-03-08 08:23 | W.PN.INTV ---
Today's Communication / Plan
Recommendations
Now off dobutamine gtt
Goal BG 110�140
Pain control
Encourage incentive spirometer
Continue with her BiPAP with sleep bleeding in O2 as needed to keep SpO2 >90-94%
Trend blood gas to assure pH and pCO2 remain stable
Patient to be transferred to CVICU-telemetry status today; once downgraded then Hand Hide Stretcher service will sign off at that time. Please call pulmonary service if any questions or concerns.
Assessment
-
Assessment: 59-year-old female with extensive past medical history including MARIANNA on CPAP, former tobacco use, DM type II, PCV, von Willebrand disease, iliac artery thrombosis, history of cerebral hemorrhage, CKD, pulmonary hypertension, history of
PE x 2 (thrombectomy with 2nd episode), hypertension and hyperlipidemia who presented for IV heparin bridge while awaiting mitral valve repair. Patient known to the cardiothoracic surgery service, with last visit on 02/[address] Tineo. She
currently lives in a alf. Recent transesophageal echo on 12/26/2024 showed thickened restrictive mitral leaflets with reduced excursion suggestive of rheumatic mitral valve disease. There was also severe central mitral regurgitation with
severely dilated left atrium. The PASP was estimated to be 50 mmHg. Of note, prior transthoracic echo in July 2024 also showed moderate�severe mitral regurgitation and PASP at that time was 68-73 mmHg. Patient's recent heart cath on 01/06/2025
showed an elevated transpulmonary gradient with PVR 3.85 Wood units, and no obstructive coronary artery disease. Surgical repair of her mitral valve was discussed and she agreed to this procedure. Given that she is on Xarelto, it was recommended
that she be bridged off her NOAC with heparin prior to the procedure. Patient agreed to this and she presented to the hospital here at on 02/28/2025. On 03/04/2025, she underwent radical mitral valve repair with a left atrial appendage exclusion.
There were no immediate complications, and the patient was transferred to the CVICU postoperatively for further care. Hand Hide Stretcher/Pulmonary service is now consulted for additional management/recommendations.
Chronic conditions STAFF DEVELOPER: Severe mitral regurgitation, restrictive lung disease, pulmonary nodule, MARIANNA on CPAP, insomnia, former tobacco smoker (quit 2021), history of PE on Xarelto with history of thrombectomy, hypertension, hyperlipidemia, DM type
II, depression, von Willebrand disease, POTS stimulator, right subdural hematoma from fall requiring neurosurgical intervention ([place] � 01/29/2021), iliac artery thrombosis, cerebral hemorrhage, chronic diastolic heart failure, history of pneumonia
Impression:
#Severe mitral valve insufficiency s/p radical mitral valve repair + left atrial appendage exclusion (POD #4)
#Acute respiratory failure with hypercapnia while on mechanical ventilation - pt now extubated and pCO2 improved and is stable
#CKD
#Hypertension
#Hyperlipidemia
#JAK2 gene mutation with coagulopathy
#Von Willebrand's disease
#DM type II
#History of PCV
#PTSD
#History of CVA + pulmonary embolism
Plan:
Patient was successfully extubated on 03/04/2025 and transitioned to BiPAP at 12/5cmH2O bled with 3L/min
She has her own PAP machine from home at bedside, and she should continue to use this while hospitalized during sleep but with our full face mask as she had been hypoxic recently on her CPAP using her nasal pillows; bleed supplemental O2 as needed
to keep SpO2 >90-94%
Continue with supplemental oxygen as needed and maintain SpO2 >90-94% --> given low pO2 on AM of 03/06, she was TRX to high flow. She is now on nasal cannula as of 03/07
Trend blood gas to assure pCO2 and pH remain stable
prn nebulized bronchodilators - not currently bronchospastic
Pressors/antihypertensive/inotropes/diuretics will be provided as needed
Maintain MAP>65
Replete electrolytes with K>4, Mg>2
Diurese as needed and closely monitor I/O; CXR now shows improved interstitial edema
Monitor hemoglobin
Monitor platelet count and coags
Transfuse blood products as needed to maintain Hb>7g/dL, plt>50k (given post-operative status)
Chest tubes now removed
Monitor blood sugar to maintain euglycemia with goal BG 110-140
Insulin drip now off; rec'd ISS to keep BG at goal as above
Aspiration precautions
DVT prophylaxis
Early nutrition
Early mobilization
Patient to be transferred to CVICU-telemetry status today; once downgraded then Hand Hide Stretcher service will sign off at that time. Please call pulmonary service if any questions or concerns.
Total time spent today was 57 minutes for this encounter. Time includes reviewing laboratory test/imaging results, reviewing pertinent medical records, obtaining and reviewing medical history, performing an appropriate exam, ordering medications,
tests and procedures. Time also includes documentation of this encounter, coordinating patient care and communicating with other healthcare professionals. Total time does not include separately billed tests performed on this date of service.
Subjective Dataa
Subjective Data
Date of Service:
Date of Service: March 08, 2025
Chief Complaint: Hand Hide Stretcher Follow Up
Subjective:
Pt seen this AM. Resting in chair in NAD. She feels well. On 2L/min saturating 98%. BP 102/64 and HR 83.
Review of Systems
General: Other (Negative unless mentioned above)
Objective Data
Data Reviewed
Vital Signs / I&O / Oxygen:
Vital Signs
Temp Pulse Resp BP Pulse Ox
98.8 F 86 15 122/70 98
03/08/25 09:00 03/08/25 09:00 03/08/25 09:00 03/08/25 09:00 03/08/25 09:14
Intake and Output
03/07/25 03/08/25 03/09/25
06:59 06:59 06:59
Intake Total 1142.6 / 1142.6 1049.9 / 1072.6 568.1 / 568.1
Output Total 2525 / 2525 2315 / 2360 295 / 295
Balance -1382.4 / -1382.4 -1265.1 / -1287.4 273.1 / 273.1
SaO2 [CPAP] 97
SaO2 98
Nasal Cannula flow liters per 2
minute
Physical Exam
General: Respiratory Distress (negative), Comfortable and Chills (negative)
HEENT: Normocephalic, Anicteric and Other (thick neck)
Cardiovascular: S1-S2 and Peripheral Edema (Trace LE edema b/l)
Respiratory: Wheeze (negative), Crackles (bases bilaterally), Rhonchi (negative), Non-Labored Respirations, Stridor (negative) and Other (reduced inspiratory effort)
GI: Soft, Distended (abdominal obesity), Non Tender and Normal Bowel Sounds
Neurology: AO x 3 and Tremors (negative)
Skin: Warm, Dry, Cyanosis (negative) and Jaundice (negative)
Labs/Micro/Reports
Lab Data
03/08/25 04:17
03/08/25 04:17
Laboratory Results
03/07/25
10:00
pH Cancelled
pCO2 Cancelled
pO2 Cancelled
HCO3 Cancelled
O2 Delivery Level Cancelled
--- NOTE | 2025-03-08 12:00 | PTCARENOTE ---
Patient assisted to work w/PT. Performed ROM, ambulated several steps in room, became dizzy, settled back to chair - recovered quickly. Lunch ordered. Assessment remains unchanged.
[2025-03-08] MEDS: NSS IV (12:23)
[2025-03-08 12:28] LABS: Glucose - Point of Care 132 mg/dl (70-99)
[2025-03-08 17:30] LABS: Glucose - Point of Care 123 mg/dl (70-99)
--- NOTE | 2025-03-08 20:00 | PTCARENOTE ---
assumed care of pt from previous RN. pt A&Ox4, resting in chair at time of assessment. SR w. 1st degree AVB on tele-monitor. POX 98% on 2 L NC. abd s/n, +BS. pt c/o poor appetite. bullock catheter draining clear, yellow colored urine. all surgical
sites stable, CDI. R IJ cordis w/ KVO. PIV intact. see worklist for complete nursing assessment, interventions, VS, and I&Os.
[2025-03-08] MEDS: LIPITOR 40 MG PO (20:50)
[2025-03-08] MEDS: SEROQUEL 100 MG PO (20:50)
[2025-03-08 20:53] LABS: Glucose - Point of Care 146 mg/dl (70-99)
[2025-03-08] MEDS: TYLENOL PO (20:53)
[2025-03-09] VITALS (21 sets, daily range): BP systolic 105–147; BP diastolic 59–673; PULSE 76–97; O2SAT 92; BMI 36.5
--- NOTE | 2025-03-09 | PTCARENOTE ---
assessment remains unchanged. VSS.
[2025-03-09] MEDS: MYLICON 80 MG PO (03:42)
[2025-03-09 04:08] LABS: Hematocrit 28.1 % (37.0-47.0); Hemoglobin 9.3 g/dL (12.0-16.0); Mean Corp Hgb Conc. 33.1 g/dL (33.0-37.0); Mean Corpuscular Volume 121.1 fL (81.0-99.0); Platelet Count 265 10^3/uL (130-400); Red Cell Dist. Width 18.6 % (11.5-14.5)
--- NOTE | 2025-03-09 04:12 | PTCARENOTE ---
no acute changes. VSS. AM labs collected and sent.
[2025-03-09 04:40] LABS: Blood Urea Nitrogen 25 mg/dl (7-17); Calcium 9.0 mg/dl (8.4-10.2); Carbon Dioxide 30 mmol/L (22-30); Chloride 103 mmol/L (98-107); Estimated Creatinine Clearance 77 ml/min; Glucose 111 mg/dl (70-99); Magnesium 2.3 mg/dl (1.6-2.3); Potassium 4.5 mmol/L (3.5-5.1); Sodium 136 mmol/L (135-145); eGFR > 60.00
--- NOTE | 2025-03-09 04:58 | W.PN.CT ---
Addendum entered and electronically signed by Billy Rutledge MD 03/09/25 09:40:
I saw and examined the patient.
The PA's note was reviewed and I agree with the note.
Comment:
POD#5
No major overnight events. Afebrile. 87 sinus. 110-120/60-70s. 98% 2L. GTTS: none. No drains. UO: 1675/last 24 hours - bullock removed at 6:30AM
- Continue to hold BB today - will discuss instituting tomorrow
- Continue midodrine
- Await void post bullock removal
- OOB/IS/ambulate
- Will on SNF/acute rehab on D/C
Original Note:
Today's Communication / Plan
-
Plan:
-No major issues overnight. Hemodynamically and neurologically intact
-Weaned off dobutamine yesterday 03/08, ankita and a-lined d/c'd after
-Restarted on Xarelto for her Polycythemia vera with hypercoagulable state s/p hx of b/l PE on 03/06
-Postop hypotension, remains on Midodrine
-Repeat echo on 03/07 showed MV repair to be intact without significant MR, PG/MG of 16/8 mmHg. LVEF 70-75%, probable moderate TR
-Cont. current meds (ASA, Xarelto, Hydroxyurea, Lipitor, Farxiga, Wellbutrin, Amiodarone). Holding BB while on dobutamine, will wean dobutamine
-Holding narcotics/sedatives d/t postop somnolence
-D/C'd bullock this AM @ 0630, I/O, 24hr u/o 1675 mL. Cont. diuresis, wt up 11 lbs from preop
-Encourage use of IS
-OOB into chair/Ambulate
-PT following and recommend SNF placement (previously resided in a long-term/senior living and currently living in a trailer with friend, to move into her own apartment on 03/26/25)
Assessment / Plan
-
Impression:
- s/p Radical mitral valve repair [resection of P1 P2 extremely thickened cords that was tethering down the posterior leaflet, placement of new cords x 2 the posterior leaflet, cleft closure at P1 P2 and P2 P3 as well as A2 A3, 30 mm annuloplasty
ring]; Left atrial appendage exclusion with [address] Tineo on 03/04/25, pod #5
- Intraop SHAVON: LVEF preop was 55% with no significant wma. Following surgery, her EF remained the same at 60% with no new regional wall motion abnormalities. She had a moderate degree of tricuspid valve insufficiency preop secondary to some
annular dilatation. She had severe mitral valve insufficiency. Once off cardiopulmonary bypass the valve had only trace residual mitral valve insufficiency at the P2 P3 area likely at the cleft with no systolic anterior motion of the leaflets and
a mean gradient of 2 mmHg across the valve. Her TR remained the same at moderate.
- Severe mitral valve insufficiency, mixed pathology with type IIIa tethering of the posterior leaflet due to thickened cords of P1 and P2
- electively admitted on 02/28/2025 for Xarelto to IV heparin conversion, preadmission testing prior to mitral valve repair for severe mitral regurgitation, scheduled for with Dr. Tineo.
- JAK2 polycythemia vera with history of hypercoagulable complications requiring chronic daily DOAC
- Pulmonary embolism 2018 & 2023 w/thrombectomy
- Obstructive sleep apnea with CPAP use
- Hypertension
- Tobacco dependence
- Type 2 diabetes
- Class 1 obesity (BMI 34)
- Depression
- Hyperlipidemia
- Von Willebrand disease
- Polycythemia vera
- Right subdural hematoma from fall requiring neurosurgical intervention (01/29/2021)
- Iliac artery thrombosis
- Cerebral hemorrhage
- Chronic kidney disease stage II (Cr 1.2 preop)
- Pulmonary hypertension
- Hard of hearing
- 2004
- Tonsillectomy
- Right L4-L5 IL�LAUREN (02/01/2022)
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
-Acute postop blood loss/anemia (stable without transfusion)
-Acute postop atelectasis/left pleural effusion
-Acute postop pulmonary insufficiency
-Acute postop hypovolemia with subsequent hypervolemia
-Acute postop somnolence, resolved with holding narcotics/sedatives
Discussed patient care with: Cardiology, Nursing, Respiratory Therapy, Pharmacy and Care Team
Subjective
-
Date of Service: March 09, 2025
Pt c/o mild incisional pain, otherwise feels well, appreciative of the care here @ [facility]
Objective Data
-
Lab Results
03/09/25 03:49
03/09/25 04:08
PT 17.4 Sec (11.4-14.6) H 03/04/25 11:36
INR 1.40 03/04/25 11:36
APTT 33.3 Sec (23.4-35.0) 03/04/25 11:36
Vital Signs
Vital Signs
Temp Pulse Resp BP Pulse Ox
98 F 82 18 116/62 100
03/09/25 04:00 03/09/25 04:00 03/08/25 20:00 03/09/25 04:00 03/09/25 04:00
CT Intake/Output/Weight
03/08/25 03/08/25 03/09/25
06:59 18:59 06:59
Intake Total 535.9 / 1072.6 1490.8 / 1590.8 100 / 1590.8
Output Total 1380 / 2360 1180 / 1610 430 / 1610
Balance -844.1 / -1287.4 310.8 / -19.2 -330 / -19.2
SaO2: 98 (2L)
Physical Exam
-
General: Awake, Oriented and AOx3
Cardiovascular: Regular rate & rhythm, No Murmurs, No Rub and No Gallop
Respiratory: Decreased Breath Sounds (at bases, otherwise clear)
Sternum: Stable
Incision: Clean, Dry, Intact and Dressing Intact
Extremities: Other (+trace edema)
Data Reviewed
-
Lab Results: Results Reviewed
Medications: Active Meds Reviewed
Chest X-Ray: Report Reviewed and Image Reviewed
ECG: Report Reviewed and Image Reviewed
[2025-03-09] MEDS: TYLENOL 975 MG PO ×3 (06:02→19:49)
[2025-03-09] MEDS: ULTRAM 25 MG PO ×2 (06:02→14:00)
--- NOTE | 2025-03-09 08:05 | PTCARENOTE ---
Patient received oob in chair, dozing but arousable and appropriate. NSR via cm, Sao2 @ 98% on 2lnc. RIJ Cordis w/kvo infusing. Epicardial A+V wires insulated to chest wall. All procedural sites stable. Patient bullock catheter d/c'd earlier this am,
denies urge. Patient updated to plan of care for the day, in agreement. See work list for full assessment and interventions performed.
[2025-03-09 08:23] LABS: Glucose - Point of Care 151 mg/dl (70-99)
[2025-03-09] MEDS: LANTUS 0.1 UNITS SC ×2 (08:50→21:10)
[2025-03-09] MEDS: NOVOLOG FLEXPEN-LOW RESISTANCE 1 UNITS SC (08:50)
[2025-03-09] MEDS: LASIX 20 MG IV ×2 (08:51→19:48)
[2025-03-09] MEDS: WELLBUTRIN XL (24 hour extended release) 150 MG PO (08:51)
[2025-03-09] MEDS: WELLBUTRIN REGULAR RELEASE 300 MG PO (08:51)
[2025-03-09] MEDS: SENOKOT 8.6 MG PO ×2 (08:51→19:48)
[2025-03-09] MEDS: PROTONIX 40 MG PO (08:51)
[2025-03-09] MEDS: MUCINEX 600 MG PO ×2 (08:51→19:48)
[2025-03-09] MEDS: FARXIGA 10 MG PO (08:51)
[2025-03-09] MEDS: HYDREA 1500 MG PO (08:52)
[2025-03-09] MEDS: MAGNESIUM OXIDE 400 MG PO ×2 (08:52→19:49)
[2025-03-09] MEDS: LOW STRENGTH ASPIRIN 81 MG PO (08:52)
[2025-03-09] MEDS: KCL 20 MEQ PO ×2 (08:52→19:48)
[2025-03-09] MEDS: XARELTO 20 MG PO (08:52)
[2025-03-09] MEDS: PACERONE 200 MG PO ×3 (08:52→21:08)
[2025-03-09] MEDS: MILK OF MAGNESIA 30 ML PO (09:47)
[2025-03-09] MEDS: TUMS CHEWABLE TABLET 400 MG PO (09:48)
--- NOTE | 2025-03-09 12:02 | W.PN.CARDCBS ---
Today's Communication / Plan
-
Continues postoperative supportive care and rehab efforts
Continue diuresis
Impression / Plan
-
PCP: Holli Gunn
Primary Testing Lead: Dr. Ayers
Impression:
Admitted prior to planned MVR for Xarelto to Heparin bridge 02/28/25
s/p radical MV ring repair with new cords x2 at the posterior leaflet for severe MR with possible rheumatic component 03/04/25
Left atrial appendage exclusion 45 mm 03/04/2025
Postop right bundle branch block
Chronic HFpEF
Nonobstructive coronary artery disease
Type 2 diabetes on insulin
Hypertension
Hyperlipidemia
History of von Willebrand's disease
Polycythemia vera/JAK2 mutation
History of CVA
History of pulmonary embolism/DVT, on chronic Xarelto 10mg daily
History of subdural hematoma status post craniotomy at [facility]
Severe obstructive sleep apnea, noncompliant with CPAP
Pulmonary nodules with restrictive/obstructive lung disease
Tobacco use
Major depressive disorder
Chronic insomnia
GERD
Obesity
Left and right heart catheterization 01/06/2025: Nonobstructive coronary artery disease. HEMODYNAMICS : (mmHg) RA (m) : 16; RV (s/d,m) : 63/11, 60; PA (s/d, m) : 63/27, 42; PCWP (m) : 20; PA saturation: 65.7% on room air; AO saturation: 84.9% on
room air; RA saturation: 66.5% on room air; Cardiac Output : 5.20 L/min by Kavon calculate; Cardiac Index : 2.58 L/min/m-2 by Kavon calculation; Systemic vascular resistance: 1277 dsc^(-5); Pulmonary vascular resistance: 3.85 curtis unit; Heart rate:
75 bpm; AO (s/d) : 146/80; LVEDP : 24; No significant gradient across the aortic valve to suggest aortic stenosis.
ECHO 10/16/20: EF 60-65%, mod cLVH, mild MR, mild TR, PAP 45mmHg
Echo 08/12/2024: EF 69%. Moderate concentric LVH. Stage II DD. Moderate to severe MR with markedly dilated left atrium. Dilated right heart with preserved RV systolic function. Moderate tricuspid regurgitation with PAP 68 to 73 mmHg
SHAVON 12/26/2024: EF 60 to 65%. Mild concentric LVH. Thickened restricted mitral leaflets with reduced excursion suggestive of��rheumatic mitral valve disease. Mitral sclerosis without stenosis; mean mitral�valve gradient 3 mmHg.��Severe central mitral
regurgitation with severely dilated left atrium.���Moderate tricuspid regurgitation. Estimated pulmonary artery pressure is 50��mmHg assuming right atrial pressure of 3 mmHg.
Post surgery SHAVON 03/04/2025: Mitral valve repair with 30 mm annuloplasty ring into neocords as well as cleft closure. With ring well-seated with no paravalvular leak and trivial residual mitral regurgitation. Mean gradient 2. s/p left atrial
appendage occlusion with clip well-seated no flow through the left atrial appendage remnant. Normal LV size and function. Mild to moderate TR.
Echo 03/07/2025: pending
Plan:
s/p Radical mitral valve repair [resection of P1 P2 extremely thickened cords that was tethering down the posterior leaflet, placement of new cords x 2 the posterior leaflet, cleft closure at P1 P2 and P2 P3 as well as A2 A3, 30 mm annuloplasty
ring]; Left atrial appendage exclusion with [address] Tineo on 03/04/25, pod #3
-Improved O2 requirements now on room air
-Repeat echo on 03/07 showed MV repair to be intact without significant MR, PG/MG of 16/8 mmHg. LVEF 70-75%, probable moderate TR
-Off dobutamine. Continue midodrine for blood pressure support.
- Continue diuresis
-Chest tube management per CT surgery
- Continue PT efforts and incentive spirometry
-Patient has a history of hypercoagulable state and prior PE/DVT�Xarelto resumed 03/06/2025.
HPI 03/04/2025:
This is a 59-year-old female who has a complex list of comorbidities including hypercoagulable disorder that resulted in a previous CVA and pulmonary embolism secondary to hypercoagulable disorder and polycythemia vera. She also has mixed pathology
mitral valve disease and also complex social history. She was offered mitral valve repair with a higher than average likelihood of replacement given the valve pathology. Due to her history of CVAs and coagulopathy, her left atrial appendage will
be ligated at time of surgery.
Progress Note - Testing Lead
Subjective
Date of Service: March 09, 2025
Seen and examined. Patient lying supine appears comfortable on room air. States that she has had some ambulation from bed to commode. Denies chest pain or pressure. No events overnight.
Objective
Labs:
03/09/25 03:49
03/09/25 04:08
Labs
Hgb 9.3 g/dL (12.0-16.0) L 03/09/25 03:49
Hct 28.1 % (37.0-47.0) L 03/09/25 03:49
Plt Count 265 10^3/uL (130-400) 03/09/25 03:49
PT 17.4 Sec (11.4-14.6) H 03/04/25 11:36
INR 1.40 03/04/25 11:36
APTT 33.3 Sec (23.4-35.0) 03/04/25 11:36
Sodium 136 mmol/L (135-145) 03/09/25 04:08
Potassium 4.5 mmol/L (3.5-5.1) 03/09/25 04:08
BUN 25 mg/dl (7-17) H 03/09/25 04:08
Creatinine 0.9 mg/dL (0.6-1.0) 03/09/25 04:08
Glucose 111 mg/dl (70-99) H 03/09/25 04:08
Vital Signs and I&O:
Vital Signs
Temp Pulse Resp BP Pulse Ox
98.6 F 82 15 118/67 94
03/09/25 08:04 03/09/25 11:00 03/09/25 08:04 03/09/25 09:38 03/09/25 09:38
Vital Signs
Temp Pulse Resp BP Pulse Ox
98.6 F 82 15 118/67 94
03/09/25 08:04 03/09/25 11:00 03/09/25 08:04 03/09/25 09:38 03/09/25 09:38
Intake & Output
03/07/25 03/08/25 03/09/25 03/10/25
06:59 06:59 06:59 06:59
Intake Total 1142.6 / 1142.6 1049.9 / 1072.6 1610.8 / 1620.8 520 / 520
Output Total 2525 / 2525 2315 / 2360 1675 / 1675 325 / 325
Balance -1382.4 / -1382.4 -1265.1 / -1287.4 -64.2 / -54.2 195 / 195
Physical Exam
Physical Exam
GEN: No distress, awake, Ox3
HEENT: mmm
LUNGS: Mildly decreased breath sounds at bases CTA, no wheezes/rales
CV: Reg, S1/S2, no murmur, rub or gallop
Chest: Sternotomy incision well-approximated without evidence of infection no rocking or clicking
ABD: soft, BS+, NT/ND
EXT: +edema- Much better when compared to Monday
--- NOTE | 2025-03-09 12:07 | PTCARENOTE ---
VS obtained, assessment stable. Patient resting comfortably, dozing intermittently.
[2025-03-09] MEDS: NSS 500 IV (12:37)
[2025-03-09] MEDS: NOVOLOG FLEXPEN-LOW RESISTANCE SC ×2 (13:37→17:45)
[2025-03-09] MEDS: ZOFRAN 4 MG IV (16:07)
--- NOTE | 2025-03-09 16:25 | PTCARENOTE ---
VS obtained, assessment unchanged. Patient oob in chair, resting comfortably. States pain controlled, c/o mild nausea - medicated for such.
[2025-03-09 17:46] LABS: Glucose - Point of Care 108 mg/dl (70-99)
[2025-03-09] MEDS: REGLAN 10 MG IV (19:48)
--- NOTE | 2025-03-09 20:00 | PTCARENOTE ---
assumed care of pt from previous RN. pt A&Ox4, resting in chair at time of assessment. SR w/ 1st degree AVB on tele-monitor. temp epicardial A/V wires insulated. POX 94-96% on RA. abd s/n, round, obese. +BS. pt c/o nausea & gas pain. order for
Reglan given. pt voiding clear, yellow colored urine in BSC. all surgical sites stable, CDI. R IJ cordis w/ KVO. PIV intact. see worklist for complete nursing assessment, interventions, VS, and I&Os.
[2025-03-09] MEDS: SEROQUEL 100 MG PO (21:08)
[2025-03-09] MEDS: LIPITOR 40 MG PO (21:08)
[2025-03-09 21:15] LABS: Glucose - Point of Care 174 mg/dl (70-99)
--- NOTE | 2025-03-09 23:30 | PTCARENOTE ---
pt had very large BM in BSC. unable to measure u/o mixed w/ stool. 1 small approximated urine amount charted in I&Os.
[2025-03-10] VITALS (11 sets, daily range): BP systolic 85–134; BP diastolic 59–75; PULSE 79; O2SAT 98; BMI 36.2
--- NOTE | 2025-03-10 00:30 | PTCARENOTE ---
assessment remains unchanged. VSS. pt had multiple loose/liquid BMs.
[2025-03-10 04:29] LABS: Hematocrit 27.8 % (37.0-47.0); Hemoglobin 9.3 g/dL (12.0-16.0); Mean Corp Hgb Conc. 33.5 g/dL (33.0-37.0); Mean Corpuscular Volume 120.3 fL (81.0-99.0); Platelet Count 305 10^3/uL (130-400); Red Cell Dist. Width 18.3 % (11.5-14.5)
[2025-03-10 04:57] LABS: Blood Urea Nitrogen 20 mg/dl (7-17); Calcium 8.5 mg/dl (8.4-10.2); Carbon Dioxide 29 mmol/L (22-30); Chloride 104 mmol/L (98-107); Estimated Creatinine Clearance 77 ml/min; Glucose 104 mg/dl (70-99); Magnesium 2.4 mg/dl (1.6-2.3); Potassium 4.4 mmol/L (3.5-5.1); Sodium 137 mmol/L (135-145); eGFR > 60.00
--- NOTE | 2025-03-10 05:38 | W.PN.CT ---
Today's Communication / Plan
-
Plan:
-No major issues overnight. Hemodynamically and neurologically intact
-Weaned off dobutamine 03/08, ankita and a-lined d/c'd after
-Restarted on Xarelto for her Polycythemia vera with hypercoagulable state s/p hx of b/l PE on 03/06
-Postop hypotension has improved, on Midodrine prn. BB on hold
-Repeat echo on 03/07 showed MV repair to be intact without significant MR, PG/MG of 16/8 mmHg. LVEF 70-75%, probable moderate TR
-Cont. current meds (ASA, Xarelto, Hydroxyurea, Lipitor, Farxiga, Wellbutrin, Amiodarone). Holding BB while on dobutamine, will wean dobutamine
-Holding narcotics/sedatives d/t postop somnolence
-Mag oxide placed on hold, mg 2.4
-D/C'd bullock yesterday @ 0630, voiding spontaneously. Cont. diuresis, wt up 10 lbs from preop
-Encourage use of IS
-OOB into chair/Ambulate
-PT following and recommend SNF/acute rehab placement (previously resided in a retirement/retirement and currently living in a trailer with friend, to move into her own apartment on 03/26/25)
-Wants to stay in-house and go to [place]
-D/C in 1-2 days
Assessment / Plan
-
Impression:
- s/p Radical mitral valve repair [resection of P1 P2 extremely thickened cords that was tethering down the posterior leaflet, placement of new cords x 2 the posterior leaflet, cleft closure at P1 P2 and P2 P3 as well as A2 A3, 30 mm annuloplasty
ring]; Left atrial appendage exclusion with [address] Tineo on 03/04/25, pod #6
- Intraop SHAVON: LVEF preop was 55% with no significant wma. Following surgery, her EF remained the same at 60% with no new regional wall motion abnormalities. She had a moderate degree of tricuspid valve insufficiency preop secondary to some
annular dilatation. She had severe mitral valve insufficiency. Once off cardiopulmonary bypass the valve had only trace residual mitral valve insufficiency at the P2 P3 area likely at the cleft with no systolic anterior motion of the leaflets and
a mean gradient of 2 mmHg across the valve. Her TR remained the same at moderate.
- Severe mitral valve insufficiency, mixed pathology with type IIIa tethering of the posterior leaflet due to thickened cords of P1 and P2
- electively admitted on 02/28/2025 for Xarelto to IV heparin conversion, preadmission testing prior to mitral valve repair for severe mitral regurgitation, scheduled for with Dr. Tineo.
- JAK2 polycythemia vera with history of hypercoagulable complications requiring chronic daily DOAC
- Pulmonary embolism 2018 & 2023 w/thrombectomy
- Obstructive sleep apnea with CPAP use
- Hypertension
- Tobacco dependence
- Type 2 diabetes
- Class 1 obesity (BMI 34)
- Depression
- Hyperlipidemia
- Von Willebrand disease
- Polycythemia vera
- Right subdural hematoma from fall requiring neurosurgical intervention (01/29/2021)
- Iliac artery thrombosis
- Cerebral hemorrhage
- Chronic kidney disease stage II (Cr 1.2 preop)
- Pulmonary hypertension
- Hard of hearing
- 2004
- Tonsillectomy
- Right L4-L5 IL�LAUREN (02/01/2022)
- Cautery of duodenal ectasia, stomach ectasia at [facility] (2022)
-Acute postop blood loss/anemia (stable without transfusion)
-Acute postop atelectasis/left pleural effusion
-Acute postop pulmonary insufficiency
-Acute postop hypovolemia with subsequent hypervolemia
-Acute postop somnolence, resolved with holding narcotics/sedatives
Discussed patient care with: Cardiology, Nursing, Respiratory Therapy, Pharmacy and Care Team
Subjective
-
Date of Service: March 10, 2025
Pt c/o mild incisional pain, otherwise feels well. Ambulating with PT
Objective Data
-
Lab Results
03/10/25 04:17
03/10/25 04:17
PT 17.4 Sec (11.4-14.6) H 03/04/25 11:36
INR 1.40 03/04/25 11:36
APTT 33.3 Sec (23.4-35.0) 03/04/25 11:36
Vital Signs
Vital Signs
Temp Pulse Resp BP Pulse Ox
98 F 81 22 134/65 100
03/10/25 00:00 03/10/25 05:00 03/10/25 00:00 03/10/25 04:20 03/10/25 05:00
CT Intake/Output/Weight
03/09/25 03/09/25 03/10/25
06:59 18:59 06:59
Intake Total 120 / 1620.8 790 / 840 50 / 840
Output Total 495 / 1675 675 / 1275 600 / 1275
Balance -375 / -54.2 115 / -435 -550 / -435
SaO2: 100 (CPAP)
Physical Exam
-
General: Awake, Oriented and AOx3
Cardiovascular: Regular rate & rhythm, No Murmurs, No Rub and No Gallop
Respiratory: Decreased Breath Sounds (at bases, otherwise clear )
Sternum: Stable
Incision: Clean, Dry, Intact and Dressing Intact
Extremities: Other (+trace edema)
Data Reviewed
-
Lab Results: Results Reviewed
Medications: Active Meds Reviewed
Chest X-Ray: Report Reviewed and Image Reviewed
ECG: Report Reviewed and Image Reviewed
[2025-03-10] MEDS: TYLENOL 975 MG PO ×2 (05:44→22:12)
[2025-03-10] MEDS: CALCIUM GLUCONATE 130 MG IV (06:36)
[2025-03-10 07:50] LABS: Glucose - Point of Care 119 mg/dl (70-99)
--- NOTE | 2025-03-10 08:15 | PN.DE.MGMTRT ---
Insulin Management
- -
03/10/2025: Diabetes Management follow up
Patient admitted 02/28 for severe mitral valve regurgitation, work up for OR. PMH PE, MARIANNA w CPAP, HTN, diabetes, HLD, Von Willebrand disease, JAK2 polycythemia vera, subdural hematoma, cerebral hemorrhage, CKD II, mitral valve regurgitation, anxiety,
depression, suicidal ideation and attempt, PTSD. Prior to admission was taking Farxiga 10 mg daily, Basaglar 10 units BID and Ozempic 5mg weekly. A1C is 6.1%, Cr 0.9, eGFR >60 today.
Patient is awake, alert, oriented, conversant while sitting in a chair, able to discuss diabetes care.
POD # 6 s/p mitral valve repair, doing well. Transitioned off insulin infusion on 03/07.
yesterday Glucose range 108 to 151, fasting 104 V, 119 POC this AM.
Will make no changes to current regimen: Lantus 10 units BID (takes Basaglar 10 units BID) and Farxiga 10mg daily.
Instructed patient o resume Ozempic upon discharge home.
Discussed with nurse. Will cont to follow.
Diabetes History
- -
Type of Diabetes: 2 requiring insulin
Pre-Admission Diabetes Regimen
03/10/25
04:17
Creatinine 0.9
Lab Results
Hemoglobin A1c 6.1 % (4.0-5.6) H 03/01/25 06:04
Insulin Pump Settings
IP Diabetes Regimen
03/09/25 03/09/25 03/09/25
08:20 17:43 21:09
Glucose
POC Glucose 151 H 108 H 174 H
03/10/25 03/10/25
04:17 07:49
Glucose 104 H
POC Glucose 119 H
Meal type: Dinner
Meal type: Breakfast
Amount consumed: 75%
Amount consumed: 50%
Patient Education
--- NOTE | 2025-03-10 08:18 | PTCARENOTE ---
assumed care of pt from previous shift RN, sinus rhythm on tele, + peripheral pulses, trace edema noted. Lungs diminished, pox 95% on RA, coughing and deep breathing encouraged. +bs, tolerating PO intake, voids spontaneously. Cordis and PIV flush
easily. Plan of care reviewed and questions encouraged.
[2025-03-10] MEDS: HYDREA 1500 MG PO (08:36)
[2025-03-10] MEDS: LOW STRENGTH ASPIRIN 81 MG PO (08:36)
[2025-03-10] MEDS: WELLBUTRIN REGULAR RELEASE 300 MG PO (08:36)
[2025-03-10] MEDS: PACERONE 200 MG PO ×3 (08:36→22:13)
[2025-03-10] MEDS: XARELTO 20 MG PO (08:36)
[2025-03-10] MEDS: WELLBUTRIN XL (24 hour extended release) 150 MG PO (08:36)
[2025-03-10] MEDS: MUCINEX 600 MG PO ×2 (08:36→19:30)
[2025-03-10] MEDS: NOVOLOG FLEXPEN-LOW RESISTANCE SC ×3 (08:37→17:27)
[2025-03-10] MEDS: FARXIGA 10 MG PO (08:37)
[2025-03-10] MEDS: LASIX 20 MG IV ×2 (08:37→19:30)
[2025-03-10] MEDS: PROTONIX 40 MG PO ×2 (08:37→19:30)
[2025-03-10] MEDS: KCL 20 MEQ PO ×2 (08:37→19:30)
[2025-03-10] MEDS: SENOKOT PO ×2 (08:37→19:30)
[2025-03-10] MEDS: TOPROL XL 25 MG PO (08:37)
[2025-03-10] MEDS: LANTUS 0.1 UNITS SC ×2 (08:38→22:14)
--- NOTE | 2025-03-10 10:39 | CON.MR ---
Documented by User: Paulette Euceda MD, Resident 03/11/25 10:09
Consultation
Consultation Request
Date/Time Consultation Requested: 03/10/2025
Date/Time Consultation Performed: 03/11/2025
Requesting Provider: Lashonda Alatorre
Performing Provider: Dr. Mcgregor
Reason for Consultation: Acute rehab eval
Medical History
-
Chief Complaint: Elective mitral valve repair
History of Present Illness:
Ms. Regan is a 59-year-old female with extensive past medical history including MARIANNA on CPAP, former tobacco use, DM type II, PCV, von Willebrand disease, iliac artery thrombosis, history of cerebral hemorrhage from fall, CVA (2021), CKD 2,
pulmonary hypertension, history of PE x 2 (thrombectomy with 2nd episode), hypertension and hyperlipidemia who presented for mitral valve repair. Patient known to the cardiothoracic surgery service, with last visit on 02/[address] Tineo. She
currently lives in a correction. Recent transesophageal echo on 12/26/2024 showed thickened restrictive mitral leaflets with reduced excursion suggestive of rheumatic mitral valve disease. There was also severe central mitral regurgitation with
severely dilated left atrium. Of note, prior transthoracic echo in July 2024 also showed moderate�severe mitral regurgitation. She presented to the hospital here at on 02/28/2025 for elective radical mitral valve repair with a left atrial
appendage exclusion. She was bridged from Xarelto to IV heparin prior to the procedure. She had procedure on 03/04 and there were no immediate complications, and the patient was transferred to the CVICU postoperatively. She was successfully
extubated on 03/04 and transition to CPAP patient required vasopressors and was slowly weaned off. On 03/06 patient was found to be lethargic and hypoxic on ABG patient was treated with BiPAP and continued diuresis. She was also transition back to
Xarelto on 03/06. Repeat echo on 03/07 showed MV repair to be intact without significant regurgitation. On 03/08 patient was completely weaned off vasopressors.
Of note, previously resided in a retirement/correction and currently living in a trailer with friend, to move into her own apartment on 03/26/25 with 1 TRICE.
Past Medical History
Past Medical History: CVA (Hemorrhagic), HTN, Hypercholesterolemia, NIDDM, Renal Failure (CKD 2) and Other (MARIANNA, polycythemia vera, violent Willebrand's disease, iliac artery thrombosis, pulmonary hypertension, PE)
Past Surgical History: Tonsilectomy and Other (Subdural hematoma evacuation 01/2021)
Procedure History:
Right L4-L5 IL�LAUREN (02/01/2022)
Cautery of duodenal ectasia stomach ectasia at [facility] (2022)
Family History
Family History: Reviewed & Not Pertinent
Social History
Functional Level Premorbidity:
Independent for all activities.
Ambulates with cane
Current Funct Level: Ambulation, Transfer, UE/LE Dressing:
Transfer: Max a
Ambulation: 20 feet with RW mod a
ADL: Grooming set up, toileting min a
Tobacco: Smoker (Occasional)
Alcohol: None
Drug: None
Personal: Single
Living: With Roomate (With friend)
Is 24 hour care available: No
Number of Floors: 1
# Steps to Enter: 4
# Steps to Second Floor: -
Potential First Floor Set Up: Yes
Driving: No
Employment: Not Employed
Allergies / Home Medications
Allergy/AdvReac Type Severity Reaction Status Date / Time
No Known Allergies Allergy Verified 01/06/25 07:41
�Medication �Instructions �Recorded �Confirmed �Last Taken �Type
clonazepam 1 mg tablet 3 mg PO TID Mental Health/Anxiety 10/08/20 02/28/25 02/28/25 History
hydroxyurea 500 mg capsule 1,500 mg PO DAILY POLYCYTHEMIA VERA 10/08/20 02/28/25 02/28/25 History
rivaroxaban 20 mg tablet (Xarelto) 20 mg PO DAILY Blood clot 10/08/20 02/28/25 02/28/25 08:00 History
prevention/tx
atorvastatin 40 mg tablet 40 mg PO HS High cholesterol 01/12/21 02/28/25 02/26/25 History
bupropion HCl 150 mg 24 hr tablet, 150 mg PO DAILY mental health 06/15/22 02/28/25 02/26/25 History
extended release (Wellbutrin XL)
dapagliflozin propanediol 10 mg 10 mg PO DAILY Heart 06/15/22 02/28/25 02/28/25 History
tablet (Farxiga) Failure/DIABETES
metoprolol succinate 100 mg 50 mg (1/2 x 100 mg) PO DAILY #30 06/19/22 02/28/25 02/28/25 Rx
tablet,extended release 24 hr tabs
bupropion HCl 100 mg tablet 300 mg PO DAILY Mental 12/26/24 02/28/25 02/26/25 History
Health/Anxiety
cholecalciferol (vitamin D3) 10 20 mcg PO DAILY Supplement 12/26/24 02/28/25 02/28/25 History
mcg (400 unit) chewable tablet
(Vitamin D3)
famotidine 20 mg tablet 20 mg PO PRN PRN GERD 12/26/24 02/28/25 Unknown History
fluticasone propionate 50 1 spray intranasal DAILYPRN PRN as 12/26/24 02/28/25 01/04/25 08:00 History
mcg/actuation nasal patient needs it
spray,suspension
insulin glargine 100 unit/mL (3 10 unit SC BID Diabetes 12/26/24 02/28/25 02/27/25 History
mL) subcutaneous pen (Basaglar
KwikPen U-100 Insulin)
magnesium 200 mg tablet 400 mg PO DAILY Supplement 12/26/24 02/28/25 12/26/24 06:00 History
melatonin 10 mg tablet 10 mg PO HS Sleep 12/26/24 02/28/25 02/26/25 History
pantoprazole 40 mg tablet,delayed 40 mg PO BID Gastrointestinal Issue 12/26/24 02/28/25 02/28/25 History
release
quetiapine 100 mg tablet (Seroquel) 100 mg PO HS Mental Health/Anxiety 12/26/24 02/28/25 02/26/25 History
semaglutide 0.25 mg or 0.5 mg (2 0.5 mg SC QWEEK Diabetes 12/26/24 02/28/25 02/26/25 History
mg/3 mL) subcutaneous pen injector
(Ozempic)
zolpidem 12.5 mg tablet,extended 12.5 mg PO HS Sleep 12/26/24 02/28/25 02/26/25 History
release,multiphase
furosemide 40 mg tablet 60 mg (1.5 x 40 mg) PO DAILY Fluid 01/06/25 02/28/25 02/28/25 Rx
retention/Swelling #0 tabs
Review Of Systems
-
History Source: Patient
Constitutional: Reports No Symptoms; Denies Fever or Fatigue
Eye: Reports Blurry Vision (Occasional); Denies Pain, Tearing or Visual Field Cut
EENT: Reports No Symptoms; Denies Tearing, Sore Throat or Runny Nose
Respiratory: Reports No Symptoms; Denies Cough or Trouble Breathing
Cardiac: Reports Diaphoresis (With activity); Denies Chest Pain or Palpitations
Abdomen/GI: Reports No Symptoms; Denies Abdominal Pain, Nausea, Vomiting, Diarrhea or Constipated
: Reports No Symptoms; Denies Dysuria or Frequency
Musculoskeletal: Reports No Symptoms; Denies Joint Pain, Joint Swelling or Muscle Pain
Integumentary: Reports No Symptoms
Neurological: Reports No Symptoms; Denies Dizzy, Headache, Weakness or Numbness
Physical Exam
Active Medications
Generic Name Dose Route Start Last Admin
Trade Name Freq PRN Reason Stop Dose Admin
Acetaminophen 650 mg 03/04/25 11:33
Acetaminophen 325 Mg Tablet PO 04/01/25 11:32
Q4HPRN PRN
mild pain,headache,temp >101F
Acetaminophen 975 mg 03/04/25 14:00 03/10/25 05:44
Acetaminophen 325 Mg Tablet PO 04/01/25 13:59 975 mg
TID@0600,1400,2000 REINIER Administration
Amiodarone HCl 200 mg 03/04/25 16:00 03/10/25 08:36
Amiodarone 200 Mg Tablet PO 04/01/25 15:59 200 mg
TID REINIER Administration
Aspirin 81 mg 03/05/25 08:00 03/10/25 08:36
Aspirin 81 Mg Chewable Tablet PO 04/02/25 07:59 81 mg
DAILY REINIER Administration
Atorvastatin Calcium 40 mg 02/28/25 22:00 03/09/25 21:08
Atorvastatin (Lipitor) 40 Mg Tablet PO 03/28/25 21:59 40 mg
HS REINIER Administration
Bisacodyl 10 mg 03/04/25 11:33
Bisacodyl 10 Mg Rectal Suppository RECTAL 04/01/25 11:32
DAILYPRN PRN
constipation
Bupropion HCl 300 mg 03/01/25 08:00 03/10/25 08:36
Bupropion Regular Release 100 Mg Tablet PO 03/29/25 07:59 300 mg
DAILY REINIER Administration
Bupropion HCl 150 mg 03/01/25 08:00 03/10/25 08:36
Bupropion (24hr) Extended Release 150 Mg Tablet PO 03/29/25 07:59 150 mg
DAILY REINIER Administration
Calcium Carbonate 400 mg 03/09/25 08:40 03/09/25 09:48
Calcium Antacid 200 Mg (Calcium Carbonate 500 Mg) Chew Tablet PO 04/06/25 08:39 400 mg
Q4HPRN PRN Administration
indigestion
Clonazepam 1 mg 02/28/25 17:05 03/07/25 21:03
Clonazepam 1 Mg Tablet PO 03/28/25 15:59 1 mg
On Hold: 03/08/25 06:18 TID REINIER Administration
Comment: postop somnolence
Dapagliflozin 10 mg 03/07/25 09:45 03/10/25 08:37
Dapagliflozin (Farxiga) 10 Mg Tablet PO 04/04/25 09:44 10 mg
DAILY REINIER Administration
Dextrose 12.5 grams 03/07/25 12:00
Dextrose 50% (0.5 Grams/Ml) 50 Ml Syringe IV 04/04/25 11:59
[id number] PRN
hypoglycemia
Protocol
Furosemide 20 mg 03/10/25 08:00 03/10/25 08:37
Furosemide 20 Mg (10 Mg/Ml) 2 Ml Vial IV 04/07/25 07:59 20 mg
BID REINIER Administration
Glucagon 1 mg 03/07/25 12:00
Glucagon 1 Mg Vial IM 04/04/25 11:59
PRN PRN
hypoglycemia - no IV access
Protocol
Guaifenesin 600 mg 03/06/25 20:20 03/10/25 08:36
Guaifenesin 600 Mg Extended Release Tablet PO 04/03/25 20:19 600 mg
Q12 REINIER Administration
Hydroxyurea 1,500 mg 03/01/25 08:00 03/10/25 08:36
Hydroxyurea 500 Mg Capsule PO 03/29/25 07:59 1,500 mg
DAILY REINIER Administration
Potassium Chloride 20 meq in 50 mls @ 50 mls/hr 03/04/25 11:33 03/04/25 12:59
Kcl IV 04/01/25 11:32 50 mls
PRN PRN Administration
serum K+ less than 4 mmol/L
Sodium Chloride 500 mls @ 10 mls/hr 03/04/25 12:00 03/09/25 12:37
Nss IV 04/01/25 11:34 500 mls
CORDIS REINIER Administration
Insulin Glargine 10 units/ 0.1 mls @ 0 mls/hr 03/07/25 09:34 03/10/25 08:38
Device SC 04/04/25 09:33 0.1 mls
BID@0800,2200 REINIER Administration
As Directed
Insulin Aspart 0 units 03/07/25 12:00 03/10/25 08:37
Insulin Aspart Low Resistance 300 Units/3 Ml Pen.Injctr SC 04/04/25 11:59 Not Given
AC REINIER
Protocol
Ketorolac Tromethamine 15 mg 03/08/25 20:59
Ketorolac 15 Mg/Ml Injection IV 03/10/25 20:58
Q6HPRN PRN
moderate-severe pain
Magnesium Hydroxide 30 ml 03/04/25 11:33 03/09/25 09:47
Milk Of Magnesia 30 Ml Cup PO 04/01/25 11:32 30 ml
BIDPRN PRN Administration
if no BM in three days
Magnesium Oxide 400 mg 03/05/25 08:00 03/09/25 19:49
Magnesium Oxide 400 Mg Tablet PO 04/02/25 07:59 400 mg
On Hold: 03/10/25 05:38 BID REINIER Administration
Comment: mg 2.4
Metoprolol Succinate 25 mg 03/10/25 08:00 03/10/25 08:37
Metoprolol 25 Mg Extended Release Tablet PO 04/07/25 07:59 25 mg
DAILY REINIER Administration
Midodrine 5 mg 03/10/25 05:53
Midodrine 5 Mg Tablet PO 04/05/25 12:59
TID@0800,1300,1800 PRN
SBP </= 100
Ondansetron HCl 4 mg 03/04/25 11:33 03/09/25 16:07
Ondansetron 4 Mg/2 Ml Vial IV 04/01/25 11:32 4 mg
Q8HPRN PRN Administration
nausea/vomiting
Pantoprazole Sodium 40 mg 03/10/25 10:13
Pantoprazole 40 Mg Delayed Release Tablet PO 04/02/25 07:59
BID REINIER
Polyethylene Glycol 17 grams 02/28/25 14:32
Polyethylene Glycol Powder 17 Grams Packet PO 03/28/25 14:31
DAILYPRN PRN
constipation
Potassium Chloride 40 meq 03/04/25 11:33
Potassium Chloride 20 Meq Extended Release Tablet PO 04/01/25 11:32
PRN PRN
serum K+ less than 4 mmol/L
Potassium Chloride 20 meq 03/09/25 08:00 03/10/25 08:37
Potassium Chloride 20 Meq Extended Release Tablet PO 04/06/25 07:59 20 meq
BID REINIER Administration
Quetiapine Fumarate 100 mg 02/28/25 22:00 03/09/25 21:08
Quetiapine 100 Mg Tablet PO 03/28/25 21:59 100 mg
HS REINIER Administration
Rivaroxaban 20 mg 03/06/25 08:00 03/10/25 08:36
Rivaroxaban 20 Mg Tablet PO 04/03/25 07:59 20 mg
DAILY REINIER Administration
Sennosides 8.6 mg 03/04/25 20:00 03/10/25 08:37
Sennosides (Senokot) 8.6 Mg Tablet PO 04/01/25 19:59 Not Given
Q12 REINIER
Simethicone 80 mg 03/09/25 03:30 03/09/25 03:42
Simethicone 80 Mg Chewable Tablet PO 04/06/25 03:29 80 mg
QIDPRN PRN Administration
gas pain
Sodium Chloride 0 flush 03/04/25 12:00
Sodium Chloride 0.9% (Flush) Syringe IV 04/01/25 11:59
PER PROTOCOL REINIER
Tramadol HCl 25 mg 03/08/25 21:02 03/09/25 14:00
Tramadol Hcl 50 Mg Tablet PO 04/05/25 21:01 25 mg
Q6HPRN PRN Administration
mild pain
Tramadol HCl 50 mg 03/08/25 21:02
Tramadol Hcl 50 Mg Tablet PO 04/05/25 21:01
Q6HPRN PRN
moderate pain
Vital Signs
Temp Pulse Resp BP Pulse Ox
98.2 F 82 16 114/71 95
03/10/25 07:51 03/10/25 08:00 03/10/25 07:51 03/10/25 07:51 03/10/25 08:24
Height 5 ft 5 in
Actual Weight 98.8 kg
Body Mass Index (BMI) 36.2
Physical Exam
Physical Exam:
General Appearance/Observation: Well-developed, well-nourished individual in no apparent distress.
Pain/Comfort Assessment: Denies
Mood/Affect: Appropriate
Integumentary/Operative Site:
Pressure Ulcer: absent
Other Type of Wound: absent
Eyes: Conjunctiva/Lids: normal Pupils: pupils equal round and reactive to light and Accommodation
Ears/Nose/Throat: oral mucosa moist, throat clear. Lips/Teeth/Gums: normal
Neck: No muscle spasm or tenderness
Cardiovascular: Heart: regular rate, rhythm no murmur
Pulses: dorsalis pedis 2+ bilaterally
Respiratory: Respiratory Effort/Chest Expansion: normal Auscultation: Clear to auscultation bilaterally
Gastrointestinal: abdomen not tender, no distension, normal abdominal bowel sounds
Genitourinary: No Livingston
Rectal Exam: Deferred
Extremities: Edema: None Cyanosis: None Trophic changes: None
Neurology Exam:
Orientation: Alert, Oriented to self, Time, Place, situation
Memory: Intact immediately
Higher cortical function
Speech: Intact
Repetition: Intact
Comprehension: Intact
Two step command: Intact
Naming: Intact
Cranial Nerves:
CNII: Pupillary light reflex: Intact Visual Field: Intact
CN III, IV, : Extraocular muscles: Intact
CN V: Facial Sensation at Forehead: Intact , Maxilla: Intact, Mandible: Intact
CN VII: Facial movement: Symmetric
CN VIII: Hearing: Normal
CN IX/X: Speech & swallow: Normal, Position of Uvula: Midline
CN XI: Shoulder shrug: Symmetric
CN XII: Tongue protrusion: Midline
Sensory:
Light touch: Intact in bilateral upper and lower extremities
Pinprick: Intact in lower extremities
Proprioception: Intact
Reflexes:
Biceps: 2+ bilaterally
Brachioradialis: 2+ bilaterally
Triceps: 0 bilaterally
Patellar: 0 bilaterally
Achilles: 0 bilaterally
Babinski: Downgoing bilaterally
Clonus: None
Teo: Negative bilaterally
Cerebellar: Dysmetria/Ataxia: None
Musculoskeletal:
Motor: (Manual muscle scale 0-5)
Muscle SA EF WE EE FF FA HF KE DF EHL PF
Right 5 4 5 4 5 5 3 4 5 5 5
Left 5 4 5 4 5 5 3 4 5 5 5
Tone: Normal in all extremities
Range of Motion: Passively within normal limits in all extremities
Lab Results
03/10/25 04:17
03/10/25 04:17
WBC 5.1 10^3/uL (4.8-10.8) 03/10/25 04:17
Hgb 9.3 g/dL (12.0-16.0) L 03/10/25 04:17
Hct 27.8 % (37.0-47.0) L 03/10/25 04:17
MCV 120.3 fL (81.0-99.0) H 03/10/25 04:17
Plt Count 305 10^3/uL (130-400) 03/10/25 04:17
PT 17.4 Sec (11.4-14.6) H 03/04/25 11:36
INR 1.40 03/04/25 11:36
Sodium 137 mmol/L (135-145) 03/10/25 04:17
Potassium 4.4 mmol/L (3.5-5.1) 03/10/25 04:17
Chloride 104 mmol/L (98-107) 03/10/25 04:17
Carbon Dioxide 29 mmol/L (22-30) 03/10/25 04:17
BUN 20 mg/dl (7-17) H 03/10/25 04:17
Creatinine 0.9 mg/dL (0.6-1.0) 03/10/25 04:17
eGFR > 60.00 03/10/25 04:17
Glucose 104 mg/dl (70-99) H 03/10/25 04:17
Hemoglobin A1c 6.1 % (4.0-5.6) H 03/01/25 06:04
Calcium 8.5 mg/dl (8.4-10.2) 03/10/25 04:17
Magnesium 2.4 mg/dl (1.6-2.3) H 03/10/25 04:17
Total Bilirubin 0.7 mg/dl (0.2-1.3) 03/06/25 12:31
Direct Bilirubin 0.2 mg/dl (0.0-0.4) 03/01/25 06:04
AST 32 U/L (14-36) 03/06/25 12:31
ALT 19 U/L (0-35) 03/06/25 12:31
Alkaline Phosphatase 99 U/L (38-126) 03/06/25 12:31
Total Protein 5.0 g/dl (6.3-8.2) L 03/06/25 12:31
Albumin 3.0 g/dl (3.5-5.0) L 03/06/25 12:31
Diagnostic Results
As per HPI.
Assessment / Plan
Assessment
Ms Regan is a 59-year-old female who has a complex list of comorbidities including hypercoagulable disorder that resulted in a previous CVA and pulmonary embolism secondary to hypercoagulable disorder and polycythemia vera. She also has mixed
pathology mitral valve disease and also complex social history. She was admitted for mitral valve repair and her left atrial appendage will be ligated at time of surgery.
Plan
PM&R PT/OT to increase independence with ADLs, improve balance, coordination, endurance, strength, mobility, community reintegration, decreased burden of care on others and family education.
HTN: continue medications, monitor closely
HLD: Statin
Mitral valve insufficiency S/P radical mitral valve repair, left atrial appendage exclusion: Sternal precautions. Aspirin, statin, Xarelto, BP control. Monitor incision, pain control.
DM II: Accu-Cheks, insulin sliding scale, metformin, lispro, lantus.
MARIANNA: CPAP use.
Anemia: Likely multifactorial. Continue to monitor.
Skin: monitor for pressure sores/rashes/lesions.
Pain: acetaminophen or oxycodone as needed.
Bowel: Colace and Senna, PRN bisacodyl.
Bladder: Time void, PVRs, PRN straight cath.
GI Prophylaxis: Pantoprazole
DVT Prophylaxis: Xarelto
Safety: Continue to reinforce assistance with all transfers.
Code Status: Full code
Dispo: Acute Rehab
Functional and Medical Goals: Modified Independent with ADL�s, ambulation, transfers
Summary
-
Things that must be addressed in Hospital prior to discharge:
Patient must be stable on oral pain medications.
Blood pressure must be less than 180 systolic and 100 diastolic for 24 hours before being stable for transfer to SNF/acute rehab.
Please give blood pressure parameters.
Discharge Destination: Acute rehab, patient would benefit from PT/OT to increase independence with ADLs, improve balance, coordination, endurance, strength, mobility, community reintegration, decreased burden of care on others and family education.
Summary of recommendations:
- Discharge Destination: Acute rehab, patient would benefit from PT/OT to increase independence with ADLs, improve balance, coordination, endurance, strength, mobility, community reintegration, decreased burden of care on others and family education.
Will sign off, please re-consult if needed.
Thank you for allowing me to care for your patient. Please contact me with any questions or concerns.
Comments
-
This note was dictated using a voice recognition system. Please excuse any typographical errors from performance improvement manager. If you believe there are any discrepancies, please notify our office.

Documented by User: Rasta Mcgregor MD 03/11/25 22:30
Consultation
Consultation Request
Requesting Provider: Lashonda Alatorre
Medical History
Past Medical History
Past Medical History: CHF, GERD, HTN (Pulmonary), IDDM, Valvular Disease, Psychiatric (Depression) and Other (MARIANNA, polycythemia vera, violent Willebrand's disease, iliac artery thrombosis, PE, right subdural hematoma from fall requiring
neurosurgical intervention 2020, pneumonia, restless legs, back pain, arthritis)
Family History
Family History: CAD (Father at 59 from heart attack, sister with CAD and myocardial infarction), Cancer (Uncle with colon cancer), Diabetes (Most family members), Hypertension and Other (Sister with multiple sclerosis, brother passed from
IV drug abuse)
Physical Exam
Physical Exam
Physical Exam:
General Appearance/Observation: Well-developed, well-nourished female in no apparent distress.
Pain/Comfort Assessment: Denies
Mood/Affect: Appropriate
Integumentary/Operative Site: Sternal incision healing well. Drain sites scabbed and healing well.
Pressure Ulcer: absent
Eyes: Conjunctiva/Lids: normal Pupils: pupils equal round and reactive to light
Ears/Nose/Throat: oral mucosa moist, throat clear. Lips/Teeth/Gums: Edentulous
Neck: No muscle spasm or tenderness
Cardiovascular: Heart: regular rate, rhythm no murmur
Pulses: dorsalis pedis 1+ bilaterally
Respiratory: Respiratory Effort/Chest Expansion: normal Auscultation: Clear to auscultation bilaterally
Gastrointestinal: abdomen not tender, no distension, normal abdominal bowel sounds
Genitourinary: No [place]
Rectal Exam: Deferred
Extremities: Edema: Slight bilateral pedal edema cyanosis: None Trophic changes: None
Neurology Exam:
Orientation: Alert, Oriented to self, Time, Place, situation
Memory: Intact immediately
Comprehension: Intact
Two step command: Intact
Cranial Nerves:
CNII: Pupillary light reflex: Intact Visual Field: Intact
CN III, IV, : Extraocular muscles: Intact
CN V: Facial Sensation at Forehead: Intact , Maxilla: Intact, Mandible: Intact
CN VII: Facial movement: Symmetric
CN VIII: Hearing: Normal
CN IX/X: Speech & swallow: Normal, Position of Uvula: Midline
CN XI: Shoulder shrug: Symmetric
CN XII: Tongue protrusion: Midline
Sensory:
Light touch: Intact in bilateral upper and lower extremities
Reflexes:
Biceps: 2+ bilaterally
Brachioradialis: 2+ bilaterally
Triceps: 0 bilaterally
Patellar: 0 bilaterally
Achilles: 0 bilaterally
Babinski: Downgoing bilaterally
Clonus: None
Teo: Negative bilaterally
Cerebellar: Dysmetria/Ataxia: None
Musculoskeletal:Motor: (Manual muscle scale 0-5)
Muscle SA EF WE EE FF FA HF KE DF EHL PF
Right >3+ 5 >3+ 5 4 2 4 5 5 5
Left >3+ 5 >3+ 5 4 2 4 5 5 5
Tone: Normal in all extremities
Range of Motion: Passively within normal limits in all extremities
Assessment / Plan
Assessment
59 y/o F PMH (MARIANNA, polycythemia vera, violent Willebrand's disease, iliac artery thrombosis, pulmonary hypertension, PE, HTN, HLD, CVA, hypercoagulable disorder, renal failure, IDDM, depression, right subdural hematoma from fall requiring
neurosurgical intervention 2020, CHF, pneumonia, restless legs, back pain, arthritis, GERD) S/P 03/04/25 mitral valve repair and left atrial appendage ligation by Dr. Tineo at [facility] with ADL and ambulatory dysfunction.
Plan
PM&R PT/OT to increase independence with ADLs, improve balance, coordination, endurance, strength, mobility, community reintegration, decreased burden of care on others and family education.
Mitral valve insufficiency S/P radical mitral valve repair, left atrial appendage exclusion: Sternal precautions. Aspirin, statin, Xarelto, BP control. Monitor incision, pain control.
-Amiodarone postoperatively
HTN: Furosemide 40 mg daily, metoprolol XL 12.5 mg daily monitor closely
HLD: Statin
Insulin-dependent DM II: Accu-Cheks, insulin sliding scale, Lantus 10 units twice a day
Polycythemia vera: Hydroxyurea
Von Willebrand's disease with pulmonary embolism/CVA: Rivaroxaban
MARIANNA: CPAP use.
COPD: Mucinex
Chronic diastolic CHF: Metoprolol, Lasix, Farxiga
Postoperative anemia: Stable in the 9 range, monitor.
FEN: Hypokalemia: Potassium replacement on Lasix.
Depression: Klonopin 1 mg 3 times daily, Wellbutrin 450 mg daily, Seroquel
Skin: monitor for pressure sores/rashes/lesions.
Pain: acetaminophen or tramadol as needed.
Bowel: Colace and Senna, PRN bisacodyl.
Bladder: Time void, PVRs, PRN straight cath.
GI Prophylaxis: Pantoprazole twice daily
DVT Prophylaxis: Xarelto
Morbid obesity: Continue to prison classification counselor patient about diet adjustments to control obesity. Body habitus and increased force to move body and extremities causes further difficulty with functional tasks.
Safety: Continue to reinforce assistance with all transfers.
Code Status: Full code
Dispo: Acute Rehab
Functional and Medical Goals: Modified Independent with ADL�s, ambulation, transfers
Attending Statement: I performed a history and examined the patient today.� I reviewed the care plan with therapy, nursing, and the resident.� I agree with the history and ROS above as modified.� The physical exam and plan documented reflects my
examination and plan.��A total of 60 minutes were spent with the patient preparing for the evaluation, obtaining history, performing examination and evaluation, counseling, data review, case management, care coordination, order analyst, and EMR
documentation.�������
� � � � �
Summary
-
Discharge Destination: Acute rehab, patient would benefit from PT/OT to increase independence with ADLs, improve balance, coordination, endurance, strength, mobility, community reintegration, decreased burden of care on others and family education.
Will sign off, please re-consult if needed.
Thank you for allowing me to care for your patient. Please contact me with any questions or concerns.
--- NOTE | 2025-03-10 11:49 | CM ---
priced meds: Farxiga 10 mg QD- first month is $554 (of this she still owes $590 of her deductible) once the deductible is satisfied, then she pays 25% cost of the med for tier 3- or approx 140/month---Jardiance is also tier 3 med and the cost is the
same.
--- NOTE | 2025-03-10 12:55 | PTCARENOTE ---
VSS, pt tolerated PT/OT.
[2025-03-10 12:58] LABS: Glucose - Point of Care 132 mg/dl (70-99)
[2025-03-10] MEDS: NSS IV (13:55)
[2025-03-10] MEDS: TYLENOL PO (15:40)
[2025-03-10] MEDS: KLONOPIN 1 MG PO ×2 (16:11→22:12)
[2025-03-10] MEDS: MYLICON 80 MG PO ×2 (16:12→19:43)
--- NOTE | 2025-03-10 16:18 | PTCARENOTE ---
Cordis removed. Pacing wires cut by CT SANTANA.
--- NOTE | 2025-03-10 16:29 | CM ---
spoke to pt in room, PT/OT recomm acute rehab. referral faxed to [facility] , pt agreeable to this plan. awaiting bed avail .
[2025-03-10 17:15] LABS: Glucose - Point of Care 115 mg/dl (70-99)
--- NOTE | 2025-03-10 17:19 | W.PN.CARDCBS ---
Addendum entered and electronically signed by Katya Ayers DO 03/10/25 18:28:
I saw and examined the patient.
The Foreman Or Supervisor And Operator's note was reviewed and I agree with the note.
Comment: Patient was seen and examined and continues to slowly improved. Encouraging PT efforts with plan for eventual acute rehab, potentially [place]
GEN: No distress, awake, Ox3
HEENT: mmm
LUNGS: Mildly decreased breath sounds at bases CTA, no wheezes/rales
CV: Reg, S1/S2, no murmur, rub or gallop
Chest: Sternotomy incision well-approximated without evidence of infection no rocking or clicking
ABD: soft, BS+, NT/ND
EXT: trace edema
Plan:
s/p Radical mitral valve repair [resection of P1 P2 extremely thickened cords that was tethering down the posterior leaflet, placement of new cords x 2 the posterior leaflet, cleft closure at P1 P2 and P2 P3 as well as A2 A3, 30 mm annuloplasty
ring]; Left atrial appendage exclusion with [address] Tineo on 03/04/25, pod #6
-Improved O2 requirements now on room air , however felt a little more SOB today. wt down 2 lbs overnight
- Continue diuresis
-Repeat echo on 03/07/2025 showed MV repair to be intact without significant MR, PG/MG of 16/8 mmHg. LVEF 70-75%, probable moderate TR
-Has not needed midodrine for BP support, although BP did drop to 85/59 today, repeat 116/70. Beta sienna dose increased today to Toprol 25 mg daily
-Chest tube management per CT surgery
- Continue PT efforts and incentive spirometry
-Patient has a history of hypercoagulable state and prior PE/DVT�Xarelto resumed 03/06/2025
- Discharge planning initiated, acute rehab planned, potentially in-house at [place]
Original Note:
Today's Communication / Plan
-
cont diuresis
Impression / Plan
-
PCP: Holli Gunn
Primary High Man: Dr. Ayers
Impression:
Admitted prior to planned MVR for Xarelto to Heparin bridge 02/28/25
s/p radical MV ring repair with new cords x2 at the posterior leaflet for severe MR with possible rheumatic component 03/04/25
Left atrial appendage exclusion 45 mm 03/04/2025
Postop right bundle branch block
Chronic HFpEF
Nonobstructive coronary artery disease
Type 2 diabetes on insulin
Hypertension
Hyperlipidemia
History of von Willebrand's disease
Polycythemia vera/JAK2 mutation
History of CVA
History of pulmonary embolism/DVT, on chronic Xarelto 10mg daily
History of subdural hematoma status post craniotomy at [place]
Severe obstructive sleep apnea, noncompliant with CPAP
Pulmonary nodules with restrictive/obstructive lung disease
Tobacco use
Major depressive disorder
Chronic insomnia
GERD
Obesity
Left and right heart catheterization 01/06/2025: Nonobstructive coronary artery disease. HEMODYNAMICS : (mmHg) RA (m) : 16; RV (s/d,m) : 63/11, 60; PA (s/d, m) : 63/27, 42; PCWP (m) : 20; PA saturation: 65.7% on room air; AO saturation: 84.9% on
room air; RA saturation: 66.5% on room air; Cardiac Output : 5.20 L/min by Kavon calculate; Cardiac Index : 2.58 L/min/m-2 by Kavon calculation; Systemic vascular resistance: 1277 dsc^(-5); Pulmonary vascular resistance: 3.85 curtis unit; Heart rate:
75 bpm; AO (s/d) : 146/80; LVEDP : 24; No significant gradient across the aortic valve to suggest aortic stenosis.
ECHO 10/16/20: EF 60-65%, mod cLVH, mild MR, mild TR, PAP 45mmHg
Echo 08/12/2024: EF 69%. Moderate concentric LVH. Stage II DD. Moderate to severe MR with markedly dilated left atrium. Dilated right heart with preserved RV systolic function. Moderate tricuspid regurgitation with PAP 68 to 73 mmHg
SHAVON 12/26/2024: EF 60 to 65%. Mild concentric LVH. Thickened restricted mitral leaflets with reduced excursion suggestive of��rheumatic mitral valve disease. Mitral sclerosis without stenosis; mean mitral�valve gradient 3 mmHg.��Severe central mitral
regurgitation with severely dilated left atrium.���Moderate tricuspid regurgitation. Estimated pulmonary artery pressure is 50��mmHg assuming right atrial pressure of 3 mmHg.
Post surgery SHAVON 03/04/2025: Mitral valve repair with 30 mm annuloplasty ring into neocords as well as cleft closure. With ring well-seated with no paravalvular leak and trivial residual mitral regurgitation. Mean gradient 2. s/p left atrial
appendage occlusion with clip well-seated no flow through the left atrial appendage remnant. Normal LV size and function. Mild to moderate TR.
Echo 03/07/2025: Vigorous LV systolic function with LVEF 70 to 75%, status post mitral valve repair with 30 mm annuloplasty ring, peak/mean transmitral gradient 16/8 mmHg without significant MR. Probable moderate tricuspid regurgitation, PASP 46 mmHg
Plan:
s/p Radical mitral valve repair [resection of P1 P2 extremely thickened cords that was tethering down the posterior leaflet, placement of new cords x 2 the posterior leaflet, cleft closure at P1 P2 and P2 P3 as well as A2 A3, 30 mm annuloplasty
ring]; Left atrial appendage exclusion with [address] Tineo on 03/04/25, pod #6
-Improved O2 requirements now on room air , however felt a little more SOB today. wt down 2 lbs overnight
- Continue diuresis
-Repeat echo on 03/07/2025 showed MV repair to be intact without significant MR, PG/MG of 16/8 mmHg. LVEF 70-75%, probable moderate TR
-Has not needed midodrine for BP support, although BP did drop to 85/59 today, repeat 116/70. Beta sienna dose increased today to Toprol 25 mg daily
-Chest tube management per CT surgery
- Continue PT efforts and incentive spirometry
-Patient has a history of hypercoagulable state and prior PE/DVT�Xarelto resumed 03/06/2025
-telemetry personally reviewed: NSR first degree AVB
HPI 03/04/2025:
This is a 59-year-old female who has a complex list of comorbidities including hypercoagulable disorder that resulted in a previous CVA and pulmonary embolism secondary to hypercoagulable disorder and polycythemia vera. She also has mixed pathology
mitral valve disease and also complex social history. She was offered mitral valve repair with a higher than average likelihood of replacement given the valve pathology. Due to her history of CVAs and coagulopathy, her left atrial appendage will
be ligated at time of surgery.
Progress Note - High Man
Subjective
Date of Service: March 10, 2025
a little more SOB today
wt down 2 lbs overnight
Objective
Labs:
03/10/25 04:17
03/10/25 04:17
Labs
Hgb 9.3 g/dL (12.0-16.0) L 03/10/25 04:17
Hct 27.8 % (37.0-47.0) L 03/10/25 04:17
Plt Count 305 10^3/uL (130-400) 03/10/25 04:17
PT 17.4 Sec (11.4-14.6) H 03/04/25 11:36
INR 1.40 03/04/25 11:36
APTT 33.3 Sec (23.4-35.0) 03/04/25 11:36
Sodium 137 mmol/L (135-145) 03/10/25 04:17
Potassium 4.4 mmol/L (3.5-5.1) 03/10/25 04:17
BUN 20 mg/dl (7-17) H 03/10/25 04:17
Creatinine 0.9 mg/dL (0.6-1.0) 03/10/25 04:17
Glucose 104 mg/dl (70-99) H 03/10/25 04:17
Vital Signs and I&O:
Vital Signs
Temp Pulse Resp BP Pulse Ox
98.0 F 72 16 116/70 96
03/10/25 12:30 03/10/25 14:36 03/10/25 12:30 03/10/25 14:36 03/10/25 12:30
Vital Signs
Temp Pulse Resp BP Pulse Ox
98.0 F 72 16 116/70 96
03/10/25 12:30 03/10/25 14:36 03/10/25 12:30 03/10/25 14:36 03/10/25 12:30
Intake & Output
03/08/25 03/09/25 03/10/25 03/11/25
06:59 06:59 06:59 06:59
Intake Total 1049.9 / 1072.6 1610.8 / 1620.8 880 / 880 110 / 110
Output Total 2315 / 2360 1675 / 1675 1275 / 1275 1100 / 1100
Balance -1265.1 / -1287.4 -64.2 / -54.2 -395 / -395 -990 / -990
Physical Exam
Physical Exam
GEN: No distress, awake, Ox3
HEENT: supple, anicteric, mmm
LUNGS:decreased BS bases
CV: Reg, S1/S2, no murmur
ABD: soft, BS+, NT/ND
EXT: No edema
NEURO: Gross non-focal
SKIN: No rash
--- NOTE | 2025-03-10 19:56 | PTCARENOTE ---
assumed care of pt from previous RN. pt A&Ox4, resting in bed at time of assessment. SR w/ 1st degree AVB, occasional PACs. POX remains >96% on RA. abd s/n, +BS. pt c/o gas pain, indigestion. PRN order for gas pain given. all surgical sites stable,
CDI. PIV intact. see worklist for complete nursing assessment, interventions, VS, and I&Os.
[2025-03-10] MEDS: LIPITOR 40 MG PO (22:12)
[2025-03-10] MEDS: SEROQUEL 100 MG PO (22:12)
[2025-03-10 22:16] LABS: Glucose - Point of Care 135 mg/dl (70-99)
--- NOTE | 2025-03-10 23:00 | PTCARENOTE ---
report received from previous RN, walking rounds done. pt sleeping. VSS. SR w 1st degree AVB and PACs on monitor, HR 60s-70s. +peripheral pulses. POX 100% on CPAP. bilateral breath sounds present. abd s/n, +BS. all surgical sites stable. PIV intact
and patent. see worklist for full assesment, VS, and interventions.
[2025-03-11] VITALS (10 sets, daily range): BP systolic 87–119; BP diastolic 64–74; PULSE 76; O2SAT 97; BMI 35.7
--- NOTE | 2025-03-11 04:20 | PTCARENOTE ---
no changes in assessment, VSS. pt AAOx4. SR w 1st degree AVB, HR 60s. POX 100% on room air. all surgical sites stable. AM labs drawn and sent. pt sleeping between care.
--- NOTE | 2025-03-11 04:45 | W.PN.CT ---
Today's Communication / Plan
-
Plan:
-No major issues overnight. Hemodynamically and neurologically intact
-Weaned off dobutamine 03/08, ankita and a-lined d/c'd after
-Restarted on Xarelto for her Polycythemia vera with hypercoagulable state s/p hx of b/l PE on 03/06
-Postop hypotension has improved, on Midodrine prn. BB on hold
-Repeat echo on 03/07 showed MV repair to be intact without significant MR, PG/MG of 16/8 mmHg. LVEF 70-75%, probable moderate TR
-Cont. current meds (ASA, Xarelto, Hydroxyurea, Lipitor, Farxiga, Wellbutrin, Amiodarone). Holding BB while on dobutamine, will wean dobutamine
-Holding narcotics/sedatives d/t postop somnolence
-D/C'd bullock yesterday @ 0630, voiding spontaneously. Cont. diuresis, wt up
-Will transition to PO Lasix in preparation for [place]
-Senokot on hold for diarrhea yesterday
-Encourage use of IS
-OOB into chair/Ambulate
-PT following and recommend SNF/acute rehab placement (previously resided in a [facility] and currently living in a trailer with friend, to move into her own apartment on 03/26/25)
-Wants to stay in-house and go to [facility] [place]. Awaiting bed at [place]
-Likely d/c tomorrow
Assessment / Plan
-
Impression:
- s/p Radical mitral valve repair [resection of P1 P2 extremely thickened cords that was tethering down the posterior leaflet, placement of new cords x 2 the posterior leaflet, cleft closure at P1 P2 and P2 P3 as well as A2 A3, 30 mm annuloplasty
ring]; Left atrial appendage exclusion with [address] Tineo on 03/04/25, pod #7
- Intraop SHAVON: LVEF preop was 55% with no significant wma. Following surgery, her EF remained the same at 60% with no new regional wall motion abnormalities. She had a moderate degree of tricuspid valve insufficiency preop secondary to some
annular dilatation. She had severe mitral valve insufficiency. Once off cardiopulmonary bypass the valve had only trace residual mitral valve insufficiency at the P2 P3 area likely at the cleft with no systolic anterior motion of the leaflets and
a mean gradient of 2 mmHg across the valve. Her TR remained the same at moderate.
- Severe mitral valve insufficiency, mixed pathology with type IIIa tethering of the posterior leaflet due to thickened cords of P1 and P2
- electively admitted on 02/28/2025 for Xarelto to IV heparin conversion, preadmission testing prior to mitral valve repair for severe mitral regurgitation, scheduled for with Dr. Tineo.
- JAK2 polycythemia vera with history of hypercoagulable complications requiring chronic daily DOAC
- Pulmonary embolism 2018 & 2023 w/thrombectomy
- Obstructive sleep apnea with CPAP use
- Hypertension
- Tobacco dependence
- Type 2 diabetes
- Class 1 obesity (BMI 34)
- Depression
- Hyperlipidemia
- Von Willebrand disease
- Polycythemia vera
- Right subdural hematoma from fall requiring neurosurgical intervention (01/29/2021)
- Iliac artery thrombosis
- Cerebral hemorrhage
- Chronic kidney disease stage II (Cr 1.2 preop)
- Pulmonary hypertension
- Hard of hearing
- 2004
- Tonsillectomy
- Right L4-L5 IL�LAUREN (02/01/2022)
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
-Acute postop blood loss/anemia (stable without transfusion)
-Acute postop atelectasis/left pleural effusion
-Acute postop pulmonary insufficiency
-Acute postop hypovolemia with subsequent hypervolemia
-Acute postop somnolence, resolved with holding narcotics/sedatives
Discussed patient care with: Cardiology, Nursing, Respiratory Therapy, Pharmacy and Care Team
Subjective
-
Date of Service: March 11, 2025
Pt c/o mild incisional pain and diarrhea yesterday, states diarrhea has resolved
Objective Data
-
PT 17.4 Sec (11.4-14.6) H 03/04/25 11:36
INR 1.40 03/04/25 11:36
APTT 33.3 Sec (23.4-35.0) 03/04/25 11:36
Vital Signs
Vital Signs
Temp Pulse Resp BP Pulse Ox
98.1 F 62 18 94/65 100
03/11/25 03:51 03/11/25 04:00 03/11/25 03:51 03/11/25 03:51 03/11/25 04:00
CT Intake/Output/Weight
03/10/25 03/10/25 03/11/25
06:59 18:59 06:59
Intake Total 90 / 880 110 / 110
Output Total 600 / 1275 1150 / 2100 950 / 2100
Balance -510 / -395 -1040 / -1989 -950 / -1989
SaO2: 100 (RA)
Physical Exam
-
General: Awake, Oriented and AOx3
Cardiovascular: Regular rate & rhythm, No Murmurs, No Rub and No Gallop
Respiratory: Decreased Breath Sounds (at bases, otherwise clear)
Sternum: Stable
Incision: Clean, Dry, Intact and Dressing Intact
Extremities: No Edema
Data Reviewed
-
Lab Results: Results Reviewed
Medications: Active Meds Reviewed
Chest X-Ray: Report Reviewed and Image Reviewed
ECG: Report Reviewed and Image Reviewed
[2025-03-11 05:13] LABS: Blood Urea Nitrogen 22 mg/dl (7-17); Calcium 8.9 mg/dl (8.4-10.2); Carbon Dioxide 30 mmol/L (22-30); Chloride 103 mmol/L (98-107); Estimated Creatinine Clearance 69 ml/min; Glucose 84 mg/dl (70-99); Potassium 5.1 mmol/L (3.5-5.1); Sodium 135 mmol/L (135-145); eGFR > 60.00
[2025-03-11] MEDS: TYLENOL 975 MG PO (06:02)
[2025-03-11 07:31] LABS: Glucose - Point of Care 131 mg/dl (70-99)
[2025-03-11] MEDS: NOVOLOG FLEXPEN-LOW RESISTANCE SC (07:36)
[2025-03-11] MEDS: MUCINEX 600 MG PO (08:05)
[2025-03-11] MEDS: KCL 20 MEQ PO (08:06)
[2025-03-11] MEDS: WELLBUTRIN REGULAR RELEASE 300 MG PO (08:06)
[2025-03-11] MEDS: WELLBUTRIN XL (24 hour extended release) 150 MG PO (08:06)
[2025-03-11] MEDS: HYDREA 1500 MG PO (08:06)
[2025-03-11] MEDS: FARXIGA 10 MG PO (08:06)
[2025-03-11] MEDS: PACERONE 200 MG PO ×2 (08:06→15:48)
[2025-03-11] MEDS: XARELTO 20 MG PO (08:07)
[2025-03-11] MEDS: LOW STRENGTH ASPIRIN 81 MG PO (08:07)
[2025-03-11] MEDS: LASIX 40 MG PO (08:07)
[2025-03-11] MEDS: KLONOPIN 1 MG PO ×2 (08:07→15:48)
[2025-03-11] MEDS: PROTONIX 40 MG PO (08:07)
[2025-03-11] MEDS: LANTUS 0.1 UNITS SC (08:08)
[2025-03-11] MEDS: MYLICON 80 MG PO (08:09)
--- NOTE | 2025-03-11 08:12 | PN.DE.MGMTRT ---
Insulin Management
- -
03/11/2025: Diabetes Management follow up
Patient admitted 02/28 for severe mitral valve regurgitation, work up for OR. PMH PE, MARIANNA w CPAP, HTN, diabetes, HLD, Von Willebrand disease, JAK2 polycythemia vera, subdural hematoma, cerebral hemorrhage, CKD II, mitral valve regurgitation, anxiety,
depression, suicidal ideation and attempt, PTSD. Prior to admission was taking Farxiga 10 mg daily, Basaglar 10 units BID and Ozempic 5mg weekly. A1C is 6.1%, Cr 0.9, eGFR >60 today.
Patient is awake, alert, oriented, conversant while sitting in a chair, able to discuss diabetes care.
POD # 7 s/p mitral valve repair, doing well. Transitioned off insulin infusion on 03/07.
Yesterday Glucose range 115 to 135, fasting today 84 V, 131 POC this AM.
Will make no changes to current regimen: Lantus 10 units BID (takes Basaglar 10 units BID) and Farxiga 10mg daily with low corrective insulin.
Patient recommended for acute rehab at discharge.
Instructed patient to resume Ozempic upon discharge home.
Discussed with nurse. Will cont to follow
Diabetes History
- -
Type of Diabetes: 2 requiring insulin
Pre-Admission Diabetes Regimen
03/11/25
04:17
Creatinine 1.0
Lab Results
Hemoglobin A1c 6.1 % (4.0-5.6) H 03/01/25 06:04
Insulin Pump Settings
IP Diabetes Regimen
03/10/25 03/10/25 03/10/25
12:57 17:11 22:14
Glucose
POC Glucose 132 H 115 H 135 H
03/11/25 03/11/25
04:17 07:30
Glucose 84
POC Glucose 131 H
Meal type: Breakfast
Patient Education
[2025-03-11] MEDS: NSS IV (09:29)
[2025-03-11 12:03] LABS: Glucose - Point of Care 152 mg/dl (70-99)
[2025-03-11] MEDS: NOVOLOG FLEXPEN-LOW RESISTANCE 1 UNITS SC (12:04)
--- NOTE | 2025-03-11 14:28 | W.PN.CARDCBS ---
Today's Communication / Plan
-
Rehab at [facility]
Cardiology f/u with Dr. Ayers arranged
Impression / Plan
-
PCP: Holli Gunn
Primary Quill Winder: Dr. Ayers
Impression:
Admitted prior to planned MVR for Xarelto to Heparin bridge 02/28/25
s/p radical MV ring repair with new cords x2 at the posterior leaflet for severe MR with possible rheumatic component 03/04/25
Left atrial appendage exclusion 45 mm 03/04/2025
Postop right bundle branch block
Chronic HFpEF
Nonobstructive coronary artery disease
Type 2 diabetes on insulin
Hypertension
Hyperlipidemia
History of von Willebrand's disease
Polycythemia vera/JAK2 mutation
History of CVA
History of pulmonary embolism/DVT, on chronic Xarelto 10mg daily
History of subdural hematoma status post craniotomy at [place]
Severe obstructive sleep apnea, noncompliant with CPAP
Pulmonary nodules with restrictive/obstructive lung disease
Tobacco use
Major depressive disorder
Chronic insomnia
GERD
Obesity
Left and right heart catheterization 01/06/2025: Nonobstructive coronary artery disease. HEMODYNAMICS : (mmHg) RA (m) : 16; RV (s/d,m) : 63/11, 60; PA (s/d, m) : 63/27, 42; PCWP (m) : 20; PA saturation: 65.7% on room air; AO saturation: 84.9% on
room air; RA saturation: 66.5% on room air; Cardiac Output : 5.20 L/min by Kavon calculate; Cardiac Index : 2.58 L/min/m-2 by Kavon calculation; Systemic vascular resistance: 1277 dsc^(-5); Pulmonary vascular resistance: 3.85 curtis unit; Heart rate:
75 bpm; AO (s/d) : 146/80; LVEDP : 24; No significant gradient across the aortic valve to suggest aortic stenosis.
ECHO 10/16/20: EF 60-65%, mod cLVH, mild MR, mild TR, PAP 45mmHg
Echo 08/12/2024: EF 69%. Moderate concentric LVH. Stage II DD. Moderate to severe MR with markedly dilated left atrium. Dilated right heart with preserved RV systolic function. Moderate tricuspid regurgitation with PAP 68 to 73 mmHg
SHAVON 12/26/2024: EF 60 to 65%. Mild concentric LVH. Thickened restricted mitral leaflets with reduced excursion suggestive of��rheumatic mitral valve disease. Mitral sclerosis without stenosis; mean mitral�valve gradient 3 mmHg.��Severe central mitral
regurgitation with severely dilated left atrium.���Moderate tricuspid regurgitation. Estimated pulmonary artery pressure is 50��mmHg assuming right atrial pressure of 3 mmHg.
Post surgery SHAVON 03/04/2025: Mitral valve repair with 30 mm annuloplasty ring into neocords as well as cleft closure. With ring well-seated with no paravalvular leak and trivial residual mitral regurgitation. Mean gradient 2. s/p left atrial
appendage occlusion with clip well-seated no flow through the left atrial appendage remnant. Normal LV size and function. Mild to moderate TR.
Echo 03/07/2025: Vigorous LV systolic function with LVEF 70 to 75%, status post mitral valve repair with 30 mm annuloplasty ring, peak/mean transmitral gradient 16/8 mmHg without significant MR. Probable moderate tricuspid regurgitation, PASP 46 mmHg
Plan:
-Patient was electively admitted ahead of planned MV surgery on 02/28/25 for Xarelto to heparin bridge due to h/o PCV with JAK2 mutation, von Willebrand's disease and h/o CVA and DVT/PE.
-Patient had MV ring repair with new cords x2 to the posterior leaflet and LOUIS clip 03/04/25.
-Weight peaked at 223 lbs. postop and is down to 214 lbs on my review of VS 03/11/2025. Patient was diuresed with Lasix 40 mg IV BID. Patient is being discharged to [place] rehab on Lasix 40 mg PO daily
-Outpatient Xarelto restarted 03/06/25
-Repeat echo on 03/07/2025 showed MV repair to be intact without significant MR, PG/MG of 16/8 mmHg. LVEF 70-75%, probable moderate TR
-Patient has midodrine ordered as a PRN but has not required doses
-Patient is going to rehab at [facility] because there are no beds at [facility]
HPI 03/04/2025:
This is a 59-year-old female who has a complex list of comorbidities including hypercoagulable disorder that resulted in a previous CVA and pulmonary embolism secondary to hypercoagulable disorder and polycythemia vera. She also has mixed pathology
mitral valve disease and also complex social history. She was offered mitral valve repair with a higher than average likelihood of replacement given the valve pathology. Due to her history of CVAs and coagulopathy, her left atrial appendage will
be ligated at time of surgery.
Progress Note - Quill Winder
Subjective
Date of Service: March 11, 2025
She is disappointed that she cannot attend [place] [facility] with in however no chest pain
Objective
Labs:
03/11/25 04:17
Labs
Hgb 9.3 g/dL (12.0-16.0) L 03/10/25 04:17
Hct 27.8 % (37.0-47.0) L 03/10/25 04:17
Plt Count 305 10^3/uL (130-400) 03/10/25 04:17
PT 17.4 Sec (11.4-14.6) H 03/04/25 11:36
INR 1.40 03/04/25 11:36
APTT 33.3 Sec (23.4-35.0) 03/04/25 11:36
Sodium 135 mmol/L (135-145) 03/11/25 04:17
Potassium 5.1 mmol/L (3.5-5.1) 03/11/25 04:17
BUN 22 mg/dl (7-17) H 03/11/25 04:17
Creatinine 1.0 mg/dL (0.6-1.0) 03/11/25 04:17
Glucose 84 mg/dl (70-99) 03/11/25 04:17
Vital Signs and I&O:
Vital Signs
Temp Pulse Resp BP Pulse Ox
97.6 F 69 18 103/64 97
03/11/25 11:31 03/11/25 11:28 03/11/25 03:51 03/11/25 11:28 03/11/25 11:28
Vital Signs
Temp Pulse Resp BP Pulse Ox
97.6 F 69 18 103/64 97
03/11/25 11:31 03/11/25 11:28 03/11/25 03:51 03/11/25 11:28 03/11/25 11:28
Intake & Output
03/09/25 03/10/25 03/11/25 03/12/25
06:59 06:59 06:59 06:59
Intake Total 1610.8 / 1620.8 880 / 880 260 / 260 150 / 150
Output Total 1675 / 1675 1275 / 1275 2300 / 2300 800 / 800
Balance -64.2 / -54.2 -395 / -395 -2040 / -2040 -650 / -650
Physical Exam
Physical Exam
GEN: NAD. AAO x3
LUNGS: RA
CV: SR on tele.
--- NOTE | 2025-03-11 14:53 | W.DCSUMMARY ---
Discharge Summary
Discharge Data
Date of Admission: 02/28/25
Date of Discharge: 03/11/25
-
Pending Results: No
Hospital Course
Primary care physician: Dr. Holli Gunn
Outpatient principal strategist: Dr. Katya Sampson
Inpatient consultants: [facility], Change Booth Attendant/Airport Operations Specialist, Diabetic Nurse Practitioner
Procedures:
1. Radical Mitral Valve Repair (30mm ring) with chords to posterior leaflet, cleft closure and exclusion of LOUIS (#45 clip) by Dr. Tineo on 03/04/25
Primary Diagnosis:
1. Severe Mitral Regurgitation, mixed pathology with type IIIa tethering of posterior leaflet due to thickened cords of P1 and P2
Secondary Diagnoses:
1. Acute postop blood loss anemia
2. Acute postop atelectasis/left pleural effusion
3. Acute postop pulmonary insufficiency
4. Acute postop hypovolemia with subsequent hypervolemia
5. Acute postop somnolence, resolved with holding narcotics/sedatives
6. JAK2 polycythemia vera with history of hypercoagulable complications requiring chronic daily DOAC (Xarelto)
7. Von Willebrand disease
8. Pulmonary embolism (2018 & 2023) with thrombectomy
9. MARIANNA with CPAP use
10. Hypertension/hyperlipidemia
11. Type II DM
12. Class I obesity, BMI 34
13. Depression
14. Right subdural hematoma from fall requiring neurosurgical intervention (01/29/21)
15. Cerebral hemmorhage
16. CKD stage II (baseline Cr 1.2)
17. Pulmonary HTN
18. 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
19. Tobacco misuse
HPI: Ms. Regan is a 59-year-old female who presented for outpatient consultation regarding severe mitral regurgitation. Please see preoperative history and physical for complete presentation. Patient was referred for mitral valve repair with
Rd Tineo. She was electively admitted on 02/28/2025 for preoperative heparin bridge while holding Xarelto prior to [facility] on 03/04/25.
Hospital course: Patient was admitted on 02/28/2025 for IV heparin bridge preprocedure testing prior to elective mitral valve repair. Prior to surgery, she was diuresed with IV Lasix. On 03/04/2025, patient went to CVOR and underwent Radical Mitral
Valve Repair (30mm ring) with chords to posterior leaflet, cleft closure and exclusion of LOUIS (#45 clip) by Dr. Tineo. Please see surgeons dictated operative report for completion. Intraoperative SHAVON reported the following: LVEF preop was 55% with
NRWMA. Following surgery, her EF remained the same at 60% with no new regional wall motion abnormalities. She had a moderate degree of tricuspid valve insufficiency preop secondary to some annular dilatation. She had severe mitral valve
insufficiency. Once off cardiopulmonary bypass the valve had only trace residual mitral valve insufficiency at the P2 P3 area likely at the cleft with no systolic anterior motion of the leaflets and a mean gradient of 2 mmHg across the valve. Her
TR remained the same at moderate. In progressive fashion, inotropic support, vasopressor pressor support, central lines, chest tubes, and epicardial pacing wires were discontinued. An insulin drip was initiated following surgery and was
transitioned to patient's prior diabetic regiment. Diabetic nurse practitioners were consulted for further guidance. On postop day 2, Xarelto was restarted. Postoperative course was complicated by postop hypovolemia with subsequent hypervolemia in
which she was diuresed with IV Lasix. Additionally, outpatient regiment of clonazepam 3 mg 3 times daily was held postoperatively due to somnolence and was restarted on postoperative day 6.
On postoperative day 7, patient was tolerating her diet, tolerating activity with assistance and hemodynamically stable for discharge to [facility]. Postoperative two-view chest x-ray showed mild bibasilar opacifications suspected to be atelectasis
in which she was sent home with Acapella and incentive spirometry. Pain was well-controlled with regimen of Tylenol and Ultram 25 mg as needed every 6 hours. She was 4 pounds above her preoperative weight with a discharge weight of 97.3 kg. She
was discharged with continuation of Lasix 40 mg p.o. daily and potassium 20 mEq daily. Patient endured postoperative hypotension with requirement of midodrine 3 times daily with de-escalation to as needed. He was discharged with midodrine 5 mg as
needed for systolic blood pressure less than 100 mmHg. Her beta-sienna was held postoperatively due to hypotension. Consideration of initiating beta-sienna should be evaluated upon follow-up in which Toprol-XL 12.5 mg daily could be considered.
Patient was discharged to [facility] with plan to follow-up with Dr. Tineo in 4 weeks. Appointment was made to follow-up with cardiology upon discharge.
Home medication changes:
- See list provided below.
Discharge Plan
-
Patient Disposition: Acute Rehab Facility
Discharge Diagnosis/Procedures: Mitral Valve repair, left atrial appendage clip
Condition: Good
Diet: Low Cholesterol, Low Sodium and Diabetic, Carb Controlled
Activity: No strenuous activity
Driving Restrictions: Not until seen by your Dr
Bathing Restrictions: OK to Shower
Other Services: Cardiac Rehab
Wound Care: No lotions, creams, or powders on procedural sites. Shower daily with soap and water.
Specialty Instructions: Weigh Daily- Call MD for wt gain/loss 3 lbs overnight/5 lbs in 1 week
Activity Restrictions/Additional Instructions:
ACTIVITY:
- No strenuous activity: no heavy lifting, pushing, pulling anything over 15 pounds for one month
- Continue to use stairs as tolerated
DRIVING RESTRICTIONS:
- No driving for one month or until approved by your surgeon
WOUND CARE:
- Shower daily. Use soap & water.
- No lotions, creams or powders on incision area.
DIET:
- Continue a low fat/low cholesterol diet.
- If you are diabetic, continue carb controlled diet.
CARDIAC REHAB:
- Please make appointment to start in 5-6 weeks with your local hospital program. (See Cardiac Rehabilitation Discharge Booklet).
SPECIALTY INSTRUCTIONS:
- Weigh yourself daily. Call your physician for any weight gain/loss of 3 lbs overnight or 5 lbs in one week.
- REPORT any clicking noise or uneven appearance of your sternum to your surgeon immediately.
- If you smoke, you are instructed to quit. The [place] smoking hotline phone number is [phone]
Referrals:
CT Transitional Care Nurse [Outside]
Referral Note: The Cardiothoracic Transitional Care Nurse will call you to set up a visit in 1-2 days.
Miley Loera PA-C [Specified Professional Personl, Cardiology] - 04/16/25 10:20 am
Holli Gunn DO [Family Provider, Internal Medicine]
Rd Tineo MD [Active, Cardiac Surgery] - 03/31/25 2:30 pm
Prescriptions:
New
acetaminophen 325 mg Tablet
650 mg PO Q4HPRN PRN (Reason: mild pain,headache,temp >101F ) Qty: 0 0RF
midodrine 5 mg Tablet
5 mg PO TID@0800,1300,1800 PRN (Reason: SBP </= 100) Qty: 20 0RF
furosemide 40 mg Tablet
40 mg PO DAILY Qty: 30 0RF
potassium chloride 20 mEq Tablet,Er Particles/Crystals
20 meq PO DAILY Qty: 30 0RF
tramadol 50 mg Tablet
25 mg PO Q6HPRN PRN (Reason: Moderate Pain unalleviated by Tylenol) Qty: 30 0RF
Continued
hydroxyurea 500 MG capsule
1,500 mg PO DAILY
clonazepam 1 MG tablet
3 mg PO TID
Xarelto 20 MG tablet
20 mg PO DAILY
atorvastatin 40 MG tablet
40 mg PO HS
dapagliflozin propanediol [Farxiga] 10 mg Tablet
10 mg PO DAILY
bupropion HCl [Wellbutrin XL] 150 mg Tablet Extended Release 24 Hr
150 mg PO DAILY
famotidine 20 mg Tablet
20 mg PO PRN PRN (Reason: GERD)
fluticasone propionate 50 mcg/actuation [place],Suspension
1 spray INTRANASAL DAILYPRN PRN (Reason: as patient needs it)
insulin glargine [Basaglar KwikPen U-100 Insulin] 100 unit/mL (3 mL) Insulin Pen
10 unit SC BID
cholecalciferol (vitamin D3) [Vitamin D3] 10 mcg (400 unit) Tablet,Chewable
20 mcg PO DAILY
Ozempic 0.25 mg or 0.5 mg (2 mg/3 mL) Pen Injector
0.5 mg SC QWEEK
quetiapine [Seroquel] 100 mg Tablet
100 mg PO HS Qty: 0 0RF
bupropion HCl 100 mg Tablet
300 mg PO DAILY Qty: 0 0RF
pantoprazole 40 mg Tablet,Delayed Release (Dr/Ec)
40 mg PO BID Qty: 0 0RF
magnesium 200 mg Tablet
400 mg PO DAILY Qty: 0 0RF
zolpidem 12.5 mg Tablet,Ext Release Multiphase
12.5 mg PO HS Qty: 0 0RF
melatonin 10 mg Tablet
10 mg PO HS Qty: 0 0RF
Discontinued
metoprolol succinate 100 mg Tablet Extended Release 24 Hr
50 mg PO DAILY Qty: 30 0RF
furosemide 40 MG tablet
60 mg PO DAILY Qty: 0 0RF
Discharge Orders:
Discharge Patient (As Directed); Ordered 03/11/25
Ordered By: Dilia Blake
Care Plan Goals
Care Plan Goals:
Problem: Readiness for enhanced knowledge related to diagnosis and treatment plan
Goal: Understand your diagnosis and treatment plan needs, including medications if applicable.
Instructions: Know your diagnosis, underlying causes and treatment plan options, including medications if applicable. Consult with your health care team to learn about your diagnosis and treatment plan, including medications if applicable.
Discharge Date and Time
Print Language: COOK ISLANDER
--- NOTE | 2025-03-11 15:39 | CM ---
[facility] does not have bedds, there is a bed avail at [place] in [facility]. pt agreeable to go there. transportation arranged. pt understands that the van is not covered by insur and that they will bill her
[2025-03-11 15:45] LABS: Hematocrit 28.6 % (37.0-47.0); Hemoglobin 9.3 g/dL (12.0-16.0); Mean Corp Hgb Conc. 32.5 g/dL (33.0-37.0); Mean Corpuscular Volume 124.3 fL (81.0-99.0); Platelet Count 372 10^3/uL (130-400); Red Cell Dist. Width 18.8 % (11.5-14.5)
[2025-03-11] MEDS: TYLENOL PO (15:47)
[2025-03-11] MEDS: ULTRAM 50 MG PO (15:48)
== END 2025-03-11 16:30 | DRG 219 ==
LOC: CVICU 14:15
PROVIDERS: Anesthesiology; Nurse Practitioner; Physician Assistant; Physician Assistant Medical; ADMITTING PHYSICIAN Thoracic Surgery (Cardiothoracic Vascular Surgery); CONSULT PHYSICIAN Internal Medicine Cardiovascular Disease; CONSULT PHYSICIAN Internal Medicine Critical Care Medicine; CONSULT PHYSICIAN Physical Medicine & Rehabilitation; FAMILY PHYSICIAN Internal Medicine
PROC: 5A09357 Assistance with Respiratory Ventilation, Less than 24 Consecutive Hours, Continuous Positive Airway Pressure (ICD-10-PCS; 2025-03-04)
PROC: 5A1221Z Performance of Cardiac Output, Continuous (ICD-10-PCS; 2025-03-04)
PROC: B24BZZ4 Ultrasonography of Heart with Aorta, Transesophageal (ICD-10-PCS; 2025-03-04)
PROC: 02U90JZ Supplement Chordae Tendineae with Synthetic Substitute, Open Approach (ICD-10-PCS; 2025-03-04)
PROC: 02L70CK Occlusion of Left Atrial Appendage with Extraluminal Device, Open Approach (ICD-10-PCS; 2025-03-04)
PROC: 02UG08Z Supplement Mitral Valve with Zooplastic Tissue, Open Approach (ICD-10-PCS; 2025-03-04)
DX: I08.1 Rheumatic disorders of both mitral and tricuspid valves (principal); J95.2 Acute pulmonary insufficiency following nonthoracic surgery; J96.01 Acute respiratory failure with hypoxia; J96.02 Acute respiratory failure with hypercapnia; D68.00 Von Willebrand disease, unspecified; I50.32 Chronic diastolic (congestive) heart failure; I13.0 Hypertensive heart and chronic kidney disease with heart failure and stage 1 through stage 4 chronic kidney disease, or unspecified chronic kidney disease; D62 Acute posthemorrhagic anemia; J98.11 Atelectasis; D45 Polycythemia vera; E87.6 Hypokalemia; E86.1 Hypovolemia; R40.0 Somnolence; I95.81 Postprocedural hypotension; I45.10 Unspecified right bundle-branch block; R00.1 Bradycardia, unspecified; Y83.8 Other surgical procedures as the cause of abnormal reaction of the patient, or of later complication, without mention of misadventure at the time of the procedure; G47.33 Obstructive sleep apnea (adult) (pediatric); N18.2 Chronic kidney disease, stage 2 (mild); E11.22 Type 2 diabetes mellitus with diabetic chronic kidney disease; F32.9 Major depressive disorder, single episode, unspecified; E78.00 Pure hypercholesterolemia, unspecified; I27.20 Pulmonary hypertension, unspecified; K21.9 Gastro-esophageal reflux disease without esophagitis; Z68.34 Body mass index [BMI] 34.0-34.9, adult; E66.812 Obesity, class 2; F43.10 Post-traumatic stress disorder, unspecified; G47.00 Insomnia, unspecified; J44.9 Chronic obstructive pulmonary disease, unspecified; I25.10 Atherosclerotic heart disease of native coronary artery without angina pectoris; Z86.711 Personal history of pulmonary embolism; Z87.891 Personal history of nicotine dependence; Z86.73 Personal history of transient ischemic attack (TIA), and cerebral infarction without residual deficits; Z87.01 Personal history of pneumonia (recurrent); Z79.01 Long term (current) use of anticoagulants; Z82.49 Family history of ischemic heart disease and other diseases of the circulatory system
CPT/HCPCS: 71045; 71046; 71250; 80048; 80053; 81003; 81015; 82140; 82248; 82330; 82805; 82810; 82962; 83036; 83735; 84132; 84302; 85014; 85018; 85027; 85049; 85610; 85730; 86803; 86850; 86900; 86901; 86920; 88305; 93005; 93308; 93312; 93320; 93321; 93325; 93880; 94002; 94660; 97116; 97163; 97167; 97530; 97535; P9047

== ENCOUNTER 2025-03-31 22:16 | Inpatient (IN) | payer MEDICARE, OTHER, SELFPAY ==
[2025-03-31] VITALS (9 sets, daily range): BP systolic 105–154; BP diastolic 60–104; BMI 33.9; BMI 33.6
--- NOTE | 2025-03-31 16:37 | ED.GENMED ---
History of Present Illness
General
Chief Complaint: Chest Pain
Source: patient
Exam Limitations: none
Time Seen by Provider: 03/31/25 16:16
History of Present Illness
History of Present Illness:
See MDM
Past History
Past History
ED Past Medical History: Asthma, CHF, COPD, GERD, HTN, Hypercholesterolemia, IDDM, Valvular disease (Mitral/Tricuspid regurgitation), Psychiatric (Depression) and Other (DVT/Pulmonary embolism, von Willebrand's disease, Cellulitis, PNA)
ED Past Surgical History: None
Social History
Tobacco: Smoker
Alcohol: None
Drug: None
Personal: Single
Living: with roommate
Employment: Not employed
Family History
Family History: Other
Phy Exam
Physical Exam
Physical Exam:
See MDM
Scores
Heart Score for Chest Pain Patients
STEMI patient?: No
History: Moderately Suspicious
ECG: Normal
Age: >/= 65 years
Risk Factors: 1 or 2 Risk Factors
Troponin: >1 - <3 x Normal Limit
Heart Score for Chest Pain Patients: 5
Heart Score Risk: 20.3% MACE over next 6 weeks
Course
Orders/Labs/Results
Orders:
Orders
03/31/25 14:44
Electrocardiogram (*1) Urgent
Reason for Study: Chest Pain
EKG- Treatment ONCE
03/31/25 14:46
Echo Follow up Study W Dop Routine
Reason for Study: Chest pain s/p MVr 03/04/25
03/31/25 16:44
COVID-19 Antigen Urgent
Source: Nasal Swab
Influenza A+B Rapid Molecular Urgent
THERESA Source: Nasal Swab
Specimen Description:
03/31/25 16:58
CT Chest PE Study Urgent
Comment:
Reason For Exam: SOB, recent MV repair
BNP [NT-proBNP] Urgent
Complete Blood Count/With Diff Urgent
PTT Urgent
Troponin I Urgent
03/31/25 18:18
Morphine Sulfate 4 mg IV NOW STA
Ondansetron Injectable [Zofran] 4 mg IV NOW STA
03/31/25 19:58
Comprehensive Metabolic Panel Urgent
03/31/25 20:[address] See Dose Instructions PO NOW STA
Discontinue all Active Warfarin orders?: Yes
03/31/25 20:[address] Non Medication Order As Directed
Physician Order: PTT 6 hours after initial start of Heparin infusion
03/31/25 21:[address] See Dose Instructions IV DIRECTED
Abnormal Lab Results
03/31/25 03/31/25
16:58 19:58
RBC 3.32 L 10^6/uL
(4.20-5.40)
MCV 118.7 H fL
(81.0-99.0)
MCH 37.3 H pg
(27.0-31.0)
MCHC 31.5 L g/dL
(33.0-37.0)
RDW 17.8 H %
(11.5-14.5)
MPV 10.6 H fL
(7.4-10.4)
APTT 46.9 H Sec
(23.4-35.0)
Sodium 134 L mmol/L
(135-145)
Glucose 102 H mg/dl
(70-99)
Alkaline Phosphatase 163 H U/L
(38-126)
Troponin I 0.047 H* ng/ml
Total Protein 6.0 L g/dl
(6.3-8.2)
03/31/25 16:58
03/31/25 19:58
Vital Signs
Initial and Last Documented VS:
Initial Vital Signs
Temp Pulse Resp BP Pulse Ox
98.1 F 65 18 133/90 99
03/31/25 14:49 03/31/25 14:49 03/31/25 14:49 03/31/25 14:49 03/31/25 14:49
Last Documented Vital Signs
Temp Pulse Resp BP Pulse Ox
98.1 F 66 18 142/88 98
03/31/25 14:49 03/31/25 16:34 03/31/25 16:34 03/31/25 16:33 03/31/25 16:47
MDM/Problems Addressed
Differential Diagnosis Includes:
Note:
CHIEF COMPLAINT(S)
Cough and post-operative evaluation following mitral valve repair.
HISTORY OF PRESENT ILLNESS
The patient is a 59-year-old female who presents for evaluation following recent mitral valve repair surgery performed last month. She reports having a dry cough for the past week. The patient denies any productive cough and there is no significant
fluid accumulation in her lower extremities. She was seen in the cardiothoracic surgery clinic today, and the surgery team is aware of her current presentation. Echo was ordered by the CT surgical team. Patient presents to the emergency department
after the echo was performed. Patient does complain of contacts
PHYSICAL EXAM
General: Alert, no acute distress.
Skin: Sternal incision clean and intact
Head: Normocephalic, atraumatic
Neck: Appears supple, trachea midline.
Eyes, Ears, Nose, Mouth, and Throat: Oral mucosa moist.
Cardiovascular: No signs of cyanosis. Regular rate and rhythm
Respiratory: Respirations are non-labored. Lungs clear
Abdomen: Non-distended
Musculoskeletal: No deformities
Neurological: No focal neurological deficit observed.
Psychiatric: Cooperative, appropriate mood and affect.
PLAN
1. Conduct laboratory workup, including tests for COVID-19, influenza, and pneumonia.
2. Perform a chest X-ray to assess pulmonary status.
3. Await results from the echocardiogram ordered by the cardiothoracic surgery team.
4. Coordinate with the cardiothoracic surgery team for further management based on test results.
DIFFERENTIAL DIAGNOSIS
The Differential Diagnosis includes, in no particular order and is not limited to:
1. Viral upper respiratory infection
2. Pneumonia
3. Post-operative respiratory complication
4. Heart failure exacerbation
5. Post-nasal drip
6. Acute bronchitis
7. Pulmonary embolism
8. COVID-19
9. Influenza
10. Medication side effect (post-op related)
SUMMARY OF ENCOUNTER
The patient was seen in the emergency department for persistent symptoms, and a CT scan confirmed a pulmonary embolism. The patient was already on rivaroxaban (Xarelto) but required additional anticoagulation. Heparin was initiated, and the patient
was admitted to the hospitalist service for further management. Earlier echocardiogram results indicated right ventricle and right atrial dilation, aligning with the diagnosis of a pulmonary embolism. The patient was otherwise stable during the
visit.
DISPOSITION
Admit
ASSESSMENT
Pulmonary embolism with right ventricular and right atrial dilation, as confirmed by imaging.
EMERGENCY TREATMENTS ADMINISTERED
Initiated heparin for anticoagulation.
PLAN
Patient was admitted to the hospitalist service for ongoing management of the pulmonary embolism, monitoring, and further treatment.
INDEPENDENT REVIEW OF LABS AND INTERPRETATION OF TESTS
My independent review of a CT scan confirms the presence of a pulmonary embolism.
My independent interpretation of the echocardiogram shows right ventricle and right atrial dilation.
MANAGEMENT OF THE PATIENTS CARE WAS DISCUSSED WITH
The hospitalist team for admission and continued management of the anticoagulation therapy and observation.
MEDICATION RECONCILIATION
Heparin initiated for acute management of pulmonary embolism.
MEDICAL DECISION MAKING
- Number and Complexity of Problems Addressed: Chronic conditions affecting care [Hx of pulmonary embolism]
- Data:
Category [address] scan confirming pulmonary embolism.
Review of echocardiogram indicating right ventricular and right atrial dilation.
Category 3
Discussion of management with hospitalist service for admission and further care.
-Risk:
Consideration of Admission/Observation: Escalation of care including admission was deemed necessary due to the complexity and risk associated with the pulmonary embolism diagnosis, as well as the observed right ventricular and atrial dilation.
Patient was admitted for further management to prevent serious complications.
DIAGNOSIS
Pulmonary embolism - ICD-10: I26.99
*Pulse Oximetry
SaO2: 96
Oxygen Mode of Delivery: Room air
Patient hypoxic: no
*Critical Care Note
Total Time (30-74mins, 75-104mins- exclusive of procedures): 33 min
comment:
The high probability of a clinically significant, sudden or life threatening deterioration of the pulmonary system(s) required my full and direct attention, intervention and personal management. The aggregate critical care time was 33 minutes. This
time is in addition to time spent performing reported procedures but includes the following:
[x] Data Review and interpretation
[x] Patient assessment and monitoring of vital signs
[x] Documentation
[x] Medication orders and management
ED Attending Note
-
Portions of this chart may have been created with voice recognition software.� Occasional wrong word or��sound alike� substitutions may have occurred due to the inherent limitations of voice recognition software.
Discharge Plan
Departure
Patient Disposition: Admit
Date of Disposition: 03/31/25
Time of Disposition: 20:37
Admit to: Med/Surg
Presentation/result/management discussed w/ accepting MD/DO: Hospitalist
Discharge Problem:
Pulmonary embolism
Prescriptions:
No Action
hydroxyurea 500 MG capsule
1,500 mg PO DAILY
clonazepam 1 MG tablet
1 mg PO TID
Xarelto 20 MG tablet
20 mg PO DAILY
atorvastatin 40 MG tablet
40 mg PO HS
dapagliflozin propanediol [Farxiga] 10 mg Tablet
10 mg PO DAILY
bupropion HCl [Wellbutrin XL] 150 mg Tablet Extended Release 24 Hr
150 mg PO DAILY
famotidine 20 mg Tablet
20 mg PO DAILYPRN PRN (Reason: GERD)
fluticasone propionate 50 mcg/actuation [place],Suspension
1 spray INTRANASAL DAILYPRN PRN (Reason: allergies)
insulin glargine [Basaglar KwikPen U-100 Insulin] 100 unit/mL (3 mL) Insulin Pen
10 unit SC BID
cholecalciferol (vitamin D3) [Vitamin D3] 10 mcg (400 unit) Tablet,Chewable
20 mcg PO DAILY
quetiapine [Seroquel] 100 mg Tablet
100 mg PO HS Qty: 0 0RF
pantoprazole 40 mg Tablet,Delayed Release (Dr/Ec)
40 mg PO BID Qty: 0 0RF
magnesium 200 mg Tablet
400 mg PO DAILY Qty: 0 0RF
zolpidem 12.5 mg Tablet,Ext Release Multiphase
12.5 mg PO HS Qty: 0 0RF
melatonin 10 mg Tablet
10 mg PO HS Qty: 0 0RF
midodrine 5 mg Tablet
5 mg PO TID@0800,1300,1800 PRN (Reason: SBP </= 100) Qty: 20 0RF
furosemide 40 mg Tablet
40 mg PO DAILY Qty: 30 0RF
potassium chloride 20 mEq Tablet,Er Particles/Crystals
20 meq PO DAILY Qty: 30 0RF
ibuprofen [Advil] 200 mg Tablet
400 mg PO Q6HPRN PRN (Reason: mild pain)
albuterol sulfate [ProAir HFA] 90 mcg/actuation Hfa Aerosol Inhaler
2 puff INHALATION R Q6HPRN PRN (Reason: sob)
simethicone [Gas-X] 80 mg Tablet,Chewable
80 mg PO DAILYPRN PRN (Reason: gas pains)
bupropion HCl [Wellbutrin XL] 300 mg Tablet Extended Release 24 Hr
300 mg PO DAILY
Referrals:
Holli Gunn DO [Family Provider, Internal Medicine]
Interventions
Interventions:
*Risk Screen - Suicide Last Done: 03/31/25 16:47
*General Assessment Last Done: 03/31/25 14:49
*Neglect/Abuse Screening Last Done: 03/31/25 16:47
*ED- Fall Risk Assessment Last Done: 03/31/25 16:47
*ED COVID-19 Vaccine History Last Done: 03/31/25 16:47
*ED Influenza Vaccine History Last Done: 03/31/25 16:47
ED- Cardiac Assessment Last Done: 03/31/25 16:47
Discharge Date and Time
Print Language: LATVIAN
[2025-03-31 17:06] LABS: COVID-19 Antigen Negative (Negative)
[2025-03-31 17:09] LABS: Hematocrit 39.4 % (37.0-47.0); Hemoglobin 12.4 g/dL (12.0-16.0); Mean Corp Hgb Conc. 31.5 g/dL (33.0-37.0); Mean Corpuscular Volume 118.7 fL (81.0-99.0); Nucleated Red Blood Cells % 0.8 %; Platelet Count 288 10^3/uL (130-400); Red Cell Dist. Width 17.8 % (11.5-14.5)
[2025-03-31 17:16] LABS: APTT 46.9 Sec (23.4-35.0)
--- NOTE | 2025-03-31 17:22 | PHANOTE ---
med rec note-called [facility] for missing medication list, no answer with 3 phone calls
[2025-03-31 17:44] LABS: Troponin I 0.047 ng/ml
[2025-03-31] MEDS: ZOFRAN 4 MG IV (18:24)
[2025-03-31] MEDS: MORPHINE SULFATE 4 MG IV (18:25)
[2025-03-31 20:30] LABS: ALT (SGPT) 27 U/L (0-35); AST (SGOT) 25 U/L (14-36); Albumin 3.5 g/dl (3.5-5.0); Alkaline Phosphatase 163 U/L (38-126); Blood Urea Nitrogen 16 mg/dl (7-17); Calcium 9.0 mg/dl (8.4-10.2); Carbon Dioxide 25 mmol/L (22-30); Chloride 105 mmol/L (98-107); Estimated Creatinine Clearance 74 ml/min; Glucose 102 mg/dl (70-99); Potassium 4.4 mmol/L (3.5-5.1); Sodium 134 mmol/L (135-145); Total Protein 6.0 g/dl (6.3-8.2); eGFR > 60.00
--- NOTE | 2025-03-31 20:52 | HPS.HSE ---
Addendum entered and electronically signed by Abelardo Mc DO 03/31/25 22:01:
Patient seen and examined independently. Agree with findings and plan as set forth by JEANNIE Agarwal.
Patient is a 59y F with PMH significant for HTN, DM-II and recent mitral valve repair who presents to ED complaining of headache, nausea and malaise. Patient was seen by CT Surgery today in follow-up and sent to the ED for evaluation. Patient
reports perhaps some mild, intermittent chest pain. No SOB. She has a prior h/o PE (always R lower) and states that current symptoms do not feel similar.
Patient received medication in the ED for headache and nausea and states that she currently feels much improved.
Ass:
Right Lower Lobe Pulmonary Embolism - Acute v Chronic
Headache / Nausea - ? Viral Syndrome
s/p MV Repair (03/04/25)
von Willebrand's Disease
Polycythemia vera
CKD II
Benign Hypertension
MARIANNA on CPAP
DM-II
History of Traumatic Cerebral Hemorrhage
Plan:
Admit for further evaluation and treatment.
COVID / Flu negative in the ED.
Continue supportive care, headache control, antiemetics, etc.
Change Xarelto to IV heparin for now.
Unclear from CT findings (and clinical findings) whether PE seen on imaging is acute or chronic?
Cardiology evaluation for additional recommendations / usp anticoagulation strategies.
Original Note:
Family Physician
-
Family Physician: Holli Gunn
Chief Complaint
-
dry cough, nausea and vomiting
History of Present Illness
Patient is a 59-year-old female with past medical history significant for hypertension, hyperlipidemia, type 2 diabetes, depression, chronic kidney disease II, Von Willebrand disease and Hx pulmonary embolism who presented to [facility] ED for evaluation
of dry cough, nausea and vomiting for past week. Patient is s/p mitral valve repair on 03/04/[address] Tineo. Patient was seen by CT surgery clinic today and they ordered ECHO, following ECHO it was recommended for her to come to ED for
evaluation. Patient does note some chest pain over the past week. Denies any fever, chills, shortnes of breath, constipation, dairrhea or urinary symptoms.
Medical History
Past Medical History
Past Medical History: Reports Other
Additional Past Medical History:
Pulmonary embolism 2018 & 2023 w/thrombectomy
Obstructive sleep apnea with CPAP use
Hypertension
Tobacco dependence
Type 2 diabetes
Depression
Hyperlipidemia
Von Willebrand disease
Polycythemia vera
Right subdural hematoma from fall requiring neurosurgical intervention (01/29/2021)
Iliac artery thrombosis
Cerebral hemorrhage
Chronic kidney disease stage II
Pulmonary hypertension
Hard of hearing
Past Surgical History: Reports Other
Additional Past Surgical History:
2004
Tonsillectomy
Right L4-L5 IL�LAUREN (02/01/2022)
Cautery of duodenal ectasia stomach ectasia at [facility] (2022)
thromboectomy 2018 & 2023
Right subdural hematoma from fall requiring neurosurgical intervention (01/29/2021)
mitral valve repair
Social History
Tobacco: Former Smoker (Quit 2021 ([id number] history))
Alcohol: None
Drug: None
Personal: Single
Living: Other (halfway)
Employment: Not Employed
Family History
Family History: Not pertinent
Allergies / Home Medications
Allergies reflects when Allergies were last updated in [employer].
Home Medications with original date entered in [employer]
Allergy/Medication List:
Allergies
Allergy/AdvReac Type Severity Reaction Status Date / Time
No Known Allergies Allergy Verified 03/31/25 14:49
Home Medications
clonazepam 1 mg tablet 1 mg PO TID Mental Health/Anxiety 10/08/20
hydroxyurea 500 mg capsule 1,500 mg PO DAILY POLYCYTHEMIA VERA 10/08/20
rivaroxaban 20 mg tablet (Xarelto) 20 mg PO DAILY Blood clot prevention/tx 10/08/20
atorvastatin 40 mg tablet 40 mg PO HS High cholesterol 01/12/21
bupropion HCl 150 mg 24 hr tablet, extended release (Wellbutrin XL) 150 mg PO DAILY mental health 06/15/22
dapagliflozin propanediol 10 mg tablet (Farxiga) 10 mg PO DAILY Heart Failure/DIABETES 06/15/22
cholecalciferol (vitamin D3) 10 mcg (400 unit) chewable tablet (Vitamin D3) 20 mcg PO DAILY Supplement 12/26/24
famotidine 20 mg tablet 20 mg PO DAILYPRN PRN GERD 12/26/24
fluticasone propionate 50 mcg/actuation nasal spray,suspension 1 spray intranasal DAILYPRN PRN allergies 12/26/24
insulin glargine 100 unit/mL (3 mL) subcutaneous pen (Basaglar KwikPen U-100 Insulin) 10 unit SC BID Diabetes 12/26/24
magnesium 200 mg tablet 400 mg (2 x 200 mg) PO DAILY Supplement #0 tabs 03/06/25
melatonin 10 mg tablet 10 mg PO HS insomnia #0 tabs 03/06/25
pantoprazole 40 mg tablet,delayed release 40 mg PO BID Gastrointestinal issue #0 tabs 03/06/25
quetiapine 100 mg tablet (Seroquel) 100 mg PO HS Mental Health/Anxiety #0 tabs 03/06/25
zolpidem 12.5 mg tablet,extended release,multiphase 12.5 mg PO HS insomnia #0 tabs 03/06/25
furosemide 40 mg tablet 40 mg PO DAILY Fluid retention/Swelling #30 tabs 03/11/25
midodrine 5 mg tablet 5 mg PO TID@0800,1300,1800 PRN SBP </= 100 #20 tabs 03/11/25
potassium chloride 20 mEq tablet,extended release(part/cryst) 20 meq PO DAILY Supplement #30 tabs 03/11/25
albuterol sulfate 90 mcg/actuation aerosol inhaler 2 puff inhalation R Q6HPRN PRN sob 03/31/25
bupropion HCl 300 mg 24 hr tablet, extended release (Wellbutrin XL) 300 mg PO DAILY 03/31/25
ibuprofen 200 mg tablet (Advil) 400 mg PO Q6HPRN PRN mild pain 03/31/25
simethicone 80 mg chewable tablet 80 mg PO DAILYPRN PRN gas pains 03/31/25
Review of Systems
-
History Source: Patient
Constitutional: Denies Fever or Chills
EENT: Denies Sore Throat
Respiratory: Reports Cough (dry ); Denies Trouble Breathing
Cardiac: Reports Chest Pain; Denies Diaphoresis, Palpitations or Syncope
Abdomen/GI: Reports Nausea and Vomiting; Denies Abdominal Pain, Diarrhea or Constipated
: Denies Dysuria, Frequency or Urgency
Skin: Denies Rash
Neurological: Reports Headache; Denies Dizzy, Weakness or Numbness
Physical Exam
Vital Signs
Vital Signs
Temp Pulse Resp BP Pulse Ox
98.1 F 66 18 142/88 98
03/31/25 14:49 03/31/25 16:34 03/31/25 16:34 03/31/25 16:33 03/31/25 16:47
Physical Exam
General: Well Developed, Well Nourished, No Apparent Distress, Comfortable, Conversant and Obese
HEENT: NormoCephalic, Moist mucous membranes, PERRLA, Nose Appears Normal and Ears Appear Normal
Respiratory: Clear and Non Labored Respirations
Cardiac: S1/S2 and Regular Rhythm; No Murmur, Rub or Gallop
GI: Soft, Non Tender, Non Distended and Normal Bowel Sounds
Musculoskeletal: No Clubbing, No Cyanosis and No Edema
Skin: Warm and IV/Catheter Site
Neuro: Awake and AO x 3
Psych: Calm
Laboratory Results
-
03/31/25 16:58
03/31/25 19:58
Laboratory Results
APTT 46.9 Sec (23.4-35.0) H 03/31/25 16:58
Total Bilirubin 0.8 mg/dl (0.2-1.3) 03/31/25 19:58
AST 25 U/L (14-36) 03/31/25 19:58
ALT 27 U/L (0-35) 03/31/25 19:58
Alkaline Phosphatase 163 U/L (38-126) H 03/31/25 19:58
Troponin I 0.047 ng/ml H* 03/31/25 16:58
Data Reviewed
-
CT Scan: Report Reviewed by me (Chest: Examination is positive for pulmonary embolism involving the proximal aspect of the right lower lobe pulmonary artery. Comparing to prior examinations, question whether this could represent chronic artery
embolism, with similar appearance of right lower lobe pulmonary artery branches to unenh)
Medical Tests (Nuc Med, Echo, EKG etc): Report Reviewed by me (EKG: NORMAL SINUS RHYTHM RIGHT BUNDLE BRANCH BLOCK)
Lab Data: Labs Reviewed by me (Alk Phos 163, trop 0.047, pBNP 3170)
Impression/Plan
-
IMPRESSION/PLAN:
#dry cough, nausea, vomting, mild chest discomfort 2/2 PE vs. musculoskeletal vs. infectious process
#Hx pulmonary embolism
Alk Phos 163, trop 0.047, pBNP [address]: Examination is positive for pulmonary embolism involving the proximal aspect of the right lower lobe pulmonary artery. Comparing to prior examinations, question whether this could represent
chronic artery embolism, with similar appearance of right lower lobe pulmonary artery branches to unenhanced CT of the chest from February 28, 2025.
Enlargement of the right atrium and right ventricle, findings suggestive of elevated right heart pressure.
As warranted, consideration for follow-up CT angiography of the chest after treatment, with particular attention to the right lower lobe pulmonary artery and its branches.
Discoid atelectasis within both lungs. No significant pleural effusion or pericardial effusion.
Fatty infiltration of the liver.
EKG: NORMAL SINUS RHYTHM
RIGHT BUNDLE BRANCH BLOCK
ECHO: 1. Normal left ventricular size and function. No regional wall motion abnormalities. The estimated ejection fraction is 65%.
2. Severely dilated left atrium left atrium.
3. Mildly dilated right atrium.
4. No aortic stenosis or aortic insufficiency.
5. #30 annuloplasty ring, 2 harriet cords and cleft closure 03/04/25 mitral valve prosthetic ring is noted. Trivial residual mitral regurgitation
6. Severe tricuspid regurgitation. Estimated pulmonary artery pressure of 58 mmHg assuming a right atrial pressure of 8 mmHg.
7. When compared to the most recent echocardiogram from 03/07/2025, there has been no change in the mitral valve. Estimated pulmonary artery systolic pressure has increased from
46 mmHg to 58 mmHg.
Influenza: negative
Covid: negative
- Admit to telemetry
- Consult Cardiology
- heparin gtt
- hold Xarelto
#hyperlipidemia
- continue atorvastatin
#type 2 diabetes
- AccuCheck AC & HS
- SSI
- continue Farxiga and insulin glargine
#depression
- continue bupropion, clonazepam and quetiapine
#polycythemia
- continue hydroxyurea
#severe mitral regurgitation
s/p mitral value repair 02/2025
- continue furosemide
#chronic kidney disease II
BUN 16, Creat 0.9
- stable, monitor BMP
#Von Willebrand disease
#hypertension
Code status: full code
DVT prophylaxis: heparin gtt
[2025-03-31] MEDS: HEPARIN 7400 UNITS IV (21:51)
[2025-03-31] MEDS: HEPARIN 25000 UNITS/250 ML IV (21:52)
--- NOTE | 2025-03-31 23:30 | PTCARENOTE ---
Pt received from ED via stretcher at 2300. Pt AAOx3, VSS, and able to take a few steps from the stretcher to bed with assistance. Pt absent of pain at this time. Pt presents on Heparin Gtt at 17 mls/hour. Pt receptive to room and call kolb. Pt bed
in lowest position and call kolb within reach. Pt educated on importance of call kolb usage, pt relays understanding and cooperation. Will continue with current plan of care.
[2025-03-31 23:51] LABS: Glucose - Point of Care 130 mg/dl (70-99)
[2025-04-01 00:14] VITALS: BMI 33.6
[2025-04-01] MEDS: AMBIEN 10 MG PO ×2 (00:31→22:01)
[2025-04-01] MEDS: MELATONIN 10 MG PO ×2 (00:32→22:02)
[2025-04-01] MEDS: LIPITOR 40 MG PO ×2 (00:32→22:02)
[2025-04-01] MEDS: SEROQUEL 100 MG PO ×2 (00:32→22:02)
[2025-04-01] MEDS: KLONOPIN 1 MG PO ×4 (00:32→22:02)
[2025-04-01 03:00] VITALS: BP 126/72
[2025-04-01 04:19] LABS: Hematocrit 36.1 % (37.0-47.0); Hemoglobin 10.9 g/dL (12.0-16.0); Mean Corp Hgb Conc. 30.2 g/dL (33.0-37.0); Mean Corpuscular Volume 118.8 fL (81.0-99.0); Platelet Count 242 10^3/uL (130-400); Red Cell Dist. Width 18.0 % (11.5-14.5)
[2025-04-01 05:18] LABS: Troponin I 0.055 ng/ml
[2025-04-01 06:41] LABS: APTT > 200 Sec (23.4-35.0)
--- NOTE | 2025-04-01 06:46 | PTCARENOTE ---
PTT result greater than 200. Following protocol. Holding for 2 hours then decreasing by 400.
[2025-04-01 07:32] LABS: Glucose - Point of Care 84 mg/dl (70-99)
[2025-04-01 07:47] VITALS: BP 123/67
[2025-04-01] MEDS: NOVOLOG FLEXPEN-LOW RESISTANCE SC (08:49)
[2025-04-01] MEDS: HYDREA 1500 MG PO (08:50)
[2025-04-01] MEDS: FARXIGA 10 MG PO (08:50)
[2025-04-01] MEDS: PROTONIX 40 MG PO ×2 (08:50→20:00)
[2025-04-01] MEDS: KCL 20 MEQ PO (08:50)
[2025-04-01] MEDS: VITAMIN D3 (cholecalciferol) 20 MCG PO (08:50)
[2025-04-01] MEDS: WELLBUTRIN XL (24 hour extended release) 300 MG PO (08:51)
[2025-04-01] MEDS: MAGNESIUM OXIDE 400 MG PO (08:51)
[2025-04-01] MEDS: WELLBUTRIN XL (24 hour extended release) 150 MG PO (08:51)
[2025-04-01] MEDS: LANTUS 0.1 UNITS SC ×2 (08:51→20:05)
[2025-04-01] MEDS: LASIX 40 MG PO (08:51)
[2025-04-01 10:18] LABS: Troponin I 0.054 ng/ml
[2025-04-01 10:48] LABS: Glycohemoglobin (HgbA1c) 5.8 % (4.0-5.6)
[2025-04-01 11:24] LABS: Glucose - Point of Care 156 mg/dl (70-99)
[2025-04-01 11:25] VITALS: BP 94/74
[2025-04-01 11:27] LABS: Blood Urea Nitrogen 17 mg/dl (7-17); Calcium 9.2 mg/dl (8.4-10.2); Carbon Dioxide 26 mmol/L (22-30); Chloride 105 mmol/L (98-107); Estimated Creatinine Clearance 66 ml/min; Glucose 114 mg/dl (70-99); Potassium 4.3 mmol/L (3.5-5.1); Sodium 138 mmol/L (135-145); eGFR > 60.00
[2025-04-01] MEDS: NOVOLOG FLEXPEN-LOW RESISTANCE 1 UNITS SC ×2 (12:10→16:51)
[2025-04-01 14:54] LABS: APTT 122.7 Sec (23.4-35.0)
[2025-04-01 15:08] LABS: Troponin I 0.052 ng/ml
--- NOTE | 2025-04-01 15:08 | W.PN.UPDATE ---
Update Note
Progress Note Update
Pt seen briefly--sent to ED from our office yesterday for MAZA/dizziness/N/V. Echo completed yesterday with no MR, heart function normal, reviewed by Dr. Tineo. Pt found to have small PE, on heparin gtt. Pt reports feeling better, but still with some
headache/nausea. PRN medications helping. She is not on supplemental O2. Pt reports some burning at her midsternal incision site. I have ordered a lidocaine patch to be placed on either side of MSI if she needs it. incision is healing well at the
top, but lower portion has some scabbing and areas of crusted dermabond. I cleaned this with alcohol swabs, but some scabbing remains intact at lower portion. Wound care orders placed to continue cleaning MSI daily and please call CT surgery if
wound has any drainage or concerning features. We will continue to follow along peripherally.
[2025-04-01 15:33] VITALS: BP 134/76
--- NOTE | 2025-04-01 15:34 | CM ---
Patient seen bedside, initial assessment completed. Patient is a 59y F with PMH significant for HTN, DM-II and recent mitral valve repair who presents to ED complaining of headache, nausea and malaise.
Patient currently resides w/ her friend in a single story trailer home, 5 steps to enter from the outside. Patient recently moved on 03/26 but has been staying w/ her friend as she doesn't have any furniture yet. Patient stated she may be going to
her own home at d/c. Patient is independent w/ the use of a cane and RW, independent w/ ADLs and personal care. Patient has a shower chair that she does not use and a commode. Patient was recently discharged last week from [facility].
Current w/ a CT transitional VN.
Address, points of contact and insurance verified
PCP: Holli Gunn
Pharmacy: [facility]
CM consulted for advanced directive. Patient provided a packet and will review
Plan: Anticipating home, will watch for any needs
[2025-04-01] MEDS: LIDOCAINE 4% PATCH 1 PATCH TOPICAL (15:40)
[2025-04-01] MEDS: HEPARIN 25000 UNITS/250 ML IV (15:41)
--- NOTE | 2025-04-01 16:03 | W.PN.HOSP.TC ---
Today's Communication/Plan
-
see plan
Assessment / Plan
Assessment / Plan
Impression.
Patient is a 59y F with PMH significant for HTN, DM-II and recent mitral valve repair who presents to ED complaining of headache, nausea and malaise. Patient was seen by CT Surgery today in follow-up and sent to the ED for evaluation. Patient
reports perhaps some mild, intermittent chest pain. No SOB. She has a prior h/o PE (always R lower) and states that current symptoms do not feel similar.
Presentation with intermittent diffuse chest pain.
Right lower lobe pulmonary embolism acute versus chronic
Conditions prior to admission:
Status post radical mitral valve repair for severe mitral regurgitation 03/04/2025.
JAK2 polycythemia vera with history of hypercoagulable complications and multiple episodes of pulmonary embolism on Xarelto [employer].
Von Willebrand disease.
Obstructive sleep apnea on CPAP.
Type 2 diabetes.
Hypertension�dyslipidemia
Class I obesity with BMI of 34.
History of right subdural hematoma status post requiring neurosurgical intervention 02/13.
CKD stage II with baseline creatinine 1.2.
Depression.
History of duodenal ectasia
Tobacco use disorder
Plan:
Presents with intermittent chest pain without exertional dyspnea
Stable hemodynamic and respiratory status.
CT scan of the chest with right lower lobe pulmonary embolism.
Echocardiogram 03/31/2025:
1. Normal left ventricular size and function. No regional wall motion abnormalities. The estimated ejection fraction is 65%.
2. Severely dilated left atrium left atrium.
3. Mildly dilated right atrium.
4. No aortic stenosis or aortic insufficiency.
5. #30 annuloplasty ring, 2 harriet cords and cleft closure 03/04/25 mitral valve prosthetic ring is noted. Trivial residual mitral regurgitation
6. Severe tricuspid regurgitation. Estimated pulmonary artery pressure of 58 mmHg assuming a right atrial pressure of 8 mmHg.
7. When compared to the most recent echocardiogram from 03/07/2025, there has been no change in the mitral valve. Estimated pulmonary artery systolic pressure has increased from 46 mmHg to 58 mmHg.
On Xarelto [employer].
Recent mitral valve repair at that time bridged with IV heparin.
Noted with worsening pulmonary hypertension on echocardiogram.
At this point? If this is acute versus chronic PE with Xarelto failure.
Check lower extremity Doppler.
Consider VQ scan.
Pulmonary/hematology consultation
JAK2 positive polycythemia vera.
Continue hydroxyurea.
Type 2 diabetes/IDDM.
Update hemoglobin A1c.
Continue Lantus 10 units twice daily.
Continue basal bolus protocol with serial Accu-Cheks.
Continue Farxiga
Chronic CHF preserved EF.
Status post mitral valve repair.
Continue Lasix.
Continue Farxiga
History of gastrointestinal ectasias.
Continue PPI
Depression/anxiety.
Continue Klonopin, Seroquel, zolpidem, bupropion
Full code
DVT prophylaxis IV heparin
Anticipated Discharge: 24 - 48 hours
Subjective/Interval History
-
Date of Service: April 01, 2025
Objective Data
-
Labs:
Laboratory Results
04/01/25 04/01/25 04/01/25
03:59 06:00 09:45
WBC 8.6
Hgb 10.9 L
Hct 36.1 L
Plt Count 242
APTT Cancelled > 200 H*
Sodium Cancelled Cancelled 138
Potassium Cancelled Cancelled 4.3
Chloride Cancelled Cancelled 105
Carbon Dioxide Cancelled Cancelled 26
BUN Cancelled Cancelled 17
Creatinine Cancelled Cancelled 1.0
Glucose Cancelled Cancelled 114 H
Calcium Cancelled Cancelled 9.2
04/01/25 04/01/25
14:29 21:30
WBC
Hgb
Hct
Plt Count
APTT 122.7 H Pending
Sodium
Potassium
Chloride
Carbon Dioxide
BUN
Creatinine
Glucose
Calcium
Vital Signs:
Vital Signs
Temp Pulse Resp BP Pulse Ox
97.9 F 68 17 134/76 96
04/01/25 15:33 04/01/25 15:33 04/01/25 15:33 04/01/25 15:33 04/01/25 15:33
I&O
03/31/25 04/01/25 04/02/25
06:59 06:59 06:59
Intake Total 119 / 119
Output Total 50 / 50
Balance 69 / 69
Physical Exam
-
General: Well Developed and No Apparent Distress
HEENT: Normocephalic, Atraumatic and Moist Mucous Membranes
Respiratory: Clear to Auscultation
Cardiac: Regular Rhythm and S1/S2; Negative Murmur, Rub or Gallop
GI: Soft, Nontender, Nondistended and Normal Bowel Sounds; Negative Organomegaly
Rectal: Deferred by Provider
Musculoskeletal: No Clubbing, No Cyanosis and No Edema
Skin: Negative Rash
Neuro: Nonfocal/Grossly Intact
[2025-04-01 16:18] LABS: Glucose - Point of Care 174 mg/dl (70-99)
[2025-04-01] MEDS: PEPCID 20 MG PO (16:55)
[2025-04-01 19:50] VITALS: BP 137/84
[2025-04-01] MEDS: REMOVE LIDOCAINE PATCH 1 PATCH REMOVE (20:01)
[2025-04-01 20:04] LABS: Glucose - Point of Care 197 mg/dl (70-99)
[2025-04-01] MEDS: ZOFRAN 4 MG IV (20:21)
[2025-04-01 20:51] LABS: Glucose - Point of Care 209 mg/dl (70-99)
[2025-04-01 22:27] LABS: APTT 91.5 Sec (23.4-35.0)
[2025-04-01 22:38] LABS: Troponin I 0.046 ng/ml
[2025-04-01 23:31] VITALS: BP 121/75
[2025-04-02 03:28] VITALS: BP 131/77
[2025-04-02 05:08] LABS: Hematocrit 35.0 % (37.0-47.0); Hemoglobin 10.6 g/dL (12.0-16.0); Mean Corp Hgb Conc. 30.3 g/dL (33.0-37.0); Mean Corpuscular Volume 119.9 fL (81.0-99.0); Platelet Count 226 10^3/uL (130-400); Red Cell Dist. Width 18.6 % (11.5-14.5)
[2025-04-02 05:14] LABS: APTT 88.3 Sec (23.4-35.0)
--- NOTE | 2025-04-02 07:28 | PN.CDI ---
CDI
- -
CDI:
Physician Documentation Request
Admit Date: 03/31/25 22:16
Dear Doctor Corbin,
Please review the following and provide your response in the progress notes.
Clinical Indicators:
Laboratory Tests
03/31/25 04/01/25 04/01/25
16:58 03:59 09:45
Troponin I 0.047 H* 0.055 H* 0.054 H*
04/01/25 04/01/25
14:29 22:05
Troponin I 0.052 H* 0.046 H*
Based on the above and your clinical assessment, please clarify in the progress notes, the appropriate diagnosis, if significant, that supports the above abnormalities and additional evaluation, monitoring and/or treatment rendered:
Non-ischemic myocardial injury
Abnormal lab value, clinically insignificant
Other(please specify)
Use of terms such as suspected, likely, concern for, or probable (associated with a specific diagnosis that is being evaluated, monitored, or treated as if it exists) are acceptable and can be coded in the inpatient setting, when documented at the
time of discharge.
Thank you,
Agnes Childress RN BSN CCDS
CDI Specialist
Please contact via tiger text
Please use your independent medical judgment in providing your response.
--- NOTE | 2025-04-02 07:31 | PN.CDI ---
CDI
- -
CDI:
Physician Documentation Request
Admit Date: 03/31/25 22:16
Dear Doctor Corbin,
Please review the following and provide your response in the progress notes.
Clinical Indicators:
Laboratory Tests
03/31/25 04/01/25 04/02/25
16:58 03:59 04:43
Hgb 12.4 10.9 L 10.6 L
Hct 39.4 36.1 L 35.0 L
Based on the above, could you clarify in the progress notes, the appropriate diagnosis, if significant, that supports the above abnormalities and additional evaluation, monitoring and/or treatment rendered:
Precipitous drop in hematocrit
Abnormal lab value, clinically insignificant
Other(please specify)
Use of terms such as suspected, likely, concern for, or probable (associated with a specific diagnosis that is being evaluated, monitored, or treated as if it exists) are acceptable and can be coded in the inpatient setting, when documented at the
time of discharge.
Thank you,
Agnes Childress RN BSN CCDS
CDI Specialist
Please contact via tiger text
Please use your independent medical judgment in providing your response.
[2025-04-02 07:35] VITALS: BP 109/78
[2025-04-02 08:35] LABS: Glucose - Point of Care 92 mg/dl (70-99)
[2025-04-02] MEDS: NOVOLOG FLEXPEN-LOW RESISTANCE SC ×3 (09:02→17:15)
[2025-04-02] MEDS: KCL 20 MEQ PO (09:03)
[2025-04-02] MEDS: WELLBUTRIN XL (24 hour extended release) 150 MG PO (09:03)
[2025-04-02] MEDS: MAGNESIUM OXIDE 400 MG PO (09:03)
[2025-04-02] MEDS: PROTONIX 40 MG PO ×2 (09:03→21:10)
[2025-04-02] MEDS: FARXIGA 10 MG PO (09:03)
[2025-04-02] MEDS: HYDREA 1500 MG PO (09:03)
[2025-04-02] MEDS: WELLBUTRIN XL (24 hour extended release) 300 MG PO (09:03)
[2025-04-02] MEDS: LANTUS 0.1 UNITS SC ×2 (09:04→21:12)
[2025-04-02] MEDS: LIDOCAINE 4% PATCH 1 PATCH TOPICAL (09:04)
[2025-04-02] MEDS: LASIX 40 MG PO (09:04)
[2025-04-02] MEDS: KLONOPIN 1 MG PO ×3 (09:04→21:14)
[2025-04-02] MEDS: VITAMIN D3 (cholecalciferol) 20 MCG PO (09:05)
--- NOTE | 2025-04-02 09:05 | CON.ONC ---
Consultation
-
Date Consultation Requested: 04/01/25
Date Consultation Performed: 04/02/25
Requesting Provider: Dr. Alaniz
Performing Provider: Dr. David Mendosa and Dr. Gena Pelaez
Reason for Consultation: Pulmonary embolism on CT, possible Xarelto failure
Impression
Impression
# History of chronic pulmonary embolism/VTE
#Mitral valve regurgitation status post mitral valve repair
# Pulmonary hypertension
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
#Von Willebrand's disease
Plan
Plan
- Patient with history of pulmonary embolism (2018, 2023), currently on heparin drip. Recent CT chest showed findings consistent with an organized/likely chronic clot rather than new pulmonary embolism. Will order D-dimer to evaluate for acute
thrombus activity. If D-dimer is low with no evidence of acute PE, plan to transition back to Xarelto. Continue heparin drip for now.
-Patient's symptoms including nausea and headache started 2 days after mitral valve replacement 03/04/2025. Possibly related to postoperative medications. Distant heart sounds on auscultation. Appreciate cardiology consult.
-Monitor vitals and oxygen saturation closely, assess for any signs of decompensation.
- Patient has history of von Willebrand's disease which adds to bleeding risk. Trend CBC.
- History of polycythemia vera- continue hydroxyurea to maintain hematocrit below 45%. Trend CBC.
- Continue supportive care with antiemetics, hydration and pain control as needed.
- Patient follows up with Dr. Marquez Dejesus at [facility].
Patient History
History of Present Illness
Patient is a 59-year-old female with a past medical history of JAK2 positive polycythemia vera, von Willebrand's disease, hypertension and recent mitral valve repair on 03/04/2025 who presented to the ED with headache, nausea and fatigue that started
2 days after the procedure. Patient states she also has been having intermittent diffuse chest pain. Imaging revealed lower lobe pulmonary embolism (acute versus chronic) and worsening pulmonary hypertension on echo. She is currently on
hydroxyurea for polycythemia vera and has been compliant to Xarelto 20 mg prior to admission. She denies bleeding, abdominal pain, nausea, vomiting or any other symptoms.
Past-Medical/Surgical History
Pulmonary embolism 2018 & 2023 w/thrombectomy
Obstructive sleep apnea with CPAP use
Hypertension
Tobacco dependence
Type 2 diabetes
Depression
Hyperlipidemia
Von Willebrand disease
Polycythemia vera
Right subdural hematoma from fall requiring neurosurgical intervention (01/29/2021)
Iliac artery thrombosis
Cerebral hemorrhage
Chronic kidney disease stage II
Pulmonary hypertension
Past Surgical History:
2004
Tonsillectomy
Right L4-L5 IL�LAUREN (02/01/2022)
Cautery of duodenal ectasia stomach ectasia at [facility] (2022)
thromboectomy 2018 & 2023
Right subdural hematoma from fall requiring neurosurgical intervention (01/29/2021)
mitral valve repair
Patient Medication
�Medication �Instructions �Recorded �Confirmed �Last Taken �Type
clonazepam 1 mg tablet 1 mg PO TID Mental Health/Anxiety 10/08/20 03/31/25 03/31/25 History
hydroxyurea 500 mg capsule 1,500 mg PO DAILY POLYCYTHEMIA VERA 10/08/20 03/31/25 03/31/25 History
rivaroxaban 20 mg tablet (Xarelto) 20 mg PO DAILY Blood clot 10/08/20 03/31/25 03/31/25 History
prevention/tx
atorvastatin 40 mg tablet 40 mg PO HS High cholesterol 01/12/21 03/31/25 03/30/25 History
bupropion HCl 150 mg 24 hr tablet, 150 mg PO DAILY mental health 06/15/22 03/31/25 03/31/25 History
extended release (Wellbutrin XL)
dapagliflozin propanediol 10 mg 10 mg PO DAILY Heart 06/15/22 03/31/25 03/31/25 History
tablet (Farxiga) Failure/DIABETES
cholecalciferol (vitamin D3) 10 20 mcg PO DAILY Supplement 12/26/24 03/31/25 03/31/25 History
mcg (400 unit) chewable tablet
(Vitamin D3)
famotidine 20 mg tablet 20 mg PO DAILYPRN PRN GERD 12/26/24 03/31/25 Unknown History
fluticasone propionate 50 1 spray intranasal DAILYPRN PRN 12/26/24 03/31/25 01/04/25 08:00 History
mcg/actuation nasal allergies
spray,suspension
insulin glargine 100 unit/mL (3 10 unit SC BID Diabetes 12/26/24 03/31/25 03/31/25 History
mL) subcutaneous pen (Basaglar
KwikPen U-100 Insulin)
magnesium 200 mg tablet 400 mg (2 x 200 mg) PO DAILY 03/06/25 03/31/25 03/31/25 Rx
Supplement #0 tabs
melatonin 10 mg tablet 10 mg PO HS insomnia #0 tabs 03/06/25 03/31/25 03/30/25 Rx
pantoprazole 40 mg tablet,delayed 40 mg PO BID Gastrointestinal 03/06/25 03/31/25 03/31/25 Rx
release issue #0 tabs
quetiapine 100 mg tablet (Seroquel) 100 mg PO HS Mental Health/Anxiety 03/06/25 03/31/25 03/30/25 Rx
#0 tabs
zolpidem 12.5 mg tablet,extended 12.5 mg PO HS insomnia #0 tabs 03/06/25 03/31/25 03/30/25 Rx
release,multiphase
furosemide 40 mg tablet 40 mg PO DAILY Fluid 03/11/25 03/31/25 03/31/25 Rx
retention/Swelling #30 tabs
midodrine 5 mg tablet 5 mg PO TID@0800,1300,1800 PRN SBP 03/11/25 03/31/25 Unknown Rx
</= 100 #20 tabs
potassium chloride 20 mEq 20 meq PO DAILY Supplement #30 tabs 03/11/25 03/31/25 03/31/25 Rx
tablet,extended release(part/cryst)
albuterol sulfate 90 mcg/actuation 2 puff inhalation R Q6HPRN PRN sob 03/31/25 03/31/25 Unknown History
aerosol inhaler
bupropion HCl 300 mg 24 hr tablet, 300 mg PO DAILY 03/31/25 03/31/25 03/31/25 History
extended release (Wellbutrin XL)
ibuprofen 200 mg tablet (Advil) 400 mg PO Q6HPRN PRN mild pain 03/31/25 03/31/25 03/30/25 History
simethicone 80 mg chewable tablet 80 mg PO DAILYPRN PRN gas pains 03/31/25 03/31/25 03/30/25 History
Active Medications
Generic Name Dose Route Start Last Admin
Trade Name Freq PRN Reason Stop Dose Admin
Acetaminophen 650 mg 04/01/25 21:50
Acetaminophen 325 Mg Tablet PO 04/29/25 21:49
Q4HPRN PRN
headache,mild pain,fever>100.4
Albuterol 2 puff 03/31/25 23:02
Albuterol Hfa [90 Mcg/Dose] Inhaler INH
R Q6HPRN PRN
sob
Protocol
Atorvastatin Calcium 40 mg 03/31/25 23:02 04/01/25 22:02
Atorvastatin (Lipitor) 40 Mg Tablet PO 04/28/25 23:01 40 mg
HS REINIER Administration
Bupropion HCl 300 mg 04/01/25 08:00 04/01/25 08:51
Bupropion (24hr) Extended Release 300 Mg Tablet PO 04/29/25 07:59 300 mg
DAILY REINIER Administration
Bupropion HCl 150 mg 04/01/25 08:00 04/01/25 08:51
Bupropion (24hr) Extended Release 150 Mg Tablet PO 04/29/25 07:59 150 mg
DAILY REINIER Administration
Cholecalciferol 20 mcg 04/01/25 08:00 04/01/25 08:50
Cholecalciferol (Vitamin D3) 10 Mcg Tablet (400 Units) PO 04/29/25 07:59 20 mcg
DAILY REINIER Administration
Clonazepam 1 mg 03/31/25 23:02 04/01/25 22:02
Clonazepam 1 Mg Tablet PO 04/28/25 23:01 1 mg
TID REINIER Administration
Dapagliflozin 10 mg 04/01/25 08:00 04/01/25 08:50
Dapagliflozin (Farxiga) 10 Mg Tablet PO 04/29/25 07:59 10 mg
DAILY REINIER Administration
Dextrose 12.5 grams 03/31/25 23:29
Dextrose 50% (0.5 Grams/Ml) 50 Ml Syringe IV 04/28/25 23:28
[id number] PRN
hypoglycemia
Protocol
Famotidine 20 mg 03/31/25 23:02 04/01/25 16:55
Famotidine 20 Mg Tablet PO 04/28/25 23:01 20 mg
DAILYPRN PRN Administration
GERD
Furosemide 40 mg 04/01/25 08:00 04/01/25 08:51
Furosemide 40 Mg Tablet PO 04/29/25 07:59 40 mg
DAILY REINIER Administration
Glucagon 1 mg 03/31/25 23:29
Glucagon 1 Mg Vial IM 04/28/25 23:28
PRN PRN
hypoglycemia
Protocol
Heparin Sodium 7,400 units 03/31/25 22:04
Heparin 80 Units/Kg Rebolus-Do Not Discard IV 04/28/25 22:03
PRN PRN
PTT < OR = 64 seconds
Heparin Sodium 3,700 units 03/31/25 22:05
Heparin 40 Units/Kg Rebolus-Do Not Discard IV 04/28/25 22:04
PRN PRN
PTT = 64.1 to 72.9 seconds
Hydroxyurea 1,500 mg 04/01/25 08:00 04/01/25 08:50
Hydroxyurea 500 Mg Capsule PO 04/29/25 07:59 1,500 mg
DAILY REINIER Administration
Heparin Sodium 25,000 units in 250 mls @ 0 mls/hr 03/31/25 22:00 04/01/25 15:41
Heparin 57101 Units/250 Ml IV 250 mls
PER PROTOCOL REINIER Administration
Protocol
Per Protocol
Insulin Glargine 10 units/ 0.1 mls @ 0 mls/hr 04/01/25 08:00 04/01/25 20:05
Device SC 04/29/25 07:59 0.1 mls
BID REINIER Administration
As Directed
Insulin Aspart 0 units 04/01/25 07:30 04/01/25 16:51
Insulin Aspart Low Resistance 300 Units/3 Ml Pen.Injctr SC 04/29/25 07:29 1 units
AC REINIER Administration
Protocol
Lidocaine 1 patch 04/01/25 15:15 04/01/25 15:40
Lidocaine 4% Topical Patch TOPICAL 04/29/25 15:14 1 patch
DAILY REINIER Administration
Protocol
Magnesium Oxide 400 mg 04/01/25 08:00 04/01/25 08:51
Magnesium Oxide 400 Mg Tablet PO 04/29/25 07:59 400 mg
DAILY REINIER Administration
Melatonin 10 mg 03/31/25 23:30 04/01/25 22:02
Melatonin 5 Mg Tablet PO 04/28/25 23:29 10 mg
HS REINIER Administration
Midodrine 5 mg 04/01/25 08:00
Midodrine 5 Mg Tablet PO 04/29/25 07:59
TID@0800,1300,1800 PRN
SBP </= 100
Ondansetron HCl 4 mg 04/01/25 20:13 04/01/25 20:21
Ondansetron 4 Mg/2 Ml Vial IV 04/29/25 20:12 4 mg
Q6HPRN PRN Administration
nausea/vomiting
Pantoprazole Sodium 40 mg 04/01/25 08:00 04/01/25 20:00
Pantoprazole 40 Mg Delayed Release Tablet PO 04/29/25 07:59 40 mg
BID REINIER Administration
Patch Removal 0 patch 04/01/25 20:00 04/01/25 20:01
Remove Lidocaine Patch REMOVE 04/29/25 19:59 1 patch
DAILY@2000 REINIER Administration
Potassium Chloride 20 meq 04/01/25 08:00 04/01/25 08:50
Potassium Chloride 20 Meq Extended Release Tablet PO 04/29/25 07:59 20 meq
DAILY REINIER Administration
Quetiapine Fumarate 100 mg 03/31/25 23:02 04/01/25 22:02
Quetiapine 100 Mg Tablet PO 04/28/25 23:01 100 mg
HS REINIER Administration
Sodium Chloride 0 flush 03/31/25 23:00
Sodium Chloride 0.9% (Flush) Syringe IV 04/28/25 22:59
PER PROTOCOL REINIER
Zolpidem Tartrate 10 mg 03/31/25 23:00 04/01/25 22:01
Zolpidem Tartrate 10 Mg Tablet PO 04/28/25 22:59 10 mg
HS REINIER Administration
Review of Systems
-
History Source: Patient
All Other Systems: Reviewed and Negative
Constitutional: Reports Fatigue
EENT: Reports No Symptoms
Respiratory: Reports Cough (dry)
Cardiac: Reports Chest Pain
GI: Reports Nausea
Breast: Reports No Symptoms
: Reports No Symptoms
Musculoskeletal: Reports No Symptoms
Skin: Reports No Symptoms
Neuro: Reports Headache
Hematologic/Lymphatic: Reports No Symptoms
Allergy / Immunology: Reports No Symptoms
Physical Exam
-
General: Well Developed, Well Nourished, No Apparent Distress, Comfortable and Conversant
HEENT: Moist Mucous Membranes
Cardiology: Normal Sinus Rhythm, S1 (distant heart sounds), S2 and Murmur
Pulmonary: Clear
GI: Soft and Normal Bowel Sounds
Musculoskeletal: No Clubbing, No Cyanosis and No Edema
Skin: Warm
Hematologic / Lymphatic: No Lymphadenopathy
Psych: Calm
Labs
Lab Results
WBC 7.7 10^3/uL (4.8-10.8) 04/02/25 04:43
RBC 2.92 10^6/uL (4.20-5.40) L 10 04:43
Hgb 10.6 g/dL (12.0-16.0) L 04/02/25 04:43
Hct 35.0 % (37.0-47.0) L 04/02/25 04:43
MCV 119.9 fL (81.0-99.0) H 04/02/25 04:43
MCH 36.3 pg (27.0-31.0) H 04/02/25 04:43
MCHC 30.3 g/dL (33.0-37.0) L 04/02/25 04:43
RDW 18.6 % (11.5-14.5) H 04/02/25 04:43
Plt Count 226 10^3/uL (130-400) 04/02/25 04:43
MPV 10.2 fL (7.4-10.4) 04/02/25 04:43
Abs Immat Gran (auto) 0.0 10^3/uL (0-0.05) 03/31/25 16:58
Absolute Neuts (auto) 6.1 10^3/uL (1.4-6.5) 03/31/25 16:58
Absolute Lymphs (auto) 1.8 10^3/uL (1.2-3.4) 03/31/25 16:58
Absolute Monos (auto) 0.5 10^3/uL (0.1-0.6) 03/31/25 16:58
Absolute Eos (auto) 0.2 10^3/uL (0-0.7) 03/31/25 16:58
Absolute Basos (auto) 0.1 10^3/uL (0-0.2) 03/31/25 16:58
Immature Gran % 0.3 % (0-0.5) 03/31/25 16:58
Neutrophils % 70.9 % (42.2-75.2) 03/31/25 16:58
Lymphocytes % 20.6 % (20.5-51.1) 03/31/25 16:58
Monocytes % 5.3 % (1.7-9.3) 03/31/25 16:58
Eosinophils % 2.0 % (0-6) 03/31/25 16:58
Basophils % 0.9 % (0-2) 03/31/25 16:58
Creatinine 1.0 mg/dL (0.6-1.0) 04/01/25 09:45
Vital Signs
Vital Signs
Temp Pulse Resp BP Pulse Ox
98.1 F 69 20 109/78 98
04/02/25 07:35 04/02/25 07:35 04/02/25 07:35 04/02/25 07:35 04/02/25 07:35
--- NOTE | 2025-04-02 09:21 | CON.PUL ---
Consultation
Consultation Request
Date/Time Consultation Requested: 04/01/25
Date/Time Consultation Performed: 04/02/25
Performing Provider: Juanjose
Reason for Consultation: PE
Medical History
-
History of Present Illness:
Patient is a 59-year-old female with previous history of hypertension, diabetes, mitral valve repair, previous history of PE on Xarelto presenting to ER with complaints of headache, nausea and malaise. She was seen by CT surgery day of admission
and was sent to the ER for evaluation. She had CT PE chest completed which demonstrates right lower lobe PE which has been present on previous occasions. She did not feel any worsening shortness of breath, wheezing or tightness. She did have
intermittent chest pain.
Allergies / Home Medications
Allergies
Allergy/AdvReac Type Severity Reaction Status Date / Time
No Known Allergies Allergy Verified 03/31/25 14:49
Home Medications
�Medication �Instructions �Recorded �Confirmed �Last Taken �Type
clonazepam 1 mg tablet 1 mg PO TID Mental Health/Anxiety 10/08/20 03/31/25 03/31/25 History
hydroxyurea 500 mg capsule 1,500 mg PO DAILY POLYCYTHEMIA VERA 10/08/20 03/31/25 03/31/25 History
rivaroxaban 20 mg tablet (Xarelto) 20 mg PO DAILY Blood clot 10/08/20 03/31/25 03/31/25 History
prevention/tx
atorvastatin 40 mg tablet 40 mg PO HS High cholesterol 01/12/21 03/31/25 03/30/25 History
bupropion HCl 150 mg 24 hr tablet, 150 mg PO DAILY mental health 06/15/22 03/31/25 03/31/25 History
extended release (Wellbutrin XL)
dapagliflozin propanediol 10 mg 10 mg PO DAILY Heart 06/15/22 03/31/25 03/31/25 History
tablet (Farxiga) Failure/DIABETES
cholecalciferol (vitamin D3) 10 20 mcg PO DAILY Supplement 12/26/24 03/31/25 03/31/25 History
mcg (400 unit) chewable tablet
(Vitamin D3)
famotidine 20 mg tablet 20 mg PO DAILYPRN PRN GERD 12/26/24 03/31/25 Unknown History
fluticasone propionate 50 1 spray intranasal DAILYPRN PRN 12/26/24 03/31/25 01/04/25 08:00 History
mcg/actuation nasal allergies
spray,suspension
insulin glargine 100 unit/mL (3 10 unit SC BID Diabetes 12/26/24 03/31/25 03/31/25 History
mL) subcutaneous pen (Basaglar
KwikPen U-100 Insulin)
magnesium 200 mg tablet 400 mg (2 x 200 mg) PO DAILY 03/06/25 03/31/25 03/31/25 Rx
Supplement #0 tabs
melatonin 10 mg tablet 10 mg PO HS insomnia #0 tabs 03/06/25 03/31/25 03/30/25 Rx
pantoprazole 40 mg tablet,delayed 40 mg PO BID Gastrointestinal 03/06/25 03/31/25 03/31/25 Rx
release issue #0 tabs
quetiapine 100 mg tablet (Seroquel) 100 mg PO HS Mental Health/Anxiety 03/06/25 03/31/25 03/30/25 Rx
#0 tabs
zolpidem 12.5 mg tablet,extended 12.5 mg PO HS insomnia #0 tabs 03/06/25 03/31/25 03/30/25 Rx
release,multiphase
furosemide 40 mg tablet 40 mg PO DAILY Fluid 03/11/25 03/31/25 03/31/25 Rx
retention/Swelling #30 tabs
midodrine 5 mg tablet 5 mg PO TID@0800,1300,1800 PRN SBP 03/11/25 03/31/25 Unknown Rx
</= 100 #20 tabs
potassium chloride 20 mEq 20 meq PO DAILY Supplement #30 tabs 03/11/25 03/31/25 03/31/25 Rx
tablet,extended release(part/cryst)
albuterol sulfate 90 mcg/actuation 2 puff inhalation R Q6HPRN PRN sob 03/31/25 03/31/25 Unknown History
aerosol inhaler
bupropion HCl 300 mg 24 hr tablet, 300 mg PO DAILY 03/31/25 03/31/25 03/31/25 History
extended release (Wellbutrin XL)
ibuprofen 200 mg tablet (Advil) 400 mg PO Q6HPRN PRN mild pain 03/31/25 03/31/25 03/30/25 History
simethicone 80 mg chewable tablet 80 mg PO DAILYPRN PRN gas pains 03/31/25 03/31/25 03/30/25 History
Review of Systems
Vitals / Labs / Diagnostic Testing
Vital Signs
Temp Pulse Resp BP Pulse Ox
98.1 F 69 20 109/78 98
04/02/25 07:35 04/02/25 07:35 04/02/25 07:35 04/02/25 07:35 04/02/25 07:35
Lab Data
04/02/25 04:43
04/01/25 09:45
Laboratory Results
04/01/25 04/01/25 04/02/25
14:29 22:05 04:43
APTT 122.7 H 91.5 H 88.3 H
Microbiology
03/31/25 16:44 Nasal Swab Influenza Types A & B (FELICITA) - Final
Negative for Influenza A & B, NAAT
Negative results must be combined with clinical observations
and patient history.
Nucleic Acid Amplification test (NAAT)performed on the
[employer] platform.
Diagnostic Testing:
Assessment
-
Patient is a 59-year-old female with previous history of hypertension, diabetes, mitral valve repair, previous history of PE on Xarelto presenting to ER with complaints of headache, nausea and malaise. She was seen by CT surgery day of admission
and was sent to the ER for evaluation. She had CT PE chest completed which demonstrates right lower lobe PE which has been present on previous occasions. She did not feel any worsening shortness of breath, wheezing or tightness. She did have
intermittent chest pain. We are consulted for evaluation.
RLL PE, acute vs chronic
Nausea
Chest pain
Malaise
Chronic conditions [employer]:
Restrictive lung disease
Pulmonary nodule
Former tobacco smoker (quit 2021)
History of PE (2018 and 2023) on Xarelto with history of thrombectomy
Depression
s/p POTS stimulator
Right subdural hematoma from fall requiring neurosurgical intervention ([place] � 01/29/2021)
Iliac artery thrombosis
Cerebral hemorrhage
Chronic diastolic heart failure
History of pneumonia
Severe mitral valve insufficiency s/p radical mitral valve repair + left atrial appendage exclusion 03/04/25
CKD
Hypertension
Hyperlipidemia
JAK2 gene mutation with coagulopathy
Von Willebrand's disease
DM type II
History of PCV
PTSD
History of CVA
Severe MARIANNA, HST 2021 AHI 35.5
Obesity, BMI 33
Plan:
No oxygen was needed on admission, currently saturating >90% on RA
She has not needed oxygen at baseline
Prior history of lung disease is noted including restrictive lung disease, history of recurrent PE, MARIANNA on CPAP, pulmonary nodule, former smoker
She does follow in our office, most recent PFT indicating restrictive pattern that is overall moderately reduced
This is likely based on her BMI and sedentary lifestyle
Suspect patient has acute PE rather than chronic
CT obtained indicating right lower lobe findings but prior CT scan in 02/2025 did not have contrast, report did not indicate there was presence of PE
The last PE known to record was at [facility] in 2023, I have requested records for CT scan at that time
She had [facility], records are not available for review--presumably her thrombectomy was completed at that time as it was reportedly bilateral and with high burden
She had prior contrast CT imaging in 2020 in our records that indicate no PE
She notes that she had interrupted her Xarelto following discharge on last admission from 02/28-03/26, presumably this may have been due to a brand-new embolus
Other features that may suggest new PE as well as that her echocardiogram is demonstrating worsening pulmonary hypertension
Prior ECHO results are reviewed in comparison to 03/31 study
She also has new severely dilated left atrium, mildly dilated right atrium
She had recently undergone mitral valve replacement 03/04--valve has trivial regurg
She is noted to have severe tricuspid regurgitation with estimated PA pressure 58, which has been increased from 46
Weight loss measures recommended
Obesity likely contributing to respiratory symptoms
MARIANNA history, continue PAP
Will need outpatient pulmonary evaluation in our office for PFTs and 6MWT
Reviewed with patient
We will follow
Diagnostic Data
Chest X-Ray: CXR 05/03/19: Slight increase in peribronchial markings in the mid to lower lung suggesting possible bronchitis. Possible basilar atelectasis.
Chest x-ray 08/21/20-NAD.
CXR 06/10/22- subtle bilateral interstitial infiltrates in upper and lower lung wylie.
CT Scan:
CHEST w/ IV 03/31/25- Examination is positive for pulmonary embolism involving the proximal aspect of the right lower lobe pulmonary artery. Comparing to prior examinations, question whether this could represent chronic artery embolism, with similar
appearance of right lower lobe pulmonary artery branches to unenhanced CT of the chest from February 28, 2025. Enlargement of the right atrium and right ventricle, findings suggestive of elevated right heart pressure. As warranted, consideration for
follow-up CT angiography of the chest after treatment, with particular attention to the right lower lobe pulmonary artery and its branches. Discoid atelectasis within both lungs. No significant pleural effusion or pericardial effusion. Fatty
infiltration of the liver.
CHEST W/O IV contrast 02/28/25- There are several solid pulmonary nodules in the right lung which are not definitively changed from 06/23/2021 which include a 4 mm solid nodule in the middle lobe (image #54, series #201), a 4.7 mm nodule in the
anterior segment of the right upper lobe (image #40), a 3.9 mm solid pulmonary nodule in the anterior segment of the right upper lobe (image #38), a 4.4 mm pulmonary nodule in the peripheral right upper lobe (image #38), and a 4.6 mm nodule in the
posterior segment of the right upper lobe (image #39). There are a few tiny subpleural and centrilobular nodules in the lingula which are not definitively changed, one measuring 4 mm in size (image #41). Many of the nodules are tiny subpleural
groundglass nodules in the anterior segment of the left upper lobe. Enlarged left atrium consistent with mitral valve regurgitation. Mild pulmonary arterial hypertension. Mild cylindrical bronchiectasis and bronchitis in the lower lobes. Moderate
scarring in the basilar segments of the right lower lobe with associated volume loss and mild elevation of the right hemidiaphragm.
CT chest 10/04/20-No pulmonary embolism, 3 mm left upper lobe pulmonary nodule
CT chest 06/23/21- 3mm AVERY nodule. sable
Echo:
ECHO 03/25/19: Normal left ventricular chamber size. Normal left ventricular systolic function. Left ventricular ejection fraction is 65%. Mild-moderate concentric left ventricular hypertrophy (1.3 cm). Stage II diastolic dysfunction suggestive of
abnormal relaxation and increased filling pressures. Severely dilated left atrium. Moderate, eccentric mitral regurgitation. Mild to moderate tricuspid regurgitation.
Echocardiogram 01/20/20-EF 70%, aortic sclerosis without stenosis
Echocardiogram 10/16/20-ES 60-65%, PA systolic 45, no change since December 2019
08/31/2022 with normal left ventricular size and systolic function with visually estimated ejection fraction 55% and normal regional wall motion. Moderate to severe concentric left ventricular hypertrophy. IVSD 1.6 cm. Normal RV size and systolic
function. Mild mitral regurgitation, improved. Trileaflet aortic valve without stenosis or regurgitation. Trace-mild tricuspid regurgitation. Estimated pulmonary artery pressure 45 mmHg assuming a right atrial pressure of 3 mmHg. No pericardial
effusion.
SHAVON 12/26/24: Normal left ventricular size and systolic function. No regional wall motion abnormalities are seen. The ejection fraction is estimated at 60-65%. Mild concentric left ventricular hypertrophy. Normal right ventricular size and function.
Thickened restricted mitral leaflets with reduced excursion suggestive of rheumatic mitral valve disease. Mitral sclerosis without stenosis; mean mitral valve gradient 3 mmHg. Severe central mitral regurgitation with severely dilated left atrium.
Moderate tricuspid regurgitation. Estimated pulmonary artery pressure is 50 mmHg assuming right atrial pressure of 3 mmHg.
ECHO 03/31/25- Normal left ventricular size and function. No regional wall motion abnormalities. The estimated ejection fraction is 65%.
2. Severely dilated left atrium left atrium.
3. Mildly dilated right atrium.
4. No aortic stenosis or aortic insufficiency.
5. #30 annuloplasty ring, 2 harriet cords and cleft closure 03/04/25 mitral valve prosthetic ring is noted. Trivial residual mitral regurgitation
6. Severe tricuspid regurgitation. Estimated pulmonary artery pressure of 58 mmHg assuming a right atrial pressure of 8 mmHg.
7. When compared to the most recent echocardiogram from 03/07/2025, there has been no change in the mitral valve. Estimated pulmonary artery systolic pressure has increased from 46 mmHg to 58 mmHg.
PFT's:
PFT 12/11/20-FEV1 1.08 L-40%, FVC 1.5 L-53%, no significant BD response, TLC 59%, RV 80%, DLCO 32%. Moderately severe restriction and severe reduction in diffusing capacity.
PFT 12/17/21. FVC of 1.97 or 70%, FEV1 of 1.54 or 70%. Ratio 78. TLC of 3.23 or 63%, RV/TLC ratio 36 or 92%, DLCO of 11.10 or 47%, DLCO/VA is 3.55 or 77% (moderate restriction, improved)
Spirometry 07/01/22- FVC 1.53 or 55%, FEV1 1.21 or 55% Ratio 79 (restricted pattern).
6MWT 07/01/22- RA 98%, HR 86 bpm, ambulated 1056 feet and maintained 96-98% on RA. HR increased to 105 bpm.
Reports and relevant images were personally reviewed.
Total time spent today was 75 minutes for this encounter. Time includes reviewing laboratory test/imaging results, reviewing pertinent medical records, obtaining and reviewing medical history, performing an appropriate exam, ordering medications,
tests and procedures. Time also includes documentation of this encounter, coordinating patient care and communicating with other healthcare professionals. Total time does not include separately billed tests performed on this date of service.
[2025-04-02 11:35] VITALS: BP 111/75
[2025-04-02 11:59] LABS: D-Dimer 1.27 ug/mlFEU (0.00-0.50)
[2025-04-02] MEDS: ZOFRAN 4 MG IV (12:11)
[2025-04-02 13:49] LABS: Glucose - Point of Care 147 mg/dl (70-99)
--- NOTE | 2025-04-02 13:50 | CM ---
Chart reviewed and plan is to home when stable, patient has been staying with a friend.
Plan; Home when stable.
[2025-04-02] MEDS: HEPARIN 25000 UNITS/250 ML IV (14:08)
[2025-04-02 15:35] VITALS: BP 130/84
[2025-04-02] MEDS: XARELTO 15 MG PO (16:31)
[2025-04-02 16:52] LABS: Glucose - Point of Care 121 mg/dl (70-99)
--- NOTE | 2025-04-02 17:24 | W.PN.HOSP.TC ---
Today's Communication/Plan
-
Transition to Xarelto
Discharge plan
Assessment / Plan
Assessment / Plan
Impression.
Patient is a 59y F with PMH significant for HTN, DM-II and recent mitral valve repair who presents to ED complaining of headache, nausea and malaise. Patient was seen by CT Surgery today in follow-up and sent to the ED for evaluation. Patient
reports perhaps some mild, intermittent chest pain. No SOB. She has a prior h/o PE (always R lower) and states that current symptoms do not feel similar.
Presentation with intermittent diffuse chest pain.
Right lower lobe pulmonary embolism acute versus chronic
Conditions prior to admission:
Status post radical mitral valve repair for severe mitral regurgitation 03/04/2025.
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
Von Willebrand disease.
Obstructive sleep apnea on CPAP.
Type 2 diabetes.
Hypertension�dyslipidemia
Class I obesity with BMI of 34.
History of right subdural hematoma status post requiring neurosurgical intervention 02/13.
CKD stage II with baseline creatinine 1.2.
Depression.
History of duodenal ectasia
Tobacco use disorder
Plan:
Presents with intermittent chest pain without exertional dyspnea
Stable hemodynamic and respiratory status.
CT scan of the chest with right lower lobe pulmonary embolism.
Echocardiogram 03/31/2025:
1. Normal left ventricular size and function. No regional wall motion abnormalities. The estimated ejection fraction is 65%.
2. Severely dilated left atrium left atrium.
3. Mildly dilated right atrium.
4. No aortic stenosis or aortic insufficiency.
5. #30 annuloplasty ring, 2 harriet cords and cleft closure 03/04/25 mitral valve prosthetic ring is noted. Trivial residual mitral regurgitation
6. Severe tricuspid regurgitation. Estimated pulmonary artery pressure of 58 mmHg assuming a right atrial pressure of 8 mmHg.
7. When compared to the most recent echocardiogram from 03/07/2025, there has been no change in the mitral valve. Estimated pulmonary artery systolic pressure has increased from 46 mmHg to 58 mmHg.
On Xarelto [employer].
Recent mitral valve repair at that time bridged with IV heparin.
Patient admitted for Xarelto interruption post recent discharge likely causing new event of pulmonary embolism
Noted with worsening pulmonary hypertension on echocardiogram.
Elevated D-dimer
All above suggesting acute PE.
Check lower extremity Doppler. Pending
Plan is to transition back to Xarelto with loading dose for 21 days
Discussed with pulmonary and hematology
JAK2 positive polycythemia vera.
Continue hydroxyurea.
Type 2 diabetes/IDDM.
Update hemoglobin A1c.
Continue Lantus 10 units twice daily.
Continue basal bolus protocol with serial Accu-Cheks.
Continue Farxiga
Chronic CHF preserved EF.
Status post mitral valve repair.
Continue Lasix.
Continue Farxiga
History of gastrointestinal ectasias.
Continue PPI
Depression/anxiety.
Continue Klonopin, Seroquel, zolpidem, bupropion
Full code
DVT prophylaxis IV heparin
Anticipated Discharge: Within 24 hours
Subjective/Interval History
-
Date of Service: April 02, 2025
Objective Data
-
Vital Signs:
Vital Signs
Temp Pulse Resp BP Pulse Ox
97.9 F 78 20 130/84 98
04/02/25 15:35 04/02/25 15:35 04/02/25 15:35 04/02/25 15:35 04/02/25 15:35
I&O
04/01/25 04/02/25 04/03/25
06:59 06:59 06:59
Intake Total 119 / 119 816 / 816 240 / 240
Output Total 50 / 50
Balance 69 / 69 816 / 816 240 / 240
Physical Exam
-
General: Well Developed and No Apparent Distress
HEENT: Normocephalic, Atraumatic and Moist Mucous Membranes
Respiratory: Clear to Auscultation
Cardiac: Regular Rhythm and S1/S2; Negative Murmur, Rub or Gallop
GI: Soft, Nontender, Nondistended and Normal Bowel Sounds; Negative Organomegaly
Rectal: Deferred by Provider
Musculoskeletal: No Clubbing, No Cyanosis and No Edema
Skin: Negative Rash
Neuro: Nonfocal/Grossly Intact
[2025-04-02 19:30] VITALS: BP 110/70
[2025-04-02 21:04] LABS: Glucose - Point of Care 222 mg/dl (70-99)
[2025-04-02] MEDS: REMOVE LIDOCAINE PATCH 1 PATCH REMOVE (21:10)
[2025-04-02] MEDS: MELATONIN 10 MG PO (21:11)
[2025-04-02] MEDS: LIPITOR 40 MG PO (21:11)
[2025-04-02] MEDS: AMBIEN 10 MG PO (21:12)
[2025-04-02] MEDS: SEROQUEL 100 MG PO (21:14)
[2025-04-02] MEDS: PEPCID 20 MG PO (23:06)
[2025-04-02 23:41] VITALS: BP 122/66
[2025-04-03 03:55] VITALS: BP 120/68
[2025-04-03 07:00] VITALS: BP 127/78
[2025-04-03 07:56] LABS: Glucose - Point of Care 173 mg/dl (70-99)
[2025-04-03] MEDS: NOVOLOG FLEXPEN-LOW RESISTANCE 1 UNITS SC ×2 (08:38→12:33)
[2025-04-03] MEDS: WELLBUTRIN XL (24 hour extended release) 150 MG PO (08:39)
[2025-04-03] MEDS: VITAMIN D3 (cholecalciferol) 20 MCG PO (08:44)
[2025-04-03] MEDS: PROTONIX 40 MG PO (08:45)
[2025-04-03] MEDS: KCL 20 MEQ PO (08:45)
[2025-04-03] MEDS: WELLBUTRIN XL (24 hour extended release) 300 MG PO (08:46)
[2025-04-03] MEDS: HYDREA 1500 MG PO (08:46)
[2025-04-03] MEDS: MAGNESIUM OXIDE 400 MG PO (08:47)
[2025-04-03] MEDS: KLONOPIN 1 MG PO (08:48)
[2025-04-03] MEDS: FARXIGA 10 MG PO (08:49)
[2025-04-03] MEDS: LASIX 40 MG PO (08:49)
[2025-04-03] MEDS: LIDOCAINE 4% PATCH 1 PATCH TOPICAL (08:50)
[2025-04-03] MEDS: XARELTO 15 MG PO (08:55)
[2025-04-03] MEDS: LANTUS 0.1 UNITS SC (09:01)
[2025-04-03 09:02] LABS: APTT 38.2 Sec (23.4-35.0)
--- NOTE | 2025-04-03 10:07 | W.PN.PUL3 ---
Today's Communication / Plan
-
No new complaints, stable on RA
Records from [facility] reviewed, her burden this time is small--I reviewed with patient
Ok to resume OAC and can plan to rescan if needed as OP
We will arrange OP FU
Assessment
-
Patient is a 59-year-old female with previous history of hypertension, diabetes, mitral valve repair, previous history of PE on Xarelto presenting to ER with complaints of headache, nausea and malaise. She was seen by CT surgery day of admission
and was sent to the ER for evaluation. She had CT PE chest completed which demonstrates right lower lobe PE which has been present on previous occasions. She did not feel any worsening shortness of breath, wheezing or tightness. She did have
intermittent chest pain. We are consulted for evaluation.
RLL PE, acute
Nausea
Chest pain
Malaise
Chronic conditions DIRECTOR OF STRATEGIC INITIATIVES:
Restrictive lung disease
Pulmonary nodule
Former tobacco smoker (quit 2021)
History of PE (2018 and 2023) on Xarelto with history of thrombectomy x 2, at [facility] and at [facility]
Depression
s/p POTS stimulator
Right subdural hematoma from fall requiring neurosurgical intervention ([place] � 01/29/2021)
Iliac artery thrombosis
Cerebral hemorrhage
Chronic diastolic heart failure
History of pneumonia
Severe mitral valve insufficiency s/p radical mitral valve repair + left atrial appendage exclusion 03/04/25
CKD
Hypertension
Hyperlipidemia
JAK2 gene mutation with coagulopathy
Von Willebrand's disease
DM type II
History of PCV
PTSD
History of CVA
Severe MARIANNA, HST 2021 AHI 35.5
Obesity, BMI 33
Plan:
No oxygen was needed on admission, currently saturating >90% on RA
She has not needed oxygen at baseline
Prior history of lung disease is noted including restrictive lung disease, history of recurrent PE, MARIANNA on CPAP, pulmonary nodule, former smoker
She does follow in our office, most recent PFT indicating restrictive pattern that is overall moderately reduced
This is likely based on her BMI and sedentary lifestyle
Suspect patient has acute PE rather than chronic
CT obtained indicating right lower lobe findings but prior CT scan in 02/2025 did not have contrast, report did not indicate there was presence of PE
The last PE known to record was at [facility] in 07/2023, records reviewed--CT chest 08/19/23: Extensive BL PE with saddle embolus w/ RHS
She had prior PE in 2019 at [facility], records are not available for review--reports thrombectomy was completed at [facility] and [facility]
She had prior contrast CT imaging in 2020 in our records that indicate no PE
She notes that she had interrupted her Xarelto following discharge on last admission from 02/28-03/26, presumably this may have been due to a brand-new embolus
Other features that may suggest new PE as well as that her echocardiogram is demonstrating worsening pulmonary hypertension
Prior ECHO results are reviewed in comparison to 03/31 study
She also has new severely dilated left atrium, mildly dilated right atrium
She had recently undergone mitral valve replacement 03/04--valve has trivial regurg
She is noted to have severe tricuspid regurgitation with estimated PA pressure 58, which has been increased from 46
Weight loss measures recommended
Obesity likely contributing to respiratory symptoms
MARIANNA history, continue PAP
Will need outpatient pulmonary evaluation in our office for PFTs and 6MWT
Reviewed with patient
Discharge planning per team
Diagnostic Data
Chest X-Ray: CXR 05/03/19: Slight increase in peribronchial markings in the mid to lower lung suggesting possible bronchitis. Possible basilar atelectasis.
Chest x-ray 08/21/20-NAD.
CXR 06/10/22- subtle bilateral interstitial infiltrates in upper and lower lung wylie.
CT Scan:
CHEST w/ IV 03/31/25- Examination is positive for pulmonary embolism involving the proximal aspect of the right lower lobe pulmonary artery. Comparing to prior examinations, question whether this could represent chronic artery embolism, with similar
appearance of right lower lobe pulmonary artery branches to unenhanced CT of the chest from February 28, 2025. Enlargement of the right atrium and right ventricle, findings suggestive of elevated right heart pressure. As warranted, consideration for
follow-up CT angiography of the chest after treatment, with particular attention to the right lower lobe pulmonary artery and its branches. Discoid atelectasis within both lungs. No significant pleural effusion or pericardial effusion. Fatty
infiltration of the liver.
CHEST W/O IV contrast 02/28/25- There are several solid pulmonary nodules in the right lung which are not definitively changed from 06/23/2021 which include a 4 mm solid nodule in the middle lobe (image #54, series #201), a 4.7 mm nodule in the
anterior segment of the right upper lobe (image #40), a 3.9 mm solid pulmonary nodule in the anterior segment of the right upper lobe (image #38), a 4.4 mm pulmonary nodule in the peripheral right upper lobe (image #38), and a 4.6 mm nodule in the
posterior segment of the right upper lobe (image #39). There are a few tiny subpleural and centrilobular nodules in the lingula which are not definitively changed, one measuring 4 mm in size (image #41). Many of the nodules are tiny subpleural
groundglass nodules in the anterior segment of the left upper lobe. Enlarged left atrium consistent with mitral valve regurgitation. Mild pulmonary arterial hypertension. Mild cylindrical bronchiectasis and bronchitis in the lower lobes. Moderate
scarring in the basilar segments of the right lower lobe with associated volume loss and mild elevation of the right hemidiaphragm.
CT chest 10/04/20-No pulmonary embolism, 3 mm left upper lobe pulmonary nodule
CT chest 06/23/21- 3mm AVERY nodule. sable
Echo:
ECHO 03/25/19: Normal left ventricular chamber size. Normal left ventricular systolic function. Left ventricular ejection fraction is 65%. Mild-moderate concentric left ventricular hypertrophy (1.3 cm). Stage II diastolic dysfunction suggestive of
abnormal relaxation and increased filling pressures. Severely dilated left atrium. Moderate, eccentric mitral regurgitation. Mild to moderate tricuspid regurgitation.
Echocardiogram 01/20/20-EF 70%, aortic sclerosis without stenosis
Echocardiogram 10/16/20-ES 60-65%, PA systolic 45, no change since December 2019
08/31/2022 with normal left ventricular size and systolic function with visually estimated ejection fraction 55% and normal regional wall motion. Moderate to severe concentric left ventricular hypertrophy. IVSD 1.6 cm. Normal RV size and systolic
function. Mild mitral regurgitation, improved. Trileaflet aortic valve without stenosis or regurgitation. Trace-mild tricuspid regurgitation. Estimated pulmonary artery pressure 45 mmHg assuming a right atrial pressure of 3 mmHg. No pericardial
effusion.
SHAVON 12/26/24: Normal left ventricular size and systolic function. No regional wall motion abnormalities are seen. The ejection fraction is estimated at 60-65%. Mild concentric left ventricular hypertrophy. Normal right ventricular size and function.
Thickened restricted mitral leaflets with reduced excursion suggestive of rheumatic mitral valve disease. Mitral sclerosis without stenosis; mean mitral valve gradient 3 mmHg. Severe central mitral regurgitation with severely dilated left atrium.
Moderate tricuspid regurgitation. Estimated pulmonary artery pressure is 50 mmHg assuming right atrial pressure of 3 mmHg.
ECHO 03/31/25- Normal left ventricular size and function. No regional wall motion abnormalities. The estimated ejection fraction is 65%.
2. Severely dilated left atrium left atrium.
3. Mildly dilated right atrium.
4. No aortic stenosis or aortic insufficiency.
5. #30 annuloplasty ring, 2 harriet cords and cleft closure 03/04/25 mitral valve prosthetic ring is noted. Trivial residual mitral regurgitation
6. Severe tricuspid regurgitation. Estimated pulmonary artery pressure of 58 mmHg assuming a right atrial pressure of 8 mmHg.
7. When compared to the most recent echocardiogram from 03/07/2025, there has been no change in the mitral valve. Estimated pulmonary artery systolic pressure has increased from 46 mmHg to 58 mmHg.
PFT's:
PFT 12/11/20-FEV1 1.08 L-40%, FVC 1.5 L-53%, no significant BD response, TLC 59%, RV 80%, DLCO 32%. Moderately severe restriction and severe reduction in diffusing capacity.
PFT 12/17/21. FVC of 1.97 or 70%, FEV1 of 1.54 or 70%. Ratio 78. TLC of 3.23 or 63%, RV/TLC ratio 36 or 92%, DLCO of 11.10 or 47%, DLCO/VA is 3.55 or 77% (moderate restriction, improved)
Spirometry 07/01/22- FVC 1.53 or 55%, FEV1 1.21 or 55% Ratio 79 (restricted pattern).
6MWT 07/01/22- RA 98%, HR 86 bpm, ambulated 1056 feet and maintained 96-98% on RA. HR increased to 105 bpm.
Reports and relevant images were personally reviewed.
Total time spent today was 51 minutes for this encounter. Time includes reviewing laboratory test/imaging results, reviewing pertinent medical records, obtaining and reviewing medical history, performing an appropriate exam, ordering medications,
tests and procedures. Time also includes documentation of this encounter, coordinating patient care and communicating with other healthcare professionals. Total time does not include separately billed tests performed on this date of service.
Subjective Data
-
Date of Service:
Date of Service: April 03, 2025
Chief Complaint: Pulmonary Follow Up
Subjective:
No new complaints, remains stable on RA
Objective Data
Data Reviewed
Vital Signs / I&O / Oxygen:
Vital Signs
Temp Pulse Resp BP Pulse Ox
98.3 F 81 16 127/78 99
04/03/25 07:00 04/03/25 07:00 04/03/25 07:00 04/03/25 07:00 04/03/25 07:00
Intake and Output
04/02/25 04/03/25 04/04/25
06:59 06:59 06:59
Intake Total 816 / 816 1200 / 1200
Output Total 1150 / 1150
Balance 816 / 816 50 / 50
SaO2 99
Physical Exam
General: Comfortable and Other (NAD)
HEENT: Normocephalic, Anicteric and Moist Mucous Membranes
Cardiovascular: S1-S2 and Regular Rhythm
Respiratory: Clear and Non-Labored Respirations
GI: Soft, Non Distended and Non Tender
Neurology: Awake, Alert, Oriented and No Motor Deficits
Skin: Warm, Dry and Good Color
Labs/Micro/Reports
Lab Data
04/02/25 04:43
04/01/25 09:45
Laboratory Results
04/03/25
08:35
APTT 38.2 H
Microbiology
03/31/25 16:44 Nasal Swab Influenza Types A & B (FELICITA) - Final
Negative for Influenza A & B, NAAT
Negative results must be combined with clinical observations
and patient history.
Nucleic Acid Amplification test (NAAT)performed on the
[employer] NOW platform.
--- NOTE | 2025-04-03 10:25 | PN.CDI ---
CDI
- -
CDI:
Physician Documentation Request
Admit Date: 03/31/25 22:16
Dear Doctor Corbin,
Please review the following and provide your response in the progress notes.
Clinical Indicators:
PN, 04/02
#...admitted for Xarelto interruption post recent discharge
#...likely causing new event of pulmonary embolism
#Noted with worsening pulmonary hypertension on echocardiogram.
#...Elevated D-dimer
#All above suggesting acute PE
Consult, 04/02
#Other features that may suggest new PE as well as that her
#...echocardiogram is demonstrating worsening pulmonary hypertension
#...new severely dilated left atrium, mildly dilated right atrium
#...recently undergone mitral valve replacement 03/04--valve has trivial regurg
#...severe tricuspid regurgitation with estimated PA pressure 58,
#...which has been increased from 46
Based on the above and your clinical assessment, please clarify the appropriate diagnosis, if significant, that supports the above abnormalities and additional evaluation, monitoring and/or treatment rendered:
Acute pulmonary embolism with acute cor pulmonale
Acute pulmonary embolism without acute cor pulmonale
Other (please specify)
Use of terms such as suspected, likely, concern for, or probable (associated with a specific diagnosis that is being evaluated, monitored, or treated as if it exists) are acceptable and can be coded in the inpatient setting, when documented at the
time of discharge.
Thank you,
Agnes Childress RN BSN CCDS
CDI Specialist
Please contact via tiger text
Please use your independent medical judgment in providing your response.
--- NOTE | 2025-04-03 10:57 | W.PN.ONC2 ---
Today's Communication / Plan
-
Patient has confirmed that she has been compliant to Xarelto, and there were no missed doses.
Upon review of external records, imaging from [facility] in 2023 reveals a similar finding at the time-likely chronic clot.
Patient to follow-up with Dr. Salvatore Dejesus at [facility] 04/23/2025
Impression
Impression
# History of chronic pulmonary embolism/VTE
#Mitral valve regurgitation status post mitral valve repair
# Pulmonary hypertension
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
#Von Willebrand's disease
Plan
Plan
- Recent CT chest showed findings consistent with an organized/likely chronic clot rather than new pulmonary embolism. There is evidence of previous right-sided PE from when she was seen at [facility] in 2023 (thrombectomy on left side performed
at the time).
- D-dimer elevated at 1.27, however it is nonspecific.
- Monitor vitals and oxygen saturation closely, assess for any signs of decompensation.
- Patient has history of von Willebrand's disease which adds to bleeding risk. Trend CBC.
- History of polycythemia vera- continue hydroxyurea to maintain hematocrit below 45%. Trend CBC.
- Continue supportive care with antiemetics, hydration and pain control as needed.
- Patient follows up with Dr. Marquez Dejesus at [facility] on 04/23/25.
Subjective/Objective
Subjective
Upon evaluation today, patient states she feels well. No new symptoms. She expresses that she never stated there was a gap in Xarelto treatment, and she has been compliant to it.
Vital Signs:
Vital Signs
Temp Pulse Resp BP Pulse Ox
98.3 F 81 16 127/78 99
04/03/25 07:00 04/03/25 07:00 04/03/25 07:00 04/03/25 07:00 04/03/25 07:00
Lab Results:
Laboratory Data
WBC 7.7 10^3/uL (4.8-10.8) 04/02/25 04:43
Hgb 10.6 g/dL (12.0-16.0) L 04/02/25 04:43
Plt Count 226 10^3/uL (130-400) 04/02/25 04:43
APTT 38.2 Sec (23.4-35.0) H 04/03/25 08:35
eGFR > 60.00 04/01/25 09:45
Physical Exam
HEENT: Moist Mucous Membranes
Cardiology: Normal Sinus Rhythm, S1 and S2
Pulmonary: Clear
GI: Soft and Normal Bowel Sounds
Orders
Orders
Orders From Last 24 Hours
04/02/25 11:36
D-Dimer Routine
[2025-04-03 11:00] VITALS: BP 102/62
--- NOTE | 2025-04-03 11:38 | CM ---
Chart reviewed and patient to return to home when stable, no needs.
Plan; Home no needs when stable.
[2025-04-03 11:43] LABS: Glucose - Point of Care 185 mg/dl (70-99)
--- NOTE | 2025-04-03 13:12 | W.DS.TRANS ---
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
-
Discharge Instructions:
Discharge Diagnosis/Procedures Recurrent PE
Status post radical mitral valve repair for
severe mitral regurgitation 03/04/2025.
JAK2 polycythemia vera with history of
hypercoagulable complications and multiple
episodes of pulmonary embolism on Xarelto STOCK SPECULATOR.
Von Willebrand disease.
Obstructive sleep apnea on CPAP.
Type 2 diabetes.
Hypertension�dyslipidemia
Class I obesity with BMI of 34.
History of right subdural hematoma status post
requiring neurosurgical intervention 02/13.
CKD stage II with baseline creatinine 1.2.
Depression.
History of duodenal ectasia
Tobacco use disorder
Diet Regular
Instructions:
Stand-Alone Forms:
Changes to Home Medications: Yes
Discharge Medications:
DC Medications w/original date entered in [facility]
clonazepam 1 mg tablet 1 mg PO TID Mental Health/Anxiety 10/08/20
hydroxyurea 500 mg capsule 1,500 mg PO DAILY POLYCYTHEMIA VERA 10/08/20
rivaroxaban 20 mg tablet (Xarelto) 20 mg PO DAILY Blood clot prevention/tx 10/08/20
atorvastatin 40 mg tablet 40 mg PO HS High cholesterol 01/12/21
bupropion HCl 150 mg 24 hr tablet, extended release (Wellbutrin XL) 150 mg PO DAILY mental health 06/15/22
dapagliflozin propanediol 10 mg tablet (Farxiga) 10 mg PO DAILY Heart Failure/DIABETES 06/15/22
cholecalciferol (vitamin D3) 10 mcg (400 unit) chewable tablet (Vitamin D3) 20 mcg PO DAILY Supplement 12/26/24
famotidine 20 mg tablet 20 mg PO DAILYPRN PRN GERD 12/26/24
fluticasone propionate 50 mcg/actuation nasal spray,suspension 1 spray intranasal DAILYPRN PRN allergies 12/26/24
insulin glargine 100 unit/mL (3 mL) subcutaneous pen (Zhen Wright U-100 Insulin) 10 unit SC BID Diabetes 12/26/24
magnesium 200 mg tablet 400 mg (2 x 200 mg) PO DAILY Supplement #0 tabs 03/06/25
melatonin 10 mg tablet 10 mg PO HS insomnia #0 tabs 03/06/25
pantoprazole 40 mg tablet,delayed release 40 mg PO BID Gastrointestinal issue #0 tabs 03/06/25
quetiapine 100 mg tablet (Seroquel) 100 mg PO HS Mental Health/Anxiety #0 tabs 03/06/25
zolpidem 12.5 mg tablet,extended release,multiphase 12.5 mg PO HS insomnia #0 tabs 03/06/25
furosemide 40 mg tablet 40 mg PO DAILY Fluid retention/Swelling #30 tabs 03/11/25
midodrine 5 mg tablet 5 mg PO TID@0800,1300,1800 PRN SBP </= 100 #20 tabs 03/11/25
potassium chloride 20 mEq tablet,extended release(part/cryst) 20 meq PO DAILY Supplement #30 tabs 03/11/25
albuterol sulfate 90 mcg/actuation aerosol inhaler 2 puff inhalation R Q6HPRN PRN sob 03/31/25
bupropion HCl 300 mg 24 hr tablet, extended release (Wellbutrin XL) 300 mg PO DAILY 03/31/25
simethicone 80 mg chewable tablet 80 mg PO DAILYPRN PRN gas pains 03/31/25
rivaroxaban 15 mg tablet (Xarelto) 15 mg PO BID #42 tabs 04/03/25
Home Medication Changes
Xarelto loading dose for 21 days
Pending Results: No
[2025-04-03] MEDS: FLUZONE (6 mos+) 2025-2026 FORMULA 0.5 ML IM (14:22)
== END 2025-04-03 14:40 | disposition home or self-care (01) | DRG 176 ==
LOC: 4 WEST ACU 22:16
PROVIDERS: Nurse Practitioner Family; ADMITTING PHYSICIAN Hospitalist; ATTENDING PHYSICIAN Internal Medicine; CONSULT PHYSICIAN Internal Medicine; EMERGENCY PHYSICIAN Student in an Organized Health Care Education/Training Program; FAMILY PHYSICIAN Internal Medicine; OTHER PHYSICIAN Internal Medicine Hematology & Oncology
PROC: 3E02340 Introduction of Influenza Vaccine into Muscle, Percutaneous Approach (ICD-10-PCS; 2025-04-03)
DX: I26.99 Other pulmonary embolism without acute cor pulmonale (principal); I13.0 Hypertensive heart and chronic kidney disease with heart failure and stage 1 through stage 4 chronic kidney disease, or unspecified chronic kidney disease; D68.00 Von Willebrand disease, unspecified; I50.32 Chronic diastolic (congestive) heart failure; J98.11 Atelectasis; I5A Non-ischemic myocardial injury (non-traumatic); N18.2 Chronic kidney disease, stage 2 (mild); I07.1 Rheumatic tricuspid insufficiency; I05.1 Rheumatic mitral insufficiency; I27.20 Pulmonary hypertension, unspecified; D45 Polycythemia vera; E66.812 Obesity, class 2; J98.4 Other disorders of lung; R91.1 Solitary pulmonary nodule; F32.A Depression, unspecified; G47.33 Obstructive sleep apnea (adult) (pediatric); F43.10 Post-traumatic stress disorder, unspecified; D63.1 Anemia in chronic kidney disease; E11.22 Type 2 diabetes mellitus with diabetic chronic kidney disease; F17.200 Nicotine dependence, unspecified, uncomplicated; E78.00 Pure hypercholesterolemia, unspecified; G47.00 Insomnia, unspecified; G90.A Postural orthostatic tachycardia syndrome [POTS]; K21.9 Gastro-esophageal reflux disease without esophagitis; K76.0 Fatty (change of) liver, not elsewhere classified; Z11.52 Encounter for screening for COVID-19; Z23 Encounter for immunization; Z68.34 Body mass index [BMI] 34.0-34.9, adult; Z79.899 Other long term (current) drug therapy; Z79.01 Long term (current) use of anticoagulants; Z86.711 Personal history of pulmonary embolism; Z86.73 Personal history of transient ischemic attack (TIA), and cerebral infarction without residual deficits; Z87.01 Personal history of pneumonia (recurrent); Z95.2 Presence of prosthetic heart valve
CPT/HCPCS: 71275; 80048; 80053; 82962; 83036; 83880; 84484; 85025; 85027; 85379; 85730; 87502; 87811; 90656; 93005; 93308; 93321; 93325; 93970; 96374; 96375; 99291; G0008; Q9967